=== PATIENT | male | born 1935 | race Caucasian/White ===

== ENCOUNTER → 2016-06-25 | Outpatient (CLI) | payer MEDICARE ==
[~2016-06-25] MED LIST: AMLO2.5T PO; ASCO1TAB22 PO; ASP325T PO; ASPI-999 PO; ATEN50TA PO; B12/1TAB PO; CA C1TAB75 PO; CLON0.5T25 PO; FINA1TAB10 PO; FLAX100031 PO; IRON18TA PO; IRON1TAB94 PO; MAGN250T13 PO; MULT-974 PO; OMG1KC PO; SIME125C78 PO; SIMV40TA4 PO; THYROXINE AD; UBID100C17 PO; VITA80006 PO
--- OUTSIDE RECORDS SUMMARY | 2016-06-25 13:50 | XMS REPORT | Continuity of Care Document ---
Author Author [facility] Organization [facility] Address Unknown Phone Unavailable Allergies Active Description Code Type Severity Reaction Onset Reported/Identified Relationship to Patient Clinical Status Yes No Known Drug Allergies [id number] Drug Allergy Unknown N/ A 11/12/2012 Medications Problems Date Dx Coded Attending Type Code Diagnosis Diagnosed By 10/10/2009 Ot 211.3 10/10/2009 Ot V10.05 10/10/2009 Ot V67.09 04/02/2010 Ot 780.79 04/02/2010 Ot V10.05 04/02/2010 Ot V67.09 06/09/2012 Ot 272.4 HYPERLIPIDEMIA NEC/NOS 06/09/2012 Ot 285.9 ANEMIA NOS 06/09/2012 Ot 403.90 HYPTNSV CHR KID DIS, UNSPEC, W CHR KD ST 06/09/2012 Ot 585.9 CHRONIC KIDNEY DISEASE, UNSPECIFIED 06/09/2012 Ot V10.05 HX OF COLONIC MALIGNANCY 06/09/2012 Ot V12.54 PERSONAL HX OF TIA, CEREBRAL INFARCTION 06/09/2012 Ot V45.72 ACQRD ABSENCE INTESTINE - LARGE/SMALL 06/09/2012 Ot V58.66 LONG-TERM (CURRENT) USE OF ASPIRIN 06/09/2012 Ot V58.69 OTH MED,LT,CURRENT USE 06/09/2012 Ot V67.09 SURGERY FOLLOW-UP, OTHER SURGERY 11/12/2012 BEAN CEJA MD Ot 272.4 HYPERLIPIDEMIA NEC/NOS 11/12/2012 BEAN CEJA MD Ot 401.9 HYPERTENSION NOS 11/12/2012 BEAN CEJA MD Ot 600.00 HYPERTROPHY (BENIGN) OF PROSTATE W/O URI 11/12/2012 BEAN CEJA MD Ot V10.05 HX OF COLONIC MALIGNANCY 11/12/2012 BEAN CEJA MD Ot V12.54 PERSONAL HX OF TIA, CEREBRAL INFARCTION 11/12/2012 BEAN CEJA MD Ot V45.72 ACQRD ABSENCE INTESTINE - LARGE/SMALL 11/12/2012 MARCIAL CHAKRABORTY, BEAN Ot V67.09 SURGERY FOLLOW-UP, OTHER SURGERY 12/12/2012 ALIZA CHAKRABORTY, DIAMOND Ot 272.4 HYPERLIPIDEMIA NEC/NOS 12/12/2012 ALIZA CHAKRABORTY, DIAMOND Ot 285.9 ANEMIA NOS 12/12/2012 ALIZA CHAKRABORTY, DIAMOND Ot 403.90 HYPTNSV CHR KID DIS, UNSPEC, W CHR KD ST 12/12/2012 ALIZA CHAKRABORTY, DIAMOND Hussein 585.9 CHRONIC KIDNEY DISEASE, UNSPECIFIED 12/12/2012 DIAMOND ABRAMS MD, Ot V10.05 HX OF COLONIC MALIGNANCY 12/12/2012 ALIZA CHAKRABORTY, DIAMOND Ot V12.54 PERSONAL HX OF TIA, CEREBRAL INFARCTION 12/12/2012 DIAMOND ABRAMS MD, Ot V45.72 ACQRD ABSENCE INTESTINE - LARGE/SMALL 12/12/2012 DIAMOND ABRAMS MD, Ot V58.66 LONG-TERM (CURRENT) USE OF ASPIRIN 12/12/2012 DIAMOND ABRAMS MD, Ot V58.69 OTH MED,LT,CURRENT USE 12/12/2012 ALIZA CHAKRABORTY, DIAMOND Ot V67.09 SURGERY FOLLOW-UP, OTHER SURGERY 01/04/2013 DALE CHAKRABORTY, WILLIAM Andrew Ot 593.9 RENAL URETERAL DIS NOS 06/23/2014 JONATHON CHAKRABORTY, BALTA S Ot 403.10 06/23/2014 JONATHON CHAKRABORTY, AHMED S Ot 585.3 06/23/2014 JONATHON CHAKRABORTY, AHMED S Ot 588.0 06/23/2014 JONATHON CHAKRABORTY, AHMED S Ot 791.0 06/30/2014 DALE CHAKRABORTY, WILLIAM Andrew Ot 786.05 06/30/2014 DALE CHAKRABORTY, WILLIAM Andrew Ot 786.50 01/12/2015 ALIZA CHAKRABORTY, DIAMOND Ot 272.4 01/12/2015 ALIZA CHAKRABORTY, DIAMOND Ot 285.9 01/12/2015 ALIZA CHAKRABORTY, DIAMOND Ot 403.90 01/12/2015 ALIZA CHAKRABORTY, DIAMOND Ot 585.9 01/12/2015 ALIZA CHAKRABORTY, DIAMOND Ot V10.05 01/12/2015 ALIZA CHAKRABORTY, DIAMOND Ot V12.54 01/12/2015 ALIZA CHAKRABORTY, DIAMOND Ot V45.72 01/12/2015 ALIZA CHAKRABORTY, BARRIEDILIP Ot V58.66 01/12/2015 ALIZA CHAKRABORTY, DIAMOND Ot V58.69 01/12/2015 ALIZA CHAKRABORTY, BARRIEDILIP Ot V67.09 01/12/2015 Ot 272.4 01/12/2015 Ot 403.90 01/12/2015 Ot 585.9 01/12/2015 Ot V10.05 01/12/2015 Ot V12.54 01/12/2015 Ot V45.72 01/12/2015 Ot V58.66 01/12/2015 Ot V58.69 01/12/2015 Ot V67.09 01/12/2015 Ot 593.2 01/12/2015 Ot 593.9 01/12/2015 Ot 780.79 01/12/2015 Ot V10.05 01/12/2015 Ot V67.09 01/12/2015 Ot 272.4 01/12/2015 Ot 403.90 01/12/2015 Ot 585.9 01/12/2015 Ot V10.05 01/12/2015 Ot V12.54 01/12/2015 Ot V45.72 01/12/2015 Ot V58.66 01/12/2015 Ot V58.69 01/12/2015 Ot V67.09 01/12/2015 Ot 272.4 01/12/2015 Ot 403.90 01/12/2015 Ot 585.9 01/12/2015 Ot V10.05 01/12/2015 Ot V12.54 01/12/2015 Ot V45.72 01/12/2015 Ot V58.66 01/12/2015 Ot V58.69 01/12/2015 Ot V67.09 01/12/2015 Ot V10.05 01/12/2015 Ot 272.4 01/12/2015 Ot 403.90 01/12/2015 Ot 585.9 01/12/2015 Ot V10.05 01/12/2015 Ot V12.54 01/12/2015 Ot V45.72 01/12/2015 Ot V58.66 01/12/2015 Ot V58.69 01/12/2015 Ot V67.09 01/12/2015 Ot 285.9 01/12/2015 Ot V10.05 01/12/2015 MARCIAL CHAKRABORTY, TAKAAKI Ot V72.84 01/12/2015 ARMANDO CHAKRABORTY, ALIREZA A Ot 585.3 01/12/2015 ALIZA CHAKRABORTY, BARRIE-DILIP Ot 272.4 01/12/2015 ALIZA CHAKRABORTY, SOOD-DILIP Ot 403.90 01/12/2015 ALIZA CHAKRABORTY, SOOD-DILIP Ot 585.9 01/12/2015 ALIZA CHAKRABORTY, SOOD-DILIP Ot V10.05 01/12/2015 ALIZA CHAKRABORTY, BARRIE-DILIP Ot V12.54 01/12/2015 ALIZA CHAKRABORTY, SOOD-DILIP Ot V45.72 01/12/2015 ALIZA CHAKRABORTY, SOOD-DILIP Ot V58.66 01/12/2015 ALIZA CHAKRABORTY, BARRIE-DILIP Ot V58.69 01/12/2015 ALIZA CHAKRABORTY, SOOD-DILIP Ot V67.09 01/12/2015 Ot 593.9 01/12/2015 ARMANDO CHAKRABORTY, ALIREZA A Ot 403.10 01/12/2015 ARMANDO CHAKRABORTY, ALIREZA A Ot 585.3 01/12/2015 ARMANDO CHAKRABORTY, ALIREZA A Ot 588.0 01/12/2015 ARMANDO CHAKRABORTY, ALIREZA A Ot 791.0 01/12/2015 ALIZA CHAKRABORTY, SOOD-DILIP Ot 272.4 01/12/2015 ALIZA CHAKRABORTY, BARRIE-DILIP Ot 285.9 01/12/2015 ALIZA CHAKRABORTY, BARRIE-DILIP Ot 403.90 01/12/2015 ALIZA CHAKRABORTY, SOOD-DILIP Ot 585.9 01/12/2015 ALIZA CHAKRABORTY, BARRIE-DILIP Ot V10.05 01/12/2015 ALIZA CHAKRABORTY, SOOD-DILIP Ot V12.54 01/12/2015 ALIZA CHAKRABORTY, SODO-DILIP Ot V45.72 01/12/2015 ALIZA CHAKRABORTY, SOOD-DILIP Ot V58.66 01/12/2015 ALIZA CHAKRABORTY, BARRIE-DILIP Ot V58.69 01/12/2015 ALIZA CHAKRABORTY, SOOD-DILIP Ot V67.09 01/12/2015 ARMANDO CHAKRABORTY, ALIREZA A Ot 403.10 01/12/2015 ARMANDO CHAKRABORTY, ALIREZA A Ot 585.3 01/12/2015 ARMANDO CHAKRABORTY, ALIREZA A Ot 588.0 01/12/2015 ARMANDO CHAKRABORTY, ALIREZA A Ot 791.0 01/12/2015 DALE CHAKRABORTY, WILLIAM Andrew Ot 786.05 01/12/2015 DALE CHAKRABORTY, WILLIAM Andrew Ot 786.50 01/12/2015 JONATHON CHAKRABORTY, BALTA S Ot 403.10 01/12/2015 JONATHON CHAKRABORTY, AHMED S Ot 585.3 01/12/2015 JONATHON CHAKRABORTY, MATTMED S Ot 588.0 01/12/2015 JONATHON CHAKRABORTY, MED S Ot 791.0 01/12/2015 ALIZA CHAKRABORTY, DIAMOND Ot 272.4 01/12/2015 ALIZA CHAKRABORTY, DIAMOND Ot 285.9 01/12/2015 ALIZA CHAKRABORTY, DIAMOND Ot 403.90 01/12/2015 ALIZA CHAKRABORTY, DIAMOND Ot 585.9 01/12/2015 ALIZA CHAKRABORTY, SOOD-DILIP Ot V10.05 01/12/2015 ALIZA CHAKRABORTY, DIAMOND Ot V12.54 01/12/2015 ALIZA CHAKRABORTY, SOOD-DILIP Ot V45.72 01/12/2015 ALIZA CHAKRABORTY, DIAMOND Ot V58.66 01/12/2015 ALIZA CHAKRABORTY, DIAMOND Ot V58.69 01/12/2015 ALIZA CHAKRABORTY, SOOD-DILIP Ot V67.09 01/12/2015 ALIZA CHAKRABORTY, DIAMOND Ot 285.9 01/12/2015 JONATHON CHAKRABORTY, MED S Ot 403.10 01/12/2015 JONATHON CHAKRABORTY, MATTMED S Ot 585.3 01/12/2015 JONATHON CHAKRABORTY, BALTA S Ot 588.0 01/12/2015 JONATHON CHAKRABORTY, MED S Ot 791.0 01/18/2015 ALIZA CHAKRABORTY, DIAMOND Ot 285.9 01/18/2015 JONATHON CHAKRABORTY, BALTA Copeland Ot 403.10 01/18/2015 JONATHON CHAKRABORTY, MATTMED S Ot 585.3 01/18/2015 JONATHON CHAKRABORTY, MATTMED S Ot 588.0 01/18/2015 JONATHON CHAKRABORTY, MED S Ot 791.0 02/02/2015 ALIZA CHAKRABORTY, DIAMOND Ot 272.4 02/02/2015 ALIZA CHAKRABORTY, SOOD-DILIP Ot 285.9 02/02/2015 ALIZA CHAKRABORTY, BARRIE-DILIP Ot 403.90 02/02/2015 ALIZA CHAKRABORTY, BARRIE-DILIP Ot 585.9 02/02/2015 ALIZA CHAKRABORTY, BARRIE-DILIP Ot V10.05 02/02/2015 ALIZA CHAKRABORTY, BARRIE-DILIP Ot V12.54 02/02/2015 ALIZA CHAKRABORTY, BARRIE-DILIP Ot V45.72 02/02/2015 ALIZA CHAKRABORTY, BARRIE-DILIP Ot V58.66 02/02/2015 ALIZA CHAKRABORTY, BARRIE-DILIP Ot V58.69 02/02/2015 ALIZA CHAKRABORTY, BARRIE-DILIP Ot V67.09 02/02/2015 NEW, DANYA Waters. BIOMECHANICAL ENGINEER-C Ot 263.8 02/02/2015 NEW, DANYA G. BIOMECHANICAL ENGINEER-C Ot 272.4 02/02/2015 NEW, DANYA G. BIOMECHANICAL ENGINEER-C Ot 275.2 02/02/2015 NEW, DANYA G. BIOMECHANICAL ENGINEER-C Ot 276.1 02/02/2015 NEW, DANYA G. BIOMECHANICAL ENGINEER-C Ot 403.90 02/02/2015 NEW, DANYA G. BIOMECHANICAL ENGINEER-C Ot 414.00 02/02/2015 NEW, DANYA G. BIOMECHANICAL ENGINEER-C Ot 428.0 02/02/2015 NEW, DANYA G. BIOMECHANICAL ENGINEER-C Ot 585.4 02/02/2015 NEW, DANYA G. BIOMECHANICAL ENGINEER-C Ot 599.0 02/02/2015 NEW, DANYA G. BIOMECHANICAL ENGINEER-C Ot 600.00 02/02/2015 NEW, DANYA G. BIOMECHANICAL ENGINEER-C Ot 791.0 02/09/2015 MARCIAL CHAKRABORTY, BEAN Ot E78.0 PURE HYPERCHOLESTEROLEMIA 02/09/2015 MARCIAL CHAKRABORTY, BEAN Ot I10 ESSENTIAL (PRIMARY) HYPERTENSION 02/09/2015 MARCIAL CHAKRABORTY, BEAN Ot K63.5 POLYP OF COLON 02/09/2015 MARCIAL CHAKRABORTY, BEAN Ot K64.4 RESIDUAL HEMORRHOIDAL SKIN TAGS 02/09/2015 MARCIAL CHAKRABORTY, BEAN Ot K64.8 OTHER HEMORRHOIDS 07/21/2015 NEW, DANYA Jt. BIOMECHANICAL ENGINEER-C Ot E46 07/21/2015 NEW, DANYA Jt. BIOMECHANICAL ENGINEER-C Ot E83.42 07/21/2015 NEW, DANYA G. BIOMECHANICAL ENGINEER-C Ot E87.1 07/21/2015 NEW, DANYA G. BIOMECHANICAL ENGINEER-C Ot I12.9 07/21/2015 NEW, DANYA Ferreira BIOMECHANICAL ENGINEER-C Ot I25.10 07/21/2015 NEW, DANYA Ferreira BIOMECHANICAL ENGINEER-C Ot I50.9 07/21/2015 NEW, DANYA Ferreira BIOMECHANICAL ENGINEER-C Ot N18.4 07/21/2015 NEW, DANYA Ferreira BIOMECHANICAL ENGINEER-C Ot N40.0 08/01/2015 Ot 780.79 08/01/2015 Ot V10.05 08/01/2015 Ot V67.09 08/01/2015 Ot 272.4 08/01/2015 Ot 403.90 08/01/2015 Ot 585.9 08/01/2015 Ot V10.05 08/01/2015 Ot V12.54 08/01/2015 Ot V45.72 08/01/2015 Ot V58.66 08/01/2015 Ot V58.69 08/01/2015 Ot V67.09 08/01/2015 Ot 272.4 08/01/2015 Ot 403.90 08/01/2015 Ot 585.9 08/01/2015 Ot V10.05 08/01/2015 Ot V12.54 08/01/2015 Ot V45.72 08/01/2015 Ot V58.66 08/01/2015 Ot V58.69 08/01/2015 Ot V67.09 08/01/2015 Ot V10.05 08/01/2015 Ot 272.4 08/01/2015 Ot 403.90 08/01/2015 Ot 585.9 08/01/2015 Ot V10.05 08/01/2015 Ot V12.54 08/01/2015 Ot V45.72 08/01/2015 Ot V58.66 08/01/2015 Ot V58.69 08/01/2015 Ot V67.09 08/01/2015 Ot 285.9 08/01/2015 Ot V10.05 08/01/2015 MARCIAL CHAKRABORTY, BEAN Ot V72.84 08/01/2015 ARMANDO CHAKRABORTY, ALIREZA A Ot 585.3 08/01/2015 ALIZA CHAKRABORTY, SOODDILIP Ot 272.4 08/01/2015 LAIZA CHAKRABORTY, [facility] Ot 403.90 08/01/2015 ALIZA CHAKRABORTY, [facility] Ot 585.9 08/01/2015 ALIZA CHAKRABORTY, DIAMOND Ot V10.05 08/01/2015 ALIZA CHAKRABORTY, BARRIE-DILIP Ot V12.54 08/01/2015 ALIZA CHAKRABORTY, BARRIE-DILIP Ot V45.72 08/01/2015 ALIZA CHAKRABORTY, DIAMOND Ot V58.66 08/01/2015 ALIZA CHAKRABORTY, DIAMOND Ot V58.69 08/01/2015 ALIZA CHAKRABORTY, BARRIE-DILIP Ot V67.09 08/01/2015 Ot 593.9 08/01/2015 ARMANDO CHAKRABORTY, ALIREZA A Ot 403.10 08/01/2015 ARMANDO CHAKRABORTY, ALIREZA A Ot 585.3 08/01/2015 ARMANDO CHAKRABORTY, ALIREZA A Ot 588.0 08/01/2015 ARMANDO CHAKRABORTY, ALIREZA A Ot 791.0 08/01/2015 ALIZA CHAKRABORTY, BARRIE-DILIP Ot 272.4 08/01/2015 ALIZA CHAKRABORTY, BARRIE-DILIP Ot 285.9 08/01/2015 ALIZA CHAKRABORTY, SOOD-DILIP Ot 403.90 08/01/2015 ALIZA CHAKRABORTY, SOOD-DILIP Ot 585.9 08/01/2015 ALIZA CHAKRABORTY, DIAMOND Ot V10.05 08/01/2015 ALIZA CHAKRABORTY, DIAMOND Ot V12.54 08/01/2015 ALIZA CHAKRABORTY, DIAMOND Ot V45.72 08/01/2015 ALIZA CHAKRABORTY, DIAMOND Ot V58.66 08/01/2015 ALIZA CHAKRABORTY, DIAMOND Ot V58.69 08/01/2015 ALIZA CHAKRABORTY, DIAMOND Ot V67.09 08/01/2015 ARMANDO CHAKRABORTY, ALIREZA A Ot 403.10 08/01/2015 ARMANDO CHAKRABORTY, ALIREZA A Ot 585.3 08/01/2015 ARMANDO CHAKRABORTY, ALIREZA A Ot 588.0 08/01/2015 ARMANDO CHAKRABORTY, ALIREZA A Ot 791.0 08/01/2015 DALE CHAKRABORTY, WILLIAM Andrew Ot 786.05 08/01/2015 WILLIAM HUNTER MD Ot 786.50 08/01/2015 JONATHON CHAKRABORTY, BALTA Copeland Ot 403.10 08/01/2015 JONATHON CHAKRABORTY, BALTA S Ot 585.3 08/01/2015 JONATHON CHAKRABORTY, AHMED S Ot 588.0 08/01/2015 JONATHON CHAKRABORTY, AHMED S Ot 791.0 08/01/2015 ALIZA CHAKRABORTY, SOOD-DILIP Ot 272.4 08/01/2015 ALIZA CHAKRABORTY, BARRIE-DILIP Ot 285.9 08/01/2015 ALIZA CHAKRABORTY, BARRIE-DILIP Ot 403.90 08/01/2015 ALIZA CHAKRABORTY, SOOD-DILIP Ot 585.9 08/01/2015 ALIZA CHAKRABORTY, SOOD-DILIP Ot V10.05 08/01/2015 ALIZA CHAKRABORTY, BARRIE-DILIP Ot V12.54 08/01/2015 ALIZA CHAKRABORTY, BARRIE-DILIP Ot V45.72 08/01/2015 ALIZA CHAKRABORTY, BARRIE-DILIP Ot V58.66 08/01/2015 ALIZA CHAKRABORTY, BARRIE-DILIP Ot V58.69 08/01/2015 ALIZA CHAKRABORTY, BARRIE-DILIP Ot V67.09 08/01/2015 ALIZA CHAKRABORTY, BARRIE-DILIP Ot 285.9 08/01/2015 JONATHON CHAKRABORTY, AHMED S Ot 403.10 08/01/2015 JONATHON CHAKRABORTY, AHMED S Ot 585.3 08/01/2015 JONATHON CHAKRABORTY, MED S Ot 588.0 08/01/2015 JONATHON CHAKRABORTY, MED S Ot 791.0 08/01/2015 ALIZA CHAKRABORTY, BARRIE-DILIP Ot 272.4 08/01/2015 ALIZA CHAKRABORTY, BARRIE-DILIP Ot 285.9 08/01/2015 ALIZA CHAKRABORTY, BARRIE-DILIP Ot 403.90 08/01/2015 ALIZA CHAKRABORTY, BARRIE-DILIP Ot 585.9 08/01/2015 ALIZA CHAKRABORTY, BARRIE-DILIP Ot V10.05 08/01/2015 ALIZA CHAKRABORTY, BARRIE-DILIP Ot V12.54 08/01/2015 ALIZA CHAKRABORTY, BARRIE-DILIP Ot V45.72 08/01/2015 ALIZA CHAKRABORTY, BARRIE-DILIP Ot V58.66 08/01/2015 ALIZA CHAKRABORTY, BARRIE-DILIP Ot V58.69 08/01/2015 ALIZA CHAKRABORTY, BARRIE-DILIP Ot V67.09 08/01/2015 DANYA SHEFFIELD NP-C Ot 263.8 08/01/2015 DANYA SHEFFIELD NP-C Ot 272.4 08/01/2015 DANYA SHEFFIELD NP-C Ot 275.2 08/01/2015 NEW, DANYA G. BIOMECHANICAL ENGINEER-C Ot 276.1 08/01/2015 NEW, DANYA G. BIOMECHANICAL ENGINEER-C Ot 403.90 08/01/2015 NEW, DANYA G. BIOMECHANICAL ENGINEER-C Ot 414.00 08/01/2015 NEW, DANYA G. BIOMECHANICAL ENGINEER-C Ot 428.0 08/01/2015 NEW, DANYA G. BIOMECHANICAL ENGINEER-C Ot 585.4 08/01/2015 NEW, DANYA G. BIOMECHANICAL ENGINEER-C Ot 599.0 08/01/2015 NEW, DANYA G. BIOMECHANICAL ENGINEER-C Ot 600.00 08/01/2015 NEW, DANYA G. BIOMECHANICAL ENGINEER-C Ot 791.0 08/01/2015 MARCIAL CHAKRABORTY, BEAN Ot Z01.818 08/01/2015 NEW, DANYA G. BIOMECHANICAL ENGINEER-C Ot E46 08/01/2015 NEW, DANYA G. BIOMECHANICAL ENGINEER-C Ot E83.42 08/01/2015 NEW, DANYA G. BIOMECHANICAL ENGINEER-C Ot E87.1 08/01/2015 NEW, DANYA Jt. BIOMECHANICAL ENGINEER-C Ot I12.9 08/01/2015 NEW, DANYA G. BIOMECHANICAL ENGINEER-C Ot I25.10 08/01/2015 NEW, DANYA G. BIOMECHANICAL ENGINEER-C Ot I50.9 08/01/2015 NEW, DANYA G. BIOMECHANICAL ENGINEER-C Ot N18.4 08/01/2015 NEW, DANYA G. BIOMECHANICAL ENGINEER-C Ot N40.0 08/25/2015 ALONA WADE APRN Ot G45.9 TRANSIENT CEREBRAL ISCHEMIC ATTACK, [facility] 08/25/2015 ALONA WADE APRN Ot R53.1 WEAKNESS 11/09/2015 NEW, DANYA G. BIOMECHANICAL ENGINEER-C Ot E46 UNSPECIFIED PROTEIN-CALORIE MALNUTRITION 11/09/2015 NEW, DANYA G. BIOMECHANICAL ENGINEER-C Ot E78.4 OTHER HYPERLIPIDEMIA 11/09/2015 NEW, DANYA G. BIOMECHANICAL ENGINEER-C Ot E83.42 HYPOMAGNESEMIA 11/09/2015 NEW, DANYA G. BIOMECHANICAL ENGINEER-C Ot E87.1 HYPO-OSMOLALITY AND HYPONATREMIA 11/09/2015 NEW, DANYA G. BIOMECHANICAL ENGINEER-C Ot I12.9 HYPERTENSIVE CHRONIC KIDNEY DISEASE W ST 11/09/2015 NEW, DANYA G. BIOMECHANICAL ENGINEER-C Ot I50.9 HEART FAILURE, UNSPECIFIED 11/09/2015 NEW, DANYA G. BIOMECHANICAL ENGINEER-C Ot N18.4 CHRONIC KIDNEY DISEASE, STAGE 4 (SEVERE) 11/09/2015 NEW, DANYA G. BIOMECHANICAL ENGINEER-C Ot N25.0 RENAL OSTEODYSTROPHY 11/09/2015 NEW, DANYA G. BIOMECHANICAL ENGINEER-C Ot N25.81 SECONDARY HYPERPARATHYROIDISM OF RENAL O 11/09/2015 NEW, DANYA G. BIOMECHANICAL ENGINEER-C Ot N40.0 ENLARGED PROSTATE WITHOUT LOWER URINARY 11/09/2015 NEW, DANYA G. BIOMECHANICAL ENGINEER-C Ot R80.9 PROTEINURIA, UNSPECIFIED 11/09/2015 NEW, DANYA G. BIOMECHANICAL ENGINEER-C Ot E46 UNSPECIFIED PROTEIN-CALORIE MALNUTRITION 11/09/2015 NEW, DANYA G. BIOMECHANICAL ENGINEER-C Ot E78.4 OTHER HYPERLIPIDEMIA 11/09/2015 NEW, DANYA G. BIOMECHANICAL ENGINEER-C Ot E83.42 HYPOMAGNESEMIA 11/09/2015 NEW, DANYA G. BIOMECHANICAL ENGINEER-C Ot E87.1 HYPO-OSMOLALITY AND HYPONATREMIA 11/09/2015 NEW, DANYA G. BIOMECHANICAL ENGINEER-C Ot I12.9 HYPERTENSIVE CHRONIC KIDNEY DISEASE W ST 11/09/2015 NEW, DANYA G. BIOMECHANICAL ENGINEER-C Ot I50.9 HEART FAILURE, UNSPECIFIED 11/09/2015 NEW, DANYA G. BIOMECHANICAL ENGINEER-C Ot N18.4 CHRONIC KIDNEY DISEASE, STAGE 4 (SEVERE) 11/09/2015 NEW, DANYA G. BIOMECHANICAL ENGINEER-C Ot N25.0 RENAL OSTEODYSTROPHY 11/09/2015 NEW, DANYA GMaverick BIOMECHANICAL ENGINEER-C Ot N25.81 SECONDARY HYPERPARATHYROIDISM OF RENAL O 11/09/2015 NEW, DANYA G. BIOMECHANICAL ENGINEER-C Ot N40.0 ENLARGED PROSTATE WITHOUT LOWER URINARY 11/09/2015 NEW, DANYA G. BIOMECHANICAL ENGINEER-C Ot R80.9 PROTEINURIA, UNSPECIFIED 11/25/2015 NEW, DANYA G. BIOMECHANICAL ENGINEER-C Ot E46 UNSPECIFIED PROTEIN-CALORIE MALNUTRITION 11/25/2015 NEW, DANYA G. BIOMECHANICAL ENGINEER-C Ot E78.4 OTHER HYPERLIPIDEMIA 11/25/2015 NEW, DANYA G. BIOMECHANICAL ENGINEER-C Ot E83.42 HYPOMAGNESEMIA 11/25/2015 NEW, DANYA G. BIOMECHANICAL ENGINEER-C Ot E87.1 HYPO-OSMOLALITY AND HYPONATREMIA 11/25/2015 NEW, DANYA G. BIOMECHANICAL ENGINEER-C Ot I12.9 HYPERTENSIVE CHRONIC KIDNEY DISEASE W ST 11/25/2015 NEW, DANYA WatersMaverick BIOMECHANICAL ENGINEER-C Ot I50.9 HEART FAILURE, UNSPECIFIED 11/25/2015 NEW, DANYA WatersMaverick BIOMECHANICAL ENGINEER-C Ot N18.4 CHRONIC KIDNEY DISEASE, STAGE 4 (SEVERE) 11/25/2015 NEW, DANYA WatersMaverick BIOMECHANICAL ENGINEER-C Ot N25.0 RENAL OSTEODYSTROPHY 11/25/2015 NEW, DANYA JtMaverick BIOMECHANICAL ENGINEER-C Ot N25.81 SECONDARY HYPERPARATHYROIDISM OF RENAL O 11/25/2015 NEW, DANYA JtMaverick BIOMECHANICAL ENGINEER-C Ot N40.0 ENLARGED PROSTATE WITHOUT LOWER URINARY 11/25/2015 NEW, DANYA JtMaverick BIOMECHANICAL ENGINEER-C Ot R80.9 PROTEINURIA, UNSPECIFIED 01/03/2016 ALIZA CHAKRABORTY, BARREI-DILIP Ot C18.7 MALIGNANT NEOPLASM OF SIGMOID COLON 01/03/2016 ALIZA CHAKRABORTY, BARRIE-DILIP Ot D64.9 ANEMIA, UNSPECIFIED 01/24/2016 ALIZA CHAKRABORTY, DIAMOND Ot C18.7 MALIGNANT NEOPLASM OF SIGMOID COLON 01/24/2016 ALIZA CHAKRABORTY, BARRIE-DILIP Ot D64.9 ANEMIA, UNSPECIFIED 03/05/2016 NEW, DANYA JtMaverick BIOMECHANICAL ENGINEER-C Ot E78.4 OTHER HYPERLIPIDEMIA 03/05/2016 NEW, DANYA JtMaverick BIOMECHANICAL ENGINEER-C Ot N18.3 CHRONIC KIDNEY DISEASE, STAGE 3 (MODERAT 03/06/2016 NEW, DANYA GMaverick BIOMECHANICAL ENGINEER-C Ot E46 UNSPECIFIED PROTEIN-CALORIE MALNUTRITION 03/06/2016 THU SHEFFIELDYvette WatersMaverick BIOMECHANICAL ENGINEER-C Ot E78.4 OTHER HYPERLIPIDEMIA 03/06/2016 NEW, DANYA JtMaverick BIOMECHANICAL ENGINEER-C Ot E83.42 HYPOMAGNESEMIA 03/06/2016 NEW, DANYA G. BIOMECHANICAL ENGINEER-C Ot E87.1 HYPO-OSMOLALITY AND HYPONATREMIA 03/06/2016 NEW, DANYA GMaverick BIOMECHANICAL ENGINEER-C Ot I12.9 HYPERTENSIVE CHRONIC KIDNEY DISEASE W ST 03/06/2016 YOHANNES, DANYA JtMaverick BIOMECHANICAL ENGINEER-C Ot I25.10 ATHSCL HEART DISEASE OF [place] CORONARY 03/06/2016 DANYA SHEFFIELD JtMaverick BIOMECHANICAL ENGINEER-C Ot I50.9 HEART FAILURE, UNSPECIFIED 03/06/2016 NEWDANYA JtMaverick BIOMECHANICAL ENGINEER-C Ot N18.3 CHRONIC KIDNEY DISEASE, STAGE 3 (MODERAT 03/06/2016 DANYA SHEFFIELD G. BIOMECHANICAL ENGINEER-C Ot N25.0 RENAL OSTEODYSTROPHY 03/06/2016 NEW, DANYA G. BIOMECHANICAL ENGINEER-C Ot N25.81 SECONDARY HYPERPARATHYROIDISM OF RENAL O 03/06/2016 NEW, DANYA Ferreira BIOMECHANICAL ENGINEER-C Ot N40.0 BENIGN PROSTATIC HYPERPLASIA WITHOUT LOW 03/06/2016 NEW, DANYA Ferreira BIOMECHANICAL ENGINEER-C Ot R80.9 PROTEINURIA, UNSPECIFIED 03/27/2016 NEW, DANYA Ferreira BIOMECHANICAL ENGINEER-C Ot E46 UNSPECIFIED PROTEIN-[place] MALNUTRITION 03/27/2016 NEW, DANYA Ferreira BIOMECHANICAL ENGINEER-C Ot E78.4 OTHER HYPERLIPIDEMIA 03/27/2016 NEW, DANYA G. BIOMECHANICAL ENGINEER-C Ot E83.42 HYPOMAGNESEMIA 03/27/2016 NEW, DANYA G. BIOMECHANICAL ENGINEER-C Ot E87.1 HYPO-OSMOLALITY AND HYPONATREMIA 03/27/2016 NEW, DANYA Ferreira BIOMECHANICAL ENGINEER-C Ot I12.9 HYPERTENSIVE CHRONIC KIDNEY DISEASE W ST 03/27/2016 NEW, DANYA Ferreira BIOMECHANICAL ENGINEER-C Ot I25.10 ATHSCL HEART DISEASE OF [place] CORONARY 03/27/2016 NEW, DANYA Ferreira BIOMECHANICAL ENGINEER-C Ot I50.9 HEART FAILURE, UNSPECIFIED 03/27/2016 NEW, DANYA Ferreira BIOMECHANICAL ENGINEER-C Ot N18.3 CHRONIC KIDNEY DISEASE, STAGE 3 (MODERAT 03/27/2016 NEW, DANYA Ferreira BIOMECHANICAL ENGINEER-C Ot N25.0 RENAL OSTEODYSTROPHY 03/27/2016 NEW, DANYA Ferreira BIOMECHANICAL ENGINEER-C Ot N25.81 SECONDARY HYPERPARATHYROIDISM OF RENAL O 03/27/2016 NEW, DANYA Ferreira BIOMECHANICAL ENGINEER-C Ot N40.0 BENIGN PROSTATIC HYPERPLASIA WITHOUT LOW 03/27/2016 NEW, DANYA Ferreira BIOMECHANICAL ENGINEER-C Ot R80.9 PROTEINURIA, UNSPECIFIED 04/16/2016 Ot 272.4 HYPERLIPIDEMIA NEC/NOS 04/16/2016 Ot 403.90 HYPTNSV CHR KID DIS, UNSPEC, W CHR KD ST 04/16/2016 Ot 585.9 CHRONIC KIDNEY DISEASE, UNSPECIFIED 04/16/2016 Ot V10.05 HX OF COLONIC MALIGNANCY 04/16/2016 Ot V12.54 PERSONAL HX OF TIA, CEREBRAL INFARCTION 04/16/2016 Ot V45.72 ACQRD ABSENCE INTESTINE - LARGE/SMALL 04/16/2016 Ot V58.66 LONG-TERM (CURRENT) USE OF ASPIRIN 04/16/2016 Ot V58.69 OTH MED,LT,CURRENT USE 04/16/2016 Ot V67.09 SURGERY FOLLOW-UP, OTHER SURGERY 04/16/2016 Ot V10.05 HX OF COLONIC MALIGNANCY 04/16/2016 Ot 272.4 HYPERLIPIDEMIA NEC/NOS 04/16/2016 Ot 403.90 HYPTNSV CHR KID DIS, UNSPEC, W CHR KD ST 04/16/2016 Ot 585.9 CHRONIC KIDNEY DISEASE, UNSPECIFIED 04/16/2016 Ot V10.05 HX OF COLONIC MALIGNANCY 04/16/2016 Ot V12.54 PERSONAL HX OF TIA, CEREBRAL INFARCTION 04/16/2016 Ot V45.72 ACQRD ABSENCE INTESTINE - LARGE/SMALL 04/16/2016 Ot V58.66 LONG-TERM (CURRENT) USE OF ASPIRIN 04/16/2016 Ot V58.69 OTH MED,LT,CURRENT USE 04/16/2016 Ot V67.09 SURGERY FOLLOW-UP, OTHER SURGERY 04/16/2016 Ot 285.9 ANEMIA NOS 04/16/2016 Ot V10.05 HX OF COLONIC MALIGNANCY 04/16/2016 MARCIAL CHAKRABORTY, BEAN Ot V72.84 EXAM PRE-OPERATIVE NOS 04/16/2016 ARMANDO CHAKRABORTY, ALIREZA A Ot 585.3 CHRONIC KIDNEY DISEASE, STAGE III ( MODER 04/16/2016 ALIZA CHAKRABORTY, DIAMOND Ot 272.4 HYPERLIPIDEMIA NEC/NOS 04/16/2016 ALIZA CHAKRABORTY, DIAMOND Ot 403.90 HYPTNSV CHR KID DIS, UNSPEC, W CHR KD ST 04/16/2016 DIAMOND ABRAMS MD Ot 585.9 CHRONIC KIDNEY DISEASE, UNSPECIFIED 04/16/2016 DIAMOND ABRAMS MD Ot V10.05 HX OF COLONIC MALIGNANCY 04/16/2016 DIAMOND ABRAMS MD Ot V12.54 PERSONAL HX OF TIA, CEREBRAL INFARCTION 04/16/2016 DIAMOND ABRAMS MD Ot V45.72 ACQRD ABSENCE INTESTINE - LARGE/SMALL 04/16/2016 DIAMOND ABRAMS MD Ot V58.66 LONG-TERM (CURRENT) USE OF ASPIRIN 04/16/2016 DIAMOND ABRAMS MD Ot V58.69 OTH MED,LT,CURRENT USE 04/16/2016 DIAMOND ABRAMS MD Ot V67.09 SURGERY FOLLOW-UP, OTHER SURGERY 04/16/2016 Ot 593.9 RENAL URETERAL DIS NOS 04/16/2016 ALIREZA ROBERTS MD Ot 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, BENIGN, W CHR KD ST 04/16/2016 ALIREZA ROBERTS MD Ot 585.3 CHRONIC KIDNEY DISEASE, STAGE III ( MODER 04/16/2016 ALIREZA ROBERTS MD Ot 588.0 RENAL OSTEODYSTROPHY 04/16/2016 ARMANDO CHAKRABORTY, ALIREZA Crawford Ot 791.0 PROTEINURIA 04/16/2016 DIAMOND ABRAMS MD Ot 272.4 HYPERLIPIDEMIA NEC/NOS 04/16/2016 DIAMOND ABRAMS MD Ot 285.9 ANEMIA NOS 04/16/2016 DIAMOND ABRAMS MD Ot 403.90 HYPTNSV CHR KID DIS, UNSPEC, W CHR KD ST 04/16/2016 DIAMOND ABRAMS MD Ot 585.9 CHRONIC KIDNEY DISEASE, UNSPECIFIED 04/16/2016 DIAMOND ABRAMS MD Ot V10.05 HX OF COLONIC MALIGNANCY 04/16/2016 DIAMOND ABRAMS MD Ot V12.54 PERSONAL HX OF TIA, CEREBRAL INFARCTION 04/16/2016 DIAMOND ABRAMS MD Ot V45.72 ACQRD ABSENCE INTESTINE - LARGE/SMALL 04/16/2016 DIAMOND ABRAMS MD Ot V58.66 LONG-TERM (CURRENT) USE OF ASPIRIN 04/16/2016 DIAMOND ABARMS MD Ot V58.69 OTH MED,LT,CURRENT USE 04/16/2016 DIAMOND ABRAMS MD Ot V67.09 SURGERY FOLLOW-UP, OTHER SURGERY 04/16/2016 ALIREZA ROBERTS MD Ot 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, BENIGN, W CHR KD ST 04/16/2016 ALIREZA ROBERTS MD Ot 585.3 CHRONIC KIDNEY DISEASE, STAGE III ( MODER 04/16/2016 ALIREZA ROBERTS MD Ot 588.0 RENAL OSTEODYSTROPHY 04/16/2016 ARMANDO CHAKRABORTY, ALIREZA A Ot 791.0 PROTEINURIA 04/16/2016 WILLIAM HUNTER MD Ot 786.05 SHORTNESS OF BREATH 04/16/2016 WILLIAM HUNTER MD Ot 786.50 CHEST PAIN NOS 04/16/2016 JONATHON CHAKRABORTY, AHMED S Ot 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, BENIGN, W CHR KD ST 04/16/2016 JONATHON CHAKRABORTY, BALTA S Ot 585.3 CHRONIC KIDNEY DISEASE, STAGE III ( MODER 04/16/2016 JONATHON CHAKRABORTY, BALTA S Ot 588.0 RENAL OSTEODYSTROPHY 04/16/2016 JONATHON CHAKRABORTY, BALTA S Ot 791.0 PROTEINURIA 04/16/2016 DIAMOND ABRAMS MD Ot 272.4 HYPERLIPIDEMIA NEC/NOS 04/16/2016 DIAMOND ABRAMS MD Ot 285.9 ANEMIA NOS 04/16/2016 DIAMOND ABRAMS MD Ot 403.90 HYPTNSV CHR KID DIS, UNSPEC, W CHR KD ST 04/16/2016 DIAMOND ABRAMS MD Ot 585.9 CHRONIC KIDNEY DISEASE, UNSPECIFIED 04/16/2016 DIAMOND ABRAMS MD Ot V10.05 HX OF COLONIC MALIGNANCY 04/16/2016 DIAMOND ABRAMS MD Ot V12.54 PERSONAL HX OF TIA, CEREBRAL INFARCTION 04/16/2016 DIAMOND ABRAMS MD Ot V45.72 ACQRD ABSENCE INTESTINE - LARGE/SMALL 04/16/2016 DIAMOND ABRAMS MD Ot V58.66 LONG-TERM (CURRENT) USE OF ASPIRIN 04/16/2016 DIAMOND ABRAMS MD Ot V58.69 OTH MED,LT,CURRENT USE 04/16/2016 DIAMOND ABRAMS MD Ot V67.09 SURGERY FOLLOW-UP, OTHER SURGERY 04/16/2016 DIAMOND ABRAMS MD Ot 285.9 ANEMIA NOS 04/16/2016 JONATHON CHAKRABORTY, BALTA Cop[place] Ot 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, BENIGN, W CHR KD ST 04/16/2016 JONATHON CHAKRABORTY, BALTA S Ot 585.3 CHRONIC KIDNEY DISEASE, STAGE III ( MODER 04/16/2016 JONATHON CHAKRABORTY, BALTA S Ot 588.0 RENAL OSTEODYSTROPHY 04/16/2016 JONATHON CHAKRABORTY, MATTMED S Ot 791.0 PROTEINURIA 04/16/2016 DIAMOND ABRAMS MD Ot 272.4 HYPERLIPIDEMIA NEC/NOS 04/16/2016 DIAMOND ABRAMS MD Ot 285.9 ANEMIA NOS 04/16/2016 DIAMOND ABRAMS MD Ot 403.90 HYPTNSV CHR KID DIS, UNSPEC, W CHR KD ST 04/16/2016 DIAMOND ABRAMS MD Ot 585.9 CHRONIC KIDNEY DISEASE, UNSPECIFIED 04/16/2016 DIAMOND ABRAMS MD Ot V10.05 HX OF COLONIC MALIGNANCY 04/16/2016 DIAMOND ABRAMS MD Ot V12.54 PERSONAL HX OF TIA, CEREBRAL INFARCTION 04/16/2016 DIAMOND ABRAMS MD Ot V45.72 ACQRD ABSENCE INTESTINE - LARGE/SMALL 04/16/2016 DIAMOND ABRAMS MD, Ot V58.66 LONG-TERM (CURRENT) USE OF ASPIRIN 04/16/2016 DIAMOND ABRAMS MD, Ot V58.69 OTH MED,LT,CURRENT USE 04/16/2016 DIAMOND ABRAMS MD, Ot V67.09 SURGERY FOLLOW-UP, OTHER SURGERY 04/16/2016 DANYA SHEFFIELD BIOMECHANICAL ENGINEER-C Ot 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 MALNUTR NEC 04/16/2016 DANYA SHEFFIELD BIOMECHANICAL ENGINEER-C Ot 272.4 HYPERLIPIDEMIA NEC/NOS 04/16/2016 DANYA SHEFFIELD NP-C Ot 275.2 DIS MAGNESIUM METABOLISM 04/16/2016 DANYA SHEFFIELD BIOMECHANICAL ENGINEER-C Ot 276.1 HYPOSMOLALITY 04/16/2016 DANYA SHEFFIELD NP-C Ot 403.90 HYPTNSV CHR KID DIS, UNSPEC, W CHR KD ST 04/16/2016 DANYA SHEFFIELD BIOMECHANICAL ENGINEER-C Ot 414.00 CORON ATHEROSCLER NOS TYPE VESSEL, NATIV 04/16/2016 DANYA SHEFFIELD NP-C Ot 428.0 CONGESTIVE HEART FAILURE NOS 04/16/2016 DANYA SHEFFIELD NP-C Ot 585.4 CHRONIC KIDNEY DISEASE, STAGE IV (SEVERE 04/16/2016 DANYA SHEFFIELD BIOMECHANICAL ENGINEER-C Ot 599.0 URIN TRACT INFECTION NOS 04/16/2016 DANYA SHEFFIELD BIOMECHANICAL ENGINEER-C Ot 600.00 HYPERTROPHY (BENIGN) OF PROSTATE W/O URI 04/16/2016 DANYA SHEFFIELD BIOMECHANICAL ENGINEER-C Ot 791.0 PROTEINURIA 04/16/2016 MARCIAL CHAKRABORTY, BEAN Ot Z01.818 ENCOUNTER FOR OTHER PREPROCEDURAL EXAMIN 04/16/2016 NEW, DANYA G. BIOMECHANICAL ENGINEER-C Ot E46 UNSPECIFIED PROTEIN-[place]ORIE MALNUTRITION 04/16/2016 NEW, DANYA G. BIOMECHANICAL ENGINEER-C Ot E83.42 HYPOMAGNESEMIA 04/16/2016 NEW, DANYA G. BIOMECHANICAL ENGINEER-C Ot E87.1 HYPO-OSMOLALITY AND HYPONATREMIA 04/16/2016 NEW, DANYA G. BIOMECHANICAL ENGINEER-C Ot I12.9 HYPERTENSIVE CHRONIC KIDNEY DISEASE W ST 04/16/2016 NEW, DANYA G. BIOMECHANICAL ENGINEER-C Ot I25.10 ATHSCL HEART DISEASE OF [place] CORONARY 04/16/2016 NEW, DANYA G. BIOMECHANICAL ENGINEER-C Ot I50.9 HEART FAILURE, UNSPECIFIED 04/16/2016 NEW, DANYA G. BIOMECHANICAL ENGINEER-C Ot N18.4 CHRONIC KIDNEY DISEASE, STAGE 4 (SEVERE) 04/16/2016 NEW, DANYA G. BIOMECHANICAL ENGINEER-C Ot N40.0 ENLARGED PROSTATE WITHOUT LOWER URINARY 04/16/2016 ALONA WADE EDUCATION AND TRAINING COORDINATOR Ot G45.9 TRANSIENT CEREBRAL ISCHEMIC ATTACK, UNSP 04/16/2016 ALONA WADE EDUCATION AND TRAINING COORDINATOR Ot R53.1 WEAKNESS 04/16/2016 NEW, DANYA G. BIOMECHANICAL ENGINEER-C Ot E46 UNSPECIFIED PROTEIN-[place] MALNUTRITION 04/16/2016 NEW, DANYA G. BIOMECHANICAL ENGINEER-C Ot E78.4 OTHER HYPERLIPIDEMIA 04/16/2016 NEW, DANYA G. BIOMECHANICAL ENGINEER-C Ot E83.42 HYPOMAGNESEMIA 04/16/2016 NEW, DANYA G. BIOMECHANICAL ENGINEER-C Ot E87.1 HYPO-OSMOLALITY AND HYPONATREMIA 04/16/2016 NEW, DANYA G. BIOMECHANICAL ENGINEER-C Ot I12.9 HYPERTENSIVE CHRONIC KIDNEY DISEASE W ST 04/16/2016 NEW, DANYA G. BIOMECHANICAL ENGINEER-C Ot I50.9 HEART FAILURE, UNSPECIFIED 04/16/2016 NEW, DANYA G. BIOMECHANICAL ENGINEER-C Ot N18.4 CHRONIC KIDNEY DISEASE, STAGE 4 (SEVERE) 04/16/2016 NEW, DANYA G. BIOMECHANICAL ENGINEER-C Ot N25.0 RENAL OSTEODYSTROPHY 04/16/2016 NEW, DANYA G. BIOMECHANICAL ENGINEER-C Ot N25.81 SECONDARY HYPERPARATHYROIDISM OF RENAL O 04/16/2016 NEW, DANYA G. BIOMECHANICAL ENGINEER-C Ot N40.0 ENLARGED PROSTATE WITHOUT LOWER URINARY 04/16/2016 NEW, DANYA G. BIOMECHANICAL ENGINEER-C Ot R80.9 PROTEINURIA, UNSPECIFIED 04/16/2016 ALIZA CHAKRABORTY, DIAMOND Ot C18.7 MALIGNANT NEOPLASM OF SIGMOID COLON 04/16/2016 ALIZA CHAKRABORTY, DIAMOND Ot D64.9 ANEMIA, UNSPECIFIED 04/16/2016 NEW, DANYA JtMaverick BIOMECHANICAL ENGINEER-C Ot E46 UNSPECIFIED PROTEIN-[place]ORIE MALNUTRITION 04/16/2016 NEW, DANYA JtMaverick BIOMECHANICAL ENGINEER-C Ot E78.4 OTHER HYPERLIPIDEMIA 04/16/2016 NEW, DANYA Ferreira BIOMECHANICAL ENGINEER-C Ot E83.42 HYPOMAGNESEMIA 04/16/2016 NEW, DANYA JtMaverick BIOMECHANICAL ENGINEER-C Ot E87.1 HYPO-OSMOLALITY AND HYPONATREMIA 04/16/2016 NEW, DANYA JtMaverick BIOMECHANICAL ENGINEER-C Ot I12.9 HYPERTENSIVE CHRONIC KIDNEY DISEASE W ST 04/16/2016 NEW, DANYA JtMaverick BIOMECHANICAL ENGINEER-C Ot I25.10 ATHSCL HEART DISEASE OF [place] CORONARY 04/16/2016 NEW, DANYA JtMaverick BIOMECHANICAL ENGINEER-C Ot I50.9 HEART FAILURE, UNSPECIFIED 04/16/2016 NEW, DANYA JtMaverick BIOMECHANICAL ENGINEER-C Ot N18.3 CHRONIC KIDNEY DISEASE, STAGE 3 (MODERAT 04/16/2016 NEW, DANYA JtMaverick BIOMECHANICAL ENGINEER-C Ot N25.0 RENAL OSTEODYSTROPHY 04/16/2016 NEW, DANYA JtMaverick BIOMECHANICAL ENGINEER-C Ot N25.81 SECONDARY HYPERPARATHYROIDISM OF RENAL O 04/16/2016 NEW, DANYA JtMaverick BIOMECHANICAL ENGINEER-C Ot N40.0 BENIGN PROSTATIC HYPERPLASIA WITHOUT LOW 04/16/2016 NEW, DANYA JtMaverick BIOMECHANICAL ENGINEER-C Ot R80.9 PROTEINURIA, UNSPECIFIED 04/16/2016 NEW, DANYA JtMaverick BIOMECHANICAL ENGINEER-C Ot Z53.9 PROCEDURE AND TREATMENT NOT CARRIED OUT, 04/17/2016 NEW, DANYA JtMaverick BIOMECHANICAL ENGINEER-C Ot E46 UNSPECIFIED PROTEIN-[place] MALNUTRITION 04/17/2016 NEW, DANYA JtMaverick BIOMECHANICAL ENGINEER-C Ot E78.4 OTHER HYPERLIPIDEMIA 04/17/2016 NEW, DANYA JtMaverick BIOMECHANICAL ENGINEER-C Ot E83.42 HYPOMAGNESEMIA 04/17/2016 NEW, DANYA JtMaverick BIOMECHANICAL ENGINEER-C Ot E87.1 HYPO-OSMOLALITY AND HYPONATREMIA 04/17/2016 NEW, DANYA JtMaverick BIOMECHANICAL ENGINEER-C Ot I13.0 HYP HRT CHR KDNY DIS W HRT FAIL AND ST 04/17/2016 NEW, DANYA JtMaverick BIOMECHANICAL ENGINEER-C Ot I25.10 ATHSCL HEART DISEASE OF [place] CORONARY 04/17/2016 NEW, DANYA Ferreira BIOMECHANICAL ENGINEER-C Ot I50.9 HEART FAILURE, UNSPECIFIED 04/17/2016 NEW, DANYA Ferreira BIOMECHANICAL ENGINEER-C Ot N18.3 CHRONIC KIDNEY DISEASE, STAGE 3 (MODERAT 04/17/2016 NEW, DANYA Ferreira BIOMECHANICAL ENGINEER-C Ot N25.0 RENAL OSTEODYSTROPHY 04/17/2016 NEW, DANYA Ferreira BIOMECHANICAL ENGINEER-C Ot N25.81 SECONDARY HYPERPARATHYROIDISM OF RENAL O 04/17/2016 NEW, DANYA Ferreira BIOMECHANICAL ENGINEER-C Ot N40.0 BENIGN PROSTATIC HYPERPLASIA WITHOUT LOW 04/17/2016 NEW, DANYA Ferreira BIOMECHANICAL ENGINEER-C Ot R80.9 PROTEINURIA, UNSPECIFIED 05/15/2016 NEW, DANYA Ferreira BIOMECHANICAL ENGINEER-C Ot E46 UNSPECIFIED PROTEIN-[place] MALNUTRITION 05/15/2016 NEW, DANYA Ferreira BIOMECHANICAL ENGINEER-C Ot E78.4 OTHER HYPERLIPIDEMIA 05/15/2016 NEW, DANYA Ferreira BIOMECHANICAL ENGINEER-C Ot E83.42 HYPOMAGNESEMIA 05/15/2016 NEW, DANYA Ferreira BIOMECHANICAL ENGINEER-C Ot E87.1 HYPO-OSMOLALITY AND HYPONATREMIA 05/15/2016 NEW, DANYA Ferreira BIOMECHANICAL ENGINEER-C Ot I13.0 HYP HRT CHR KDNY DIS W HRT FAIL AND ST 05/15/2016 NEW, DANYA Ferreira BIOMECHANICAL ENGINEER-C Ot I25.10 ATHSCL HEART DISEASE OF [place] CORONARY 05/15/2016 NEW, DANYA Ferreira BIOMECHANICAL ENGINEER-C Ot I50.9 HEART FAILURE, UNSPECIFIED 05/15/2016 NEW, DANYA Ferreira BIOMECHANICAL ENGINEER-C Ot N18.3 CHRONIC KIDNEY DISEASE, STAGE 3 (MODERAT 05/15/2016 NEW, DANYA Ferreira BIOMECHANICAL ENGINEER-C Ot N25.0 RENAL OSTEODYSTROPHY 05/15/2016 NEW, DANYA Ferreira BIOMECHANICAL ENGINEER-C Ot N25.81 SECONDARY HYPERPARATHYROIDISM OF RENAL O 05/15/2016 NEW, DANYA Ferreira BIOMECHANICAL ENGINEER-C Ot N40.0 BENIGN PROSTATIC HYPERPLASIA WITHOUT LOW 05/15/2016 NEW, DANYA Ferreira BIOMECHANICAL ENGINEER-C Ot R80.9 PROTEINURIA, UNSPECIFIED Procedures Results Test Result Range Complete blood count (CBC) with automated white blood cell (WBC) differential - 03/05/16 18:40 Blood leukocytes automated count (number/volume) 8.8 10*3/ uL 4.3-11.0 Blood erythrocytes automated count (number/volume) 4.08 10*6 /uL 4.35-5.85 Venous blood hemoglobin measurement (mass/volume) 13.0 g/dL 13.3-17.7 Blood hematocrit (volume fraction) 38 % 40-54 Automated erythrocyte mean corpuscular volume 92 [foz_us] 80-99 Automated erythrocyte mean corpuscular hemoglobin (mass per erythrocyte) 32 pg 25-34 Automated erythrocyte mean corpuscular hemoglobin concentration measurement ( mass/volume) 35 g/dL 32-36 Automated erythrocyte distribution width ratio 11.6 % 10.0-14.5 Automated blood platelet count (count/volume) 221 10*3/uL 130-400 Automated blood platelet mean volume measurement 9.3 [foz_us ] 7.4-10.4 Automated blood neutrophils/100 leukocytes 36 % 42-75 Automated blood lymphocytes/100 leukocytes 19 % 12-44 Blood monocytes/100 leukocytes 7 % 0-12 Automated blood eosinophils/100 leukocytes 36 % 0-10 Automated blood basophils/100 leukocytes 1 % 0-10 Blood neutrophils automated count (number/volume) 3.2 10*3 1.8-7.8 Blood lymphocytes automated count (number/volume) 1.7 10*3 1.0-4.0 Blood monocytes automated count (number/volume) 0.7 10*3 0.0-1.0 Automated eosinophil count 3.2 10*3/uL 0.0-0.3 Automated blood basophil count (count/volume) 0.1 10*3/uL 0.0-0.1 Serum or plasma renal function panel (Na, K, Cl, CO2, BUN, Cr, glucose,Ca, phos , alb) - 03/05/16 18:40 Serum or plasma sodium measurement (moles/volume) 132 mmol/ L 135-145 Serum or plasma potassium measurement (moles/volume) 4.2 mmol/L 3.6-5.0 Serum or plasma chloride measurement (moles/volume) 102 mmol /L 98-107 Carbon dioxide 22 mmol/L 21-32 Serum or plasma anion gap determination (moles/volume) 8 mmol/L 5-14 Serum or plasma urea nitrogen measurement (mass/volume) 24 mg/dL 7-18 Serum or plasma creatinine measurement (mass/volume) 2.70 mg /dL 0.60-1.30 Serum or plasma urea nitrogen/creatinine mass ratio 9 NRG Serum or plasma creatinine measurement with calculation of estimated glomerular filtration rate 23 NRG Serum or plasma glucose measurement (mass/volume) 117 mg/dL 70-105 Serum or plasma calcium measurement (mass/volume) 8.2 mg/dL 8.5-10.1 Serum or plasma albumin measurement (mass/volume) 3.8 g/dL 3.2-4.5 Serum or plasma phosphate measurement (mass/volume) 3.1 mg/ dL 2.3-4.7 Magnesium - 03/05/16 18:40 Magnesium 2.2 mg/dL 1.8-2.4 Lipid 1996 panel - 03/05/16 18:40 Serum or plasma triglyceride measurement (mass/volume) 117 mg/dL <150 Serum or plasma cholesterol measurement (mass/volume) 164 mg /dL < 200 Serum or plasma cholesterol in HDL measurement (mass/volume) 47 mg/dL 40-60 Cholesterol in LDL [mass/volume] in serum or plasma by direct assay 108 mg/dL 1-129 Serum or plasma cholesterol in VLDL measurement (mass/volume) 23 mg/dL 5-40 Complete urinalysis with reflex to culture - 03/05/16 18:52 Urine color determination YELLOW NRG Urine clarity determination CLEAR NRG Urine pH measurement by test strip 6.5 5 -9 Specific gravity of urine by test strip 1.010 1.016-1.022 Urine protein assay by test strip, semi-quantitative NEGATIVE NEGATIVE Urine glucose detection by automated test strip NEGATIVE NEGATIVE Erythrocytes detection in urine sediment by light microscopy NEGATIVE NEGATIVE Urine ketones detection by automated test strip NEGATIVE NEGATIVE Urine nitrite detection by test strip NEGATIVE NEGATIVE Urine total bilirubin detection by test strip NEGATIVE NEGATIVE Urine urobilinogen measurement by automated test strip (mass/volume) NORMAL NORMAL Urine leukocyte esterase detection by dipstick NEGATIVE NEGATIVE Automated urine sediment erythrocyte count by microscopy (number/high power field) NONE NRG Automated urine sediment leukocyte count by microscopy (number/high power field ) [HPF] NRG Bacteria detection in urine sediment by light microscopy NEGATIVE NRG Squamous epithelial cells detection in urine sediment by light microscopy 0-2 NRG Crystals detection in urine sediment by light microscopy NONE NRG Casts detection in urine sediment by light microscopy NONE NRG Mucus detection in urine sediment by light microscopy NEGATIVE NRG Complete urinalysis with reflex to culture NO NRG Urine protein/creatinine mass ratio - 03/05/16 18:52 Urine protein measurement (mass/volume) < mg/dL 6-12 Urine creatinine measurement (mass/volume) 79 mg/dL 30-125 Urine protein/creatinine mass ratio TNP NRG Serum or plasma renal function panel (Na, K, Cl, CO2, BUN, Cr, glucose,Ca, phos , alb) - 04/16/16 14:30 Serum or plasma sodium measurement (moles/volume) 135 mmol/ L 135-145 Serum or plasma potassium measurement (moles/volume) 4.7 mmol/L 3.6-5.0 Serum or plasma chloride measurement (moles/volume) 103 mmol /L 98-107 Carbon dioxide 23 mmol/L 21-32 Serum or plasma anion gap determination (moles/volume) 9 mmol/L 5-14 Serum or plasma urea nitrogen measurement (mass/volume) 21 mg/dL 7-18 Serum or plasma creatinine measurement (mass/volume) 2.22 mg /dL 0.60-1.30 Serum or plasma urea nitrogen/creatinine mass ratio 9 NRG Serum or plasma creatinine measurement with calculation of estimated glomerular filtration rate 29 NRG Serum or plasma glucose measurement (mass/volume) 102 mg/dL 70-105 Serum or plasma calcium measurement (mass/volume) 8.8 mg/dL 8.5-10.1 Serum or plasma albumin measurement (mass/volume) 4.0 g/dL 3.2-4.5 Serum or plasma phosphate measurement (mass/volume) 3.2 mg/ dL 2.3-4.7 Encounters ACCT No. Visit Date/Time Discharge Status Pt. Type Provider Facility Loc./Unit Complaint [id number] 02/09/2015 09:05:00 2014 13:00:00 DIS Outpatient BEAN CEJA MD [facility] SDC SCREENING,HX. COLON CA [id number] 02/04/2015 05:33:00 2014 23:59:59 CLS Outpatient BEAN CEJA MD [facility] PREOP HX OF COLON CA [id number] 01/12/2015 15:46:00 2014 23:59:59 CLS Outpatient DANYA SHEFFIELD [facility] LAB BENIGN PROSTATIC HYPERPLASIA [id number] 01/12/2015 15:04:00 2014 23:59:59 CLS Outpatient DIAMOND ABRAMS MD [facility] ONC [id number] 12/28/2014 16:44:00 2014 23:59:59 CLS Outpatient BALTA HOLT MD [facility] LAB COMPLETE BLOOD COUNT [id number] 12/28/2014 12:15:00 2014 23:59:59 CLS Outpatient DIAMOND ABRAMS MD [facility] ONC [id number] 12/22/2014 14:53:00 2014 23:59:59 CLS Outpatient DIAMOND ABRAMS MD [facility] ONC [id number] 06/20/2014 15:18:00 2014 23:59:59 CLS Outpatient BALTA HOLT MD [facility] LAB RENAL FUNCTION,RENAL PANEL [id number] 06/02/2014 07:09:00 2014 23:59:59 CLS Outpatient WILLIAM HUNTER MD [facility] CARD CP SOB [id number] 01/07/2014 11:50:00 2013 23:59:59 CLS Outpatient ALIREZA ROBERTS MD [facility] LAB BENIGN ESSENTIAL HYPERTENSION,CHRONIC KIDNEY DISEA [id number] 12/23/2013 15:09:00 2013 23:59:59 CLS Outpatient DIAMOND ABRAMS MD [facility] ONC [id number] 04/03/2013 14:44:00 2012 23:59:59 CLS Outpatient ALIREZA ROBERTS MD [facility] LAB CHRONIC KIDNEY DISEASE; BENIGN ESSENTIAL HYPER [id number] 10/09/2012 08:21:00 2012 00:01:00 DIS Outpatient WILLIAM HUNTER MD [facility] LAB RENAL INSUFFICIENCY [id number] 12/19/2012 11:03:00 2012 23:59:59 CLS Outpatient DIAMOND ABRAMS MD [facility] ONC [id number] 12/12/2012 12:07:00 2012 23:59:59 CLS Outpatient ALIREZA ROBERTS MD [facility] RAD CKD STAGE III [id number] 09/17/2012 14:14:00 2012 07:59:00 DIS Outpatient DIAMOND ABRAMS MD [facility] ONC [id number] 11/12/2012 08:51:00 2012 11:40:00 DIS Outpatient BEAN CEJA MD [facility] SDC HISTORY OF POLYPS [id number] 11/05/2012 08:21:00 2012 23:59:59 CLS Outpatient BEAN CEJA MD [facility] PREOP HISTORY OF POLYPS [id number] 04/16/2016 14:23:00 ACT Outpatient DANYA SHEFFIELD BIOMECHANICAL ENGINEER-C [facility] LAB CHRONIC KIDNEY DISEASE [id number] 03/05/2016 18:28:00 ACT Outpatient DANYA SHEFFIELD BIOMECHANICAL ENGINEER-C [facility] LAB [id number] 03/05/2016 18:17:00 ACT Outpatient DANYA SHEFFIELD BIOMECHANICAL ENGINEER-C [facility] LAB BENIGN PROSTATIC PLASMA, HYPOMAGNESEMIA,OTHER PROT [id number] 12/27/2015 14:17:00 ACT Outpatient BARRIE ABRAMS MD [facility] ONC [id number] 11/04/2015 09:41:00 ACT Outpatient DANYA SHEFFIELD BIOMECHANICAL ENGINEER-C [facility] LAB CONGESTIVE HEART FAILURE,CHRONIC KIDNEY DISEASE [id number] 08/01/2015 14:00:00 ACT Outpatient ALONA WADE APRN [facility] RAD TIA,WEAKNESS [id number] 07/01/2015 14:04:00 ACT Outpatient DANYA SHEFFIELD BIOMECHANICAL ENGINEER-C [facility] LAB HYPOMAGNESIUM,CKD,RENAL OSTEODYSTROPHY [id number] 01/05/2013 00:00:00 Document Registration [id number] 03/11/2012 14:57:00 Document Registration [id number] 10/23/2011 15:36:00 Document Registration [id number] 09/04/2011 14:43:00 Document Registration [id number] 01/31/2011 16:00:00 Document Registration [id number] 01/23/2011 13:16:00 Document Registration [id number] 07/18/2010 13:29:00 Document Registration [id number] 04/03/2010 00:00:00 Document Registration [id number] 01/05/2010 12:01:00 Document Registration [id number] 01/03/2010 13:14:00 Document Registration [id number] 01/02/2010 11:25:00 Document Registration [id number] 10/10/2009 09:09:00 Document Registration
[2016-06-25 14:12] LABS: MEAN PLATELET VOLUME 9.7 FL (7.4-10.4); RED BLOOD COUNT 4.26 10^6/uL (4.35-5.85); WHITE BLOOD COUNT 7.8 10^3/uL (4.3-11.0)
[2016-06-25 14:17] LABS: BILIRUBIN,URINE NEGATIVE (NEGATIVE); KETONES,URINE NEGATIVE (NEGATIVE); LEUKOCYTE ESTERASE ,URINE NEGATIVE (NEGATIVE); NITRITE,URINE NEGATIVE (NEGATIVE); PH,URINE 5 (5-9); PROTEIN,URINE NEGATIVE (NEGATIVE); UROBILINOGEN,URINE NORMAL (NORMAL)
[2016-06-25 14:33] LABS: CALCIUM 8.7 MG/DL (8.5-10.1); CREATININE SERUM 1.89 MG/DL (0.60-1.30); PHOSPHORUS 3.5 MG/DL (2.3-4.7); POTASSIUM 4.7 MMOL/L (3.6-5.0)
[2016-06-26 07:41] LABS: CALCIUM PARA THYROID HORMONE 8.8 mg/dL (8.5-10.5)
== END ==
LOC: LAB 13:43
PROVIDERS: ATTEND Nurse Practitioner
DX: I13.0 Hypertensive heart and chronic kidney disease with heart failure and stage 1 through stage 4 chronic kidney disease, or unspecified chronic kidney disease (principal); I50.9 Heart failure, unspecified; N18.4 Chronic kidney disease, stage 4 (severe); E46 Unspecified protein-calorie malnutrition; E87.1 Hypo-osmolality and hyponatremia; E78.4 Other hyperlipidemia; I25.10 Atherosclerotic heart disease of native coronary artery without angina pectoris; N25.0 Renal osteodystrophy; R80.9 Proteinuria, unspecified; N25.81 Secondary hyperparathyroidism of renal origin; E83.42 Hypomagnesemia
CPT/HCPCS: 36415; 80069; 81000; 82306; 82570; 83970; 84156; 85027

== ENCOUNTER → 2016-07-30 | Outpatient (CLI) | payer MEDICARE ==
[2016-07-30 10:04] LABS: BASOPHILS # (AUTO) 0.1 10^3/uL (0.0-0.1); BASOPHILS % (AUTO) 1 % (0-10); EOSINOPHILS % (AUTO) 40 % (0-10); LYMPHOCYTES # (AUTO) 1.4 X 10^3 (1.0-4.0); LYMPHOCYTES % (AUTO) 19 % (12-44); MEAN CORPUSCULAR HEMOGLOBIN 31 PG (25-34); MEAN CORPUSCULAR HGB CONC 34 G/DL (32-36); MEAN CORPUSCULAR VOLUME 91 FL (80-99); MEAN PLATELET VOLUME 9.3 FL (7.4-10.4); MONOCYTES # (AUTO) 0.8 X 10^3 (0.0-1.0); MONOCYTES % (AUTO) 10 % (0-12); NEUTROPHILS # (AUTO) 2.3 X 10^3 (1.8-7.8); NEUTROPHILS % (AUTO) 30 % (42-75); PLATELET COUNT 226 10^3/uL (130-400); RED BLOOD COUNT 4.17 10^6/uL (4.35-5.85); WHITE BLOOD COUNT 7.5 10^3/uL (4.3-11.0)
[2016-07-30 10:49] LABS: CREATININE SERUM 2.16 MG/DL (0.60-1.30); POTASSIUM 4.3 MMOL/L (3.6-5.0)
[2016-07-30 10:50] LABS: ALBUMIN 3.7 G/DL (3.2-4.5); BILIRUBIN,TOTAL 0.5 MG/DL (0.1-1.0); CALCIUM 8.8 MG/DL (8.5-10.1); TOTAL PROTEIN 6.1 G/DL (6.4-8.2)
== END ==
LOC: ONC 09:39
PROVIDERS: ATTEND Internal Medicine Hematology & Oncology
DX: C18.7 Malignant neoplasm of sigmoid colon (principal); D64.9 Anemia, unspecified; I12.9 Hypertensive chronic kidney disease with stage 1 through stage 4 chronic kidney disease, or unspecified chronic kidney disease; N18.9 Chronic kidney disease, unspecified; E78.5 Hyperlipidemia, unspecified; Z86.73 Personal history of transient ischemic attack (TIA), and cerebral infarction without residual deficits; Z79.899 Other long term (current) drug therapy
CPT/HCPCS: 36415; 80053; 82728; 83540; 85025; 99213

== ENCOUNTER → 2016-09-02 | Outpatient (CLI) | payer MEDICARE ==
[2016-09-02 09:53] LABS: BILIRUBIN,URINE NEGATIVE (NEGATIVE); KETONES,URINE NEGATIVE (NEGATIVE); LEUKOCYTE ESTERASE ,URINE NEGATIVE (NEGATIVE); NITRITE,URINE NEGATIVE (NEGATIVE); PH,URINE 7 (5-9); PROTEIN,URINE NEGATIVE (NEGATIVE); UROBILINOGEN,URINE NORMAL (NORMAL)
[2016-09-02 10:04] LABS: MEAN PLATELET VOLUME 9.5 FL (7.4-10.4); RED BLOOD COUNT 4.56 10^6/uL (4.35-5.85); RED CELL DISTRIBUTION WIDTH 11.9 % (10.0-14.5); WHITE BLOOD COUNT 8.4 10^3/uL (4.3-11.0)
[2016-09-02 10:14] LABS: PROTEIN/CREATININE RATIO 0.11
[2016-09-02 10:38] LABS: ALBUMIN 4.2 G/DL (3.2-4.5); CALCIUM 9.1 MG/DL (8.5-10.1); CREATININE SERUM 2.45 MG/DL (0.60-1.30); MAGNESIUM 2.4 MG/DL (1.8-2.4); PHOSPHORUS 3.5 MG/DL (2.3-4.7); POTASSIUM 4.5 MMOL/L (3.6-5.0)
[2016-09-03 07:47] LABS: CALCIUM PARA THYROID HORMONE 9.1 mg/dL (8.5-10.5)
== END ==
LOC: LAB 09:32
PROVIDERS: ATTEND Nurse Practitioner
DX: E78.4 Other hyperlipidemia (principal); E55.9 Vitamin D deficiency, unspecified; I13.0 Hypertensive heart and chronic kidney disease with heart failure and stage 1 through stage 4 chronic kidney disease, or unspecified chronic kidney disease; I50.9 Heart failure, unspecified; N18.4 Chronic kidney disease, stage 4 (severe); E46 Unspecified protein-calorie malnutrition; E87.1 Hypo-osmolality and hyponatremia; I25.10 Atherosclerotic heart disease of native coronary artery without angina pectoris; N25.0 Renal osteodystrophy; R80.9 Proteinuria, unspecified; N25.81 Secondary hyperparathyroidism of renal origin; E83.42 Hypomagnesemia; N18.3 Chronic kidney disease, stage 3 (moderate); N40.0 Benign prostatic hyperplasia without lower urinary tract symptoms; I12.9 Hypertensive chronic kidney disease with stage 1 through stage 4 chronic kidney disease, or unspecified chronic kidney disease; Z53.9 Procedure and treatment not carried out, unspecified reason
CPT/HCPCS: 36415; 80061; 80069; 81000; 82306; 82570; 83735; 83970; 84156; 85027

== ENCOUNTER → 2016-10-23 | Outpatient (CLI) | payer MEDICARE ==
[2016-10-23 13:43] LABS: ALBUMIN 3.8 GM/DL (3.2-4.5); CALCIUM 8.8 MG/DL (8.5-10.1); CREATININE SERUM 2.19 MG/DL (0.60-1.30); ICTERUS 0.4 (-100-1.9); PHOSPHORUS 3.8 MG/DL (2.3-4.7); POTASSIUM 4.6 MMOL/L (3.6-5.0)
== END ==
LOC: LAB 13:09
PROVIDERS: ATTEND Nurse Practitioner
DX: N40.0 Benign prostatic hyperplasia without lower urinary tract symptoms (principal); E83.42 Hypomagnesemia; E46 Unspecified protein-calorie malnutrition; E87.1 Hypo-osmolality and hyponatremia; E78.4 Other hyperlipidemia; I12.9 Hypertensive chronic kidney disease with stage 1 through stage 4 chronic kidney disease, or unspecified chronic kidney disease; N18.4 Chronic kidney disease, stage 4 (severe); I50.9 Heart failure, unspecified; I25.10 Atherosclerotic heart disease of native coronary artery without angina pectoris; I10 Essential (primary) hypertension; N18.3 Chronic kidney disease, stage 3 (moderate); N25.0 Renal osteodystrophy; R80.9 Proteinuria, unspecified; N25.81 Secondary hyperparathyroidism of renal origin; R73.01 Impaired fasting glucose; E55.9 Vitamin D deficiency, unspecified; E83.51 Hypocalcemia; E87.2 Acidosis
CPT/HCPCS: 36415; 80069

== ENCOUNTER → 2016-12-08 | Outpatient (CLI) | payer MEDICARE ==
[2016-12-08 08:47] LABS: BILIRUBIN,URINE NEGATIVE (NEGATIVE); KETONES,URINE NEGATIVE (NEGATIVE); LEUKOCYTE ESTERASE ,URINE 1+ (NEGATIVE); NITRITE,URINE NEGATIVE (NEGATIVE); PH,URINE 6 (5-9); PROTEIN,URINE NEGATIVE (NEGATIVE); UROBILINOGEN,URINE NORMAL (NORMAL)
[2016-12-08 08:57] LABS: MEAN PLATELET VOLUME 9.9 FL (7.4-10.4); RED BLOOD COUNT 4.24 10^6/uL (4.35-5.85); RED CELL DISTRIBUTION WIDTH 11.7 % (10.0-14.5); WHITE BLOOD COUNT 7.5 10^3/uL (4.3-11.0)
[2016-12-08 09:03] LABS: ALBUMIN 3.6 GM/DL (3.2-4.5); CALCIUM 8.8 MG/DL (8.5-10.1); CREATININE SERUM 1.92 MG/DL (0.60-1.30); MAGNESIUM 2.1 MG/DL (1.8-2.4); PHOSPHORUS 3.4 MG/DL (2.3-4.7); POTASSIUM 4.5 MMOL/L (3.6-5.0)
[2016-12-08 09:08] LABS: SQUAMOUS EPITHELIAL CELL,UR 0-2 /HPF; WBC,URINE RARE /HPF
[2016-12-10 07:12] LABS: PTH INTACT IRMA 122.2 pg/mL (10.0-65.0)
== END ==
LOC: LAB 08:25
PROVIDERS: ATTEND Nurse Practitioner
DX: I25.10 Atherosclerotic heart disease of native coronary artery without angina pectoris (principal); I13.0 Hypertensive heart and chronic kidney disease with heart failure and stage 1 through stage 4 chronic kidney disease, or unspecified chronic kidney disease; N18.4 Chronic kidney disease, stage 4 (severe); N40.0 Benign prostatic hyperplasia without lower urinary tract symptoms; E83.42 Hypomagnesemia; E46 Unspecified protein-calorie malnutrition; E87.1 Hypo-osmolality and hyponatremia; E78.4 Other hyperlipidemia; I50.9 Heart failure, unspecified; R80.9 Proteinuria, unspecified; R73.01 Impaired fasting glucose; E55.9 Vitamin D deficiency, unspecified; E83.51 Hypocalcemia; E87.2 Acidosis
CPT/HCPCS: 36415; 80061; 80069; 81000; 82306; 82570; 83735; 83970; 84156; 85027

== ENCOUNTER → 2017-06-12 | Outpatient (CLI) | payer MEDICARE ==
[~2017-06-12] MED LIST changes: +CLOP75TA69 PO
[2017-06-12 16:26] LABS: HEMOGLOBIN 13.7 G/DL (13.3-17.7); MEAN PLATELET VOLUME 9.5 FL (7.4-10.4); RED BLOOD COUNT 4.34 10^6/uL (4.35-5.85); RED CELL DISTRIBUTION WIDTH 11.9 % (10.0-14.5); WHITE BLOOD COUNT 7.2 10^3/uL (4.3-11.0)
[2017-06-12 16:36] LABS: BILIRUBIN,URINE NEGATIVE (NEGATIVE); CLARITY,URINE CLEAR; COLOR,URINE YELLOW; GLUCOSE, URINE (UA) NEGATIVE (NEGATIVE); KETONES,URINE NEGATIVE (NEGATIVE); LEUKOCYTE ESTERASE ,URINE NEGATIVE (NEGATIVE); NITRITE,URINE NEGATIVE (NEGATIVE); PH,URINE 7 (5-9); PROTEIN,URINE NEGATIVE (NEGATIVE); UROBILINOGEN,URINE NORMAL (NORMAL)
[2017-06-12 16:52] LABS: BACTERIA,URINE NEGATIVE /HPF; SQUAMOUS EPITHELIAL CELL,UR RARE /HPF; WBC,URINE RARE /HPF
[2017-06-12 16:56] LABS: URINE CREATININE FOR RATIO 26 MG/DL (30-125); URINE PROTEIN FOR RATIO ONLY < 6 MG/DL (6-12)
[2017-06-12 17:00] LABS: CALCIUM 9.1 MG/DL (8.5-10.1); CREATININE SERUM 1.94 MG/DL (0.60-1.30); PHOSPHORUS 3.4 MG/DL (2.3-4.7); POTASSIUM 4.6 MMOL/L (3.6-5.0)
== END ==
LOC: LAB 15:51
PROVIDERS: ATTEND Nurse Practitioner
DX: E55.9 Vitamin D deficiency, unspecified (principal); I25.10 Atherosclerotic heart disease of native coronary artery without angina pectoris; I13.0 Hypertensive heart and chronic kidney disease with heart failure and stage 1 through stage 4 chronic kidney disease, or unspecified chronic kidney disease; N18.4 Chronic kidney disease, stage 4 (severe); N40.0 Benign prostatic hyperplasia without lower urinary tract symptoms; E83.42 Hypomagnesemia; E46 Unspecified protein-calorie malnutrition; E87.1 Hypo-osmolality and hyponatremia; E78.4 Other hyperlipidemia; I50.9 Heart failure, unspecified; R80.9 Proteinuria, unspecified; R73.01 Impaired fasting glucose; E83.51 Hypocalcemia; E87.2 Acidosis
CPT/HCPCS: 36415; 80069; 81000; 82306; 82570; 83970; 84156; 85027

== ENCOUNTER 2017-06-13 16:08 | Emergency (ER) | payer MEDICARE ==
[~2017-06-13] VITALS: Ht 175.3 cm; Wt 72.6 kg
[~2017-06-13 16:08] MED LIST changes: -CLOP75TA69 PO
--- NOTE | 2017-06-13 16:26 | Diagnostic Imaging Report ---
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 There is some decreased density in the periventricular white matter consistent with chronic small vessel ischemic change. There are no masses or hemorrhages. There are no extra-axial fluid collections. Impression: Chronic ischemic leukoencephalopathy. No CT evidence of acute infarct. Dictated by: Dictated on workstation # [id number]
--- NOTE | 2017-06-13 16:30 | Diagnostic Imaging Report ---
EXAMINATION: CHEST 1 VIEW, AP/PA ONLY INDICATION: Dizziness. COMPARISON: CT chest without contrast 04/05/2009. FINDINGS: Normal heart size and pulmonary vascularity. No focal pulmonary opacity, pleural effusion or pneumothorax. Osseous structures are unremarkable. IMPRESSION: No acute cardiopulmonary findings. Dictated by: Dictated on workstation # [id number]
[2017-06-13 16:38] LABS: BASOPHILS # (AUTO) 0.1 10^3/uL (0.0-0.1); BASOPHILS % (AUTO) 1 % (0-10); EOSINOPHILS # (AUTO) 1.7 10^3/uL (0.0-0.3); EOSINOPHILS % (AUTO) 25 % (0-10); HEMATOCRIT 37 % (40-54); HEMOGLOBIN 12.8 G/DL (13.3-17.7); LYMPHOCYTES # (AUTO) 1.3 X 10^3 (1.0-4.0); LYMPHOCYTES % (AUTO) 20 % (12-44); MEAN CORPUSCULAR HEMOGLOBIN 32 PG (25-34); MEAN CORPUSCULAR HGB CONC 35 G/DL (32-36); MEAN CORPUSCULAR VOLUME 93 FL (80-99); MEAN PLATELET VOLUME 9.9 FL (7.4-10.4); MONOCYTES # (AUTO) 0.6 X 10^3 (0.0-1.0); MONOCYTES % (AUTO) 10 % (0-12); NEUTROPHILS % (AUTO) 45 % (42-75); PLATELET COUNT 200 10^3/uL (130-400); RED CELL DISTRIBUTION WIDTH 12.1 % (10.0-14.5); WHITE BLOOD COUNT 6.6 10^3/uL (4.3-11.0)
--- NOTE | 2017-06-13 16:49 | ED Neurological Problem ---
General Chief Complaint: Neuro-Stroke Like Symptoms Stated Complaint: DIZZY SPELLS Source: patient Exam Limitations: no limitations History of Present Illness Date Seen by Provider: Jun 13, 2017 Time Seen by Provider: 16:08 Initial Comments Patient presents to ER by private conveyance with a history of last known well time at 2:30, proximal an hour prior to arrival. He says he was feeling some dizziness like he was off balance and not being pulled any one direction or the other. He does have a history of chronic tinnitus. He says about 13 years ago he had a stroke that resulted in him having to undergo a lot of physical therapy and having some residual weakness in his upper extremities bilaterally. He says for the past month or so he's had some dizziness whenever he closes eyes in the shower feels like his about to fall but did not pass out. But he says in as he opens his eyes and his balance resumes normal. He describes today however having dizziness even with his eyes open feeling like he could fall. He did not have a fall today. He did not strike his head. He has not had any alcohol drugs today. He does not have a history of Mnire's or have any ear pressure, pain or discharge. He denies any fever, chills, shaking, cough, shortness of breath, chest pain, abdominal pain. He has no coronary history. He is on aspirin daily. He takes a rest of his medications appropriately and says he does not miss hardly any doses. He is not diabetic. Allergies and Home Medications Allergies Coded Allergies: No Known Drug Allergies (Unverified , 11/12/12) Home Medications Ascorbic Acid/Bioflavonoids 1 Each Tablet.sa, 1 EACH PO DAILY, (Reported) Aspirin 81 Mg Tab.chew, 81 MG PO DAILY, (Reported) Atenolol 50 Mg Tablet, 1 EACH PO DAILY, (Reported) B12/Levomefolate Calcium/B-6 1 Each Tablet, 1 EACH PO DAILY, (Reported) Ca Carbonate/Vitamin D3/Vit K 1 Each Tab.chew, 1 EACH PO DAILY, (Reported) Clonazepam 0.5 Mg Tab.rapdis, 0.5 MG PO DAILY, (Reported) Clopidogrel Bisulfate 75 Mg Tablet, 75 MG PO DAILY for 90 Days, #90 Ref 0 Prescribed by: DIMITRI SULLIVAN on 06/13/17 1615 Finasteride 1 Mg Tablet, 5 MG PO DAILY, (Reported) Flaxseed Oil 1,000 Mg Capsule, 1,000 MG PO DAILY, (Reported) Iron 18 Mg Tablet, 65 MG PO DAILY, (Reported) Magnesium Oxide 250 Mg Tablet, 250 MG PO DAILY, (Reported) Multivitamin 1 Each Tablet, 1 EACH PO DAILY, (Reported) [place] 3 Polyunsat Fatty Acids 1,000 Mg Cap, 1,000 MG PO DAILY, (Reported) Simethicone 125 Mg Capsule, 125 MG PO DAILY, (Reported) Ubidecarenone 100 Mg Capsule, 200 MG PO DAILY, (Reported) Vitamin A 8,000 Unit Capsule, 8,000 UNIT PO DAILY, (Reported) [Thyroxine] , 25 MCG AD DAILY, (Reported) Constitutional: No chills, No diaphoresis Eyes: Denies Blindness, Denies Blurred Vision, Denies Drainage, Denies Decreased Acuity Ears, Nose, Mouth, Throat: denies ear pain, denies ear discharge, denies nose pain Respiratory: No cough, No short of breath Cardiovascular: No chest pain, No edema, No palpitations, No syncope Gastrointestinal: No abdominal pain, No constipation, No diarrhea, No nausea Genitourinary: No discharge, No dysuria Musculoskeletal: No back pain, No joint pain Skin: No pruritus, No rash Psychiatric/Neurological: Denies Anxiety, Denies Depressed, Denies Cognitive Dysfunction, Denies Headache, Denies Numbness, Denies Tingling, Weakness ( bilateral upper extremities she's been dropping things for the past several months) Past Opuvbym-Bvlkox-Roesbc Hx Patient Social History Alcohol Use: Denies Use Recreational Drug Use: No Smoking Status: Former Smoker Type Used: Pipe Recent Foreign Travel: No Contact w/Someone Who Travel: No Recent Hopitalizations: No Seasonal Allergies Seasonal Allergies: No Surgeries Surgeries: Abdominal Respiratory History of Respiratory Disorde: No Cardiovascular History of Cardiac Disorders: Yes Cardiac Disorders: Hypertension Neurological History of Neurological Disord: Yes Neurological Disorders: Stroke Genitourinary History of Genitourinary Disor: No Gastrointestinal History of Gastrointestinal Di: Yes (hx colon cancer/colon resection) Musculoskeletal History of Musculoskeletal Dis: No (restless leg) Endocrine History of Endocrine Disorders: No Cancer History of Cancer: Yes Cancer: Skin, Colon Psychosocial History of Psychiatric Problem: No Integumentary History of Skin or Integumenta: Yes Blood Transfusions History of Blood Disorders: No Physical Exam Vital Signs Vital Signs - First Documented 06/13/17 16:25 Temp 97.6 Pulse 59 Resp 18 B/P (MAP) 158/88 (111) Pulse Ox 96 O2 Delivery Room Air Capillary Refill : General Appearance: WD/WN, no apparent distress HEENT: PERRL/EOMI, normal ENT inspection, TMs normal, pharynx normal Neck: non-tender, full range of motion, supple, normal inspection Respiratory: chest non-tender, lungs clear, normal breath sounds, no respiratory distress, no accessory muscle use Cardiovascular: normal peripheral pulses, regular rate, rhythm, no edema Gastrointestinal: normal bowel sounds, non tender, soft Extremities: non-tender, normal inspection, normal capillary refill Neurologic/Psychiatric: engineer steam II-XII nml as tested, no motor/sensory deficits, alert, normal mood/affect, oriented x 3 Crainal Nerves: normal hearing, normal speech, PERRL Coordination/Gait: normal finger to nose, normal gait, negative Romberg's sign Motor/Sensory: no motor deficit, no sensory deficit, no pronator drift Skin: normal color, warm/dry Stroke Onset of Symptoms Date of Onset of Symptoms: Jun 13, 2017 Time of Symptom Onset: 14:30 Onset of Symptoms: Yes Symptoms onset unknown: No NIH Stroke Scale Assessment Select: Initial Level of Consciousness: 0=Alert (0), Level of Consciousness- Questions: 0=Answers both month/age (0), LOC Commands: 0=Performs both tasks (0) , Visual Ramirez: 0=No visual loss (0), Facial Movement (Facial Paresis): 0= Normal symmetrical mnt (0), Motor Function-Arms Right: 0=No drift (0), Motor Function-Arms Left: 0=No drift (0), Motor Function-Legs Right: 0=No drift (0), Motor Function-Legs Left: 0=No drift (0), Limb Ataxia: 0=Absent (0), Sensory: 0= Normal:no loss (0), Best Language: 0=No aphasia (0), Dysarthria: 0=Normal (0), Extinction & Inattention: 0=No abnormality (0), Total: 0 IV - TPa Received IV - TPa Procedure Performed?: No Progress/Results/Core Measures Results/Orders Lab Results Laboratory Tests Test 06/13/17 16:28 28/18 16:29 Range/Units Glucometer 113 H 70-110 MG/DL White Blood Count 6.6 4.3-11.0 10^3/uL Red Blood Count 4.00 L 4.35-5.85 10^6/uL Hemoglobin 12.8 L 13.3-17.7 G/DL Hematocrit 37 L 40-54 % Mean Corpuscular Volume 93 80-99 FL Mean Corpuscular Hemoglobin 32 25-34 PG Mean Corpuscular Hemoglobin Concent 35 32-36 G/DL Red Cell Distribution Width 12.1 10.0-14.5 % Platelet Count 200 130-400 10^3/uL Mean Platelet Volume 9.9 7.4-10.4 FL Neutrophils (%) (Auto) 45 42-75 % Lymphocytes (%) (Auto) 20 12-44 % Monocytes (%) (Auto) 10 0-12 % Eosinophils (%) (Auto) 25 H 0-10 % Basophils (%) (Auto) 1 0-10 % Neutrophils # (Auto) 3.0 1.8-7.8 X 10^3 Lymphocytes # (Auto) 1.3 1.0-4.0 X 10^3 Monocytes # (Auto) 0.6 0.0-1.0 X 10^3 Eosinophils # (Auto) 1.7 H 0.0-0.3 10^3/uL Basophils # (Auto) 0.1 0.0-0.1 10^3/uL Neutrophils % (Manual) 47 % Lymphocytes % (Manual) 21 % Monocytes % (Manual) 10 % Eosinophils % (Manual) 20 % Basophils % (Manual) 1 % Band Neutrophils 1 % Blood Morphology Comment NORMAL Prothrombin Time 13.6 12.2-14.7 SEC INR Comment 1.0 0.8-1.4 Activated Partial Thromboplast Time 33 24-35 SEC D-Dimer 0.36 0.00-0.49 UG/ML Sodium Level 133 L 135-145 MMOL/L Potassium Level 4.4 3.6-5.0 MMOL/L Chloride Level 105 98-107 MMOL/L Carbon Dioxide Level 19 L 21-32 MMOL/L Anion Gap 9 5-14 MMOL/L Blood Urea Nitrogen 22 H 7-18 MG/DL Creatinine 1.84 H 0.60-1.30 MG/DL Estimat Glomerular Filtration Rate 36 BUN/Creatinine Ratio 12 Glucose Level 114 H 70-105 MG/DL Calcium Level 8.8 8.5-10.1 MG/DL Total Bilirubin 0.2 0.1-1.0 MG/DL Aspartate Amino Transf (AST/SGOT) 19 5-34 U/L Alanine Aminotransferase (ALT/SGPT) 11 0-55 U/L Alkaline Phosphatase 76 40-136 U/L Troponin I < 0.30 <0.30 NG/ML Total Protein 6.3 L 6.4-8.2 GM/DL Albumin 3.7 3.2-4.5 GM/DL My Orders Orders - DIMITRI SULLIVAN Cbc With Automated Diff (06/13/17 16:15) Protime With Inr (06/13/17 16:15) Partial Thromboplastin Time (06/13/17 16:15) Comprehensive Metabolic Panel (06/13/17 16:15) Fibrin Degradation Products (06/13/17 16:15) Troponin I (06/13/17 16:15) Chest 1 View, Ap/Pa Only (06/13/17 16:15) Ekg Tracing (06/13/17 16:15) Nothing By Mouth (06/13/17 Dinner) Accucheck Stat ONCE (06/13/17 16:15) Vital Signs - Stroke Q15M (06/13/17 16:15) Ct Head Wo-R/O Stroke (06/13/17 16:15) O2 (06/13/17 16:15) Intake & Output 06,14,22 (06/13/17 16:15) Monitor-Rhythm Ecg Trace Only (06/13/17 16:15) Dysphagia Screening Tool (06/13/17 16:15) Post Thrombolytic Adminstratio (06/13/17 16:15) Manual Differential (06/13/17 16:29) Piperacillin Sodium/Tazobactam (Zosyn Vi (06/13/17 17:00) Mra Head W/O Contrast (06/13/17 17:07) Mri Brain W/O Contrast (06/13/17 17:07) Mra Neck W/O Contrast (06/13/17 17:07) Vital Signs/I&O Vital Sign - Last 12Hours 06/13/17 16:25 Temp 97.6 Pulse 59 Resp 18 B/P (MAP) 158/88 (111) Pulse Ox 96 O2 Delivery Room Air Point of Care Testing Finger Stick Blood Glucose: 113 Progress Note : Time: 18:41 Progress Note Symptoms seem to been going on for the past month but are now worse even with the patient's eyes open. Concern for a peripheral origin of his off balance, vertigo. Just the same we will work him up and make sure we medically manage him while he is here. He is not having any blood pressure problems on the monitor. We'll give him his first dose of Plavix and give him a prescription sent to the pharmacy. Because of his creatinine I'm informed that we cannot use the contrast MRA but we can do MRA without contrast. We'll get the studies and see if there is anything actionable. ECG Initial ECG Impression Date: Jun 13, 2017 Initial ECG Impression Time: 16:44 Initial ECG Rate: 55 Initial ECG Rhythm: Normal Sinus Initial ECG Intervals: Normal Initial ECG Impression: Normal, Nonspecific Changes Initial ECG Comparisson: No Previous ECG Available Comment No T-wave elevation or depression. Diagnostic Imaging Diagonstic Imaging: Xray Plain Films/CT/US/NM/MRI: chest Comments NAME: SHANNAN [facility]ERSON [facility] REC#: [id number] PHYSICIAN: DIMITRI SULLIVAN MD CC: GALA KUMAR MD; DIMITRI SULLIVAN Page 1 of 1 RADIOLOGY REPORT [place]IA [place], [place] CC: GALA KUMAR MD; DIMITRI SULLIVAN Page 1 of 1 RADIOLOGY REPORT NAME: SHANNAN JEFFERSON [facility] REC#: [id number] PT STATUS: REG ER : 1935 PHYSICIAN: DIMITRI SULLIVAN MD ADMIT DATE: 06/13/17/ER Signed Date of Exam: 06/13/17 CHEST 1 VIEW, AP/PA ONLY EXAMINATION: CHEST 1 VIEW, AP/PA ONLY INDICATION: Dizziness. COMPARISON: CT chest without contrast 04/05/2009. FINDINGS: Normal heart size and pulmonary vascularity. No focal pulmonary opacity, pleural effusion or pneumothorax. Osseous structures are unremarkable. IMPRESSION: No acute cardiopulmonary findings. Dictated by: Dictated on workstation # [id number] Dict: 06/13/17 1626 Trans: 06/13/17 1637 Interpreted by: GALA KUMAR MD Electronically signed by: GALA KUMAR MD 06/13/171636 Reviewed: Reviewed by Me Diagonstic Imaging: CT Plain Films/CT/US/NM/MRI: head Comments Negative for intracranial hemorrhage, midline shift, mass effect, or tumor. 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 There is some decreased density in the periventricular white matter consistent with chronic small vessel ischemic change. There are no masses or hemorrhages. There are no extra-axial fluid collections. Impression: Chronic ischemic leukoencephalopathy. No CT evidence of acute infarct. Dictated by: Dictated on workstation # [id number] Dict: 06/13/17 1622 Trans: 06/13/17 162 Interpreted by: LU FREEMAN MD Electronically signed by: LU FREEMAN MD 06/13/17 162 Reviewed: Reviewed by Me Diagonstic Imaging: MRI (MRA head, brain, neck) Plain Films/CT/US/NM/MRI: head (neck) Comments VIA [facility]. [place], [place] NAME: LISHANNAN [facility] REC#: [id number] PT STATUS: REG ER : 1935 PHYSICIAN: DIMITRI SULLIVAN MD ADMIT DATE: 06/13/17/ER Draft Date of Exam:06/13/17 MRI BRAIN W/O CONTRAST PROCEDURE: MR imaging of the brain without contrast. TECHNIQUE: Multiplanar, multisequence MR imaging of the brain was performed without contrast. INDICATION: Disequilibrium. FINDINGS: Ventricles and sulci are diffusely prominent. There is moderate T2 prolongation seen within the deep white matter of both cerebral hemispheres with additional scattered areas of T2 signal in the subcortical white matter of both hemispheres. There is, however, no restricted diffusion to indicate an infarct. Visualized paranasal sinuses and the mastoid air cell regions are clear. There is no evidence of abnormality at the cerebellopontine angles or inner ear structures. There is no MRI evidence of hemorrhage. IMPRESSION: Nonspecific white matter changes are likely related to chronic microvascular ischemia; however, there is no MRI evidence of acute infarct or other acute intracranial abnormality. Dictated on workstation # [id number] Dict: 06/13/17 1859 Trans: 06/13/17 190 [facility] [id number] Interpreted by: OG RICHARDSON MD Electronically signed by: VIA [facility] [place], [place], [place] NAME: RADHASHANNAN [facility] REC#: [id number] PT STATUS: REG ER : 1935 PHYSICIAN: DIMITRI SULLIVAN MD ADMIT DATE: 06/13/17/ER Draft Date of Exam:06/13/17 MRA HEAD W/O CONTRAST PROCEDURE: MR angiography of the brain without the use of contrast. TECHNIQUE: 3D [id number]-[id number] non contrast enhanced MR angiography of the head was performed. A source data was reformatted into rotating MIP projections. INDICATION: FINDINGS: Visualized distal internal carotid and vertebral arteries are widely patent. The basilar artery is unremarkable. Anterior, middle and posterior cerebral arteries are patent although there does appear to be mild attenuation of distal left middle cerebral artery branches of uncertain significance. No aneurysm or vascular malformation is identified. IMPRESSION: Essentially unremarkable MRA of the brain. There is slight attenuation of distal left middle cerebral artery branches. This could be due to chronic disease although clinical correlation is recommended. Dictated on workstation # [id number] Dict: 06/13/171847 Trans: 06/13/171856 [id number] Interpreted by: OG RICHARDSON MD Electronically signed by: [facility] [place] [place] NAME: SHANNAN JEFFERSON [facility] REC#: [id number] PT STATUS: REG ER : 1935 PHYSICIAN: DIMITRI SULLIVAN MD ADMIT DATE: 06/13/17/ER Draft Date of Exam:06/13/17 MRA NECK W/O CONTRAST PROCEDURE: MR angiography neck without contrast. TECHNIQUE: Non contrast enhanced MR angiography of the neck was performed. Source data was reformatted into rotating MIP projections. INDICATION: Disequilibrium MR angiography of the neck reveals normal patency of the carotid and vertebral arteries, bilaterally. There is no evidence of occlusion or stenosis. No filling defect is identified. IMPRESSION: Unremarkable MRA of the neck. Dictated on workstation # [id number] Dict: 06/13/171855 Trans: 06/13/171899 [facility] [id number] Interpreted by: OG RICHARDSON MD Electronically signed by: Reviewed: Reviewed by Me Consults Consults : Consults Notes [facility] neurology Dr. Rambo Alvarez: Discussed case lab imaging and history and he agrees with not doing TPA at this time. We discussed possibility of some kind of a central or peripheral balance issue. He recommends that we can do a management of any of his risks factors or other PCP do that we should do that to include LDL, cholesterol, blood pressure etc. He recommends that we obtain either a CTA of his head and neck especially look at his posterior circulation or even better and MRA as well as an MRI that would be advisable however he does not need to be admitted to have this done and this could be done outpatient the next couple days but can't be done tonight. He also recommends adding Plavix to the aspirin for the next 3 months and then after that we can discontinue the Plavix and continue him on aspirin. Departure Impression Impression: Primary Impression: Vertigo Disposition: 01 HOME, SELF-CARE Condition: Stable Departure-Patient Inst. Referrals: PAIGE PERRY MD (PCP/Family) Primary Care Physician Patient Instructions: Vertigo (a Type of Dizziness) (DC) Add. Discharge Instructions: Please follow up with your primary care physician to review the workup is been done and talk about other peripheral causes for your vertigo/dizziness symptoms. If you have slurred speech, facial droop, weakness or other worrisome symptoms please return to the ER promptly. Please continue to take your aspirin and other medications as prescribed. In addition for the next 3 months you should take Plavix a more powerful antiplatelet medicine similar to aspirin one tablet daily. At the end of 3 months you'll stop the Plavix if you're not having any other issues but continue taking the aspirin. Similar to aspirin and Plavix as a blood thinner and will increase her risk of bleeds. If you begin to have dark tarry stools, chest pain, shortness of breath or other evidence of bleeding that will not hold on its own then you should return to the ER for evaluation. All discharge instructions reviewed with patient and/or family. Voiced understanding. Scripts Clopidogrel Bisulfate (Plavix) 75 Mg Tablet 75 MG PO DAILY for 90 Days, #90 TAB 0 Refills Prov: DIMITRI SULLIVAN 06/13/17 Copy Copies To 1: PAIGE PERRY MD, TITUS J Jun 13, 2017 16:49
[2017-06-13 16:51] LABS: PROTHROMBIN TIME PATIENT 13.6 SEC (12.2-14.7)
[2017-06-13 16:53] LABS: FIBRIN DEGRADATION PRODUCTS 0.36 UG/ML (0.00-0.49)
[2017-06-13 16:55] LABS: ALANINE AMINOTRANSFERASE 11 U/L (0-55); ALBUMIN 3.7 GM/DL (3.2-4.5); ALKALINE PHOSPHATASE 76 U/L (40-136); BILIRUBIN,TOTAL 0.2 MG/DL (0.1-1.0); BUN/CREATININE RATIO 12; CALCIUM 8.8 MG/DL (8.5-10.1); CARBON DIOXIDE 19 MMOL/L (21-32); CHLORIDE 105 MMOL/L (98-107); CREATININE SERUM 1.84 MG/DL (0.60-1.30); GFR ESTIMATED 36; GLUCOSE 114 MG/DL (70-105); POTASSIUM 4.4 MMOL/L (3.6-5.0); SODIUM 133 MMOL/L (135-145); TOTAL PROTEIN 6.3 GM/DL (6.4-8.2)
[2017-06-13 16:58] LABS: BAND NEUTROPHILS 1 %; BASOPHILS % (MANUAL) 1 %; EOSINOPHILS % (MANUAL) 20 %; LYMPHOCYTES % (MANUAL) 21 %; MONOCYTES % (MANUAL) 10 %; NEUTROPHILS % (MANUAL) 47 %; RBC MORPH NORMAL
[2017-06-13] MEDS ORDERED: PIPERACILLIN SODIUM/TAZOBACTAM 4.5 GM in NS (IVPB) 100 ML IV ONE (17:00)
[2017-06-13] MEDS ORDERED: CLOP75TA69 PO (18:46)
--- NOTE | 2017-06-13 18:58 | Diagnostic Imaging Report ---
PROCEDURE: MR angiography of the brain without the use of contrast. TECHNIQUE: 3D [id number]-[id number] non contrast enhanced MR angiography of the head was performed. A source data was reformatted into rotating MIP projections. INDICATION: FINDINGS: Visualized distal internal carotid and vertebral arteries are widely patent. The basilar artery is unremarkable. Anterior, middle and posterior cerebral arteries are patent although there does appear to be mild attenuation of distal left middle cerebral artery branches of uncertain significance. No aneurysm or vascular malformation is identified. IMPRESSION: Essentially unremarkable MRA of the brain. There is slight attenuation of distal left middle cerebral artery branches. This could be due to chronic disease although clinical correlation is recommended. Dictated by: Dictated on workstation # [id number]
--- NOTE | 2017-06-13 19:00 | Diagnostic Imaging Report ---
PROCEDURE: MR angiography neck without contrast. TECHNIQUE: Non contrast enhanced MR angiography of the neck was performed. Source data was reformatted into rotating MIP projections. INDICATION: Disequilibrium MR angiography of the neck reveals normal patency of the carotid and vertebral arteries, bilaterally. There is no evidence of occlusion or stenosis. No filling defect is identified. IMPRESSION: Unremarkable MRA of the neck. Dictated by: Dictated on workstation # [id number]
--- NOTE | 2017-06-13 19:05 | Diagnostic Imaging Report ---
PROCEDURE: MR imaging of the brain without contrast. TECHNIQUE: Multiplanar, multisequence MR imaging of the brain was performed without contrast. INDICATION: Disequilibrium. FINDINGS: Ventricles and sulci are diffusely prominent. There is moderate T2 prolongation seen within the deep white matter of both cerebral hemispheres with additional scattered areas of T2 signal in the subcortical white matter of both hemispheres. There is, however, no restricted diffusion to indicate an infarct. Visualized paranasal sinuses and the mastoid air cell regions are clear. There is no evidence of abnormality at the cerebellopontine angles or inner ear structures. There is no MRI evidence of hemorrhage. IMPRESSION: Nonspecific white matter changes are likely related to chronic microvascular ischemia; however, there is no MRI evidence of acute infarct or other acute intracranial abnormality. Dictated by: Dictated on workstation # [id number]
[2017-06-13] MEDS ORDERED: CLOPIDOGREL 75 MG (PLAVIX) TABLET PO ONE (19:45)
[2017-06-13 19:50] VITALS: BP 152/88
== END 2017-06-13 19:50 | disposition home or self-care (01) ==
LOC: EDUNIT# 16:08 → ER 16:10
DX: R42 Dizziness and giddiness (principal); I10 Essential (primary) hypertension; Z85.038 Personal history of other malignant neoplasm of large intestine; Z85.828 Personal history of other malignant neoplasm of skin; Z86.73 Personal history of transient ischemic attack (TIA), and cerebral infarction without residual deficits; Z79.52 Long term (current) use of systemic steroids; Z87.891 Personal history of nicotine dependence
CPT/HCPCS: 36415; 70450; 70544; 70547; 70551; 71045; 80053; 82962; 84484; 85007; 85025; 85027; 85379; 85610; 85730; 93005; 93041

== ENCOUNTER → 2018-02-11 | Outpatient (CLI) | payer MEDICARE ==
[~2018-02-11] MED LIST changes: +CLOP75TA69 PO
[2018-02-11 15:54] LABS: BASOPHILS # (AUTO) 0.1 10^3/uL (0.0-0.1); BASOPHILS % (AUTO) 1 % (0-10); EOSINOPHILS # (AUTO) 1.3 10^3/uL (0.0-0.3); EOSINOPHILS % (AUTO) 19 % (0-10); HEMATOCRIT 36 % (40-54); HEMOGLOBIN 12.1 G/DL (13.3-17.7); LYMPHOCYTES # (AUTO) 1.1 X 10^3 (1.0-4.0); LYMPHOCYTES % (AUTO) 17 % (12-44); MEAN CORPUSCULAR HEMOGLOBIN 31 PG (25-34); MEAN CORPUSCULAR HGB CONC 34 G/DL (32-36); MEAN CORPUSCULAR VOLUME 92 FL (80-99); MEAN PLATELET VOLUME 9.5 FL (7.4-10.4); MONOCYTES # (AUTO) 0.6 X 10^3 (0.0-1.0); MONOCYTES % (AUTO) 8 % (0-12); NEUTROPHILS # (AUTO) 3.8 X 10^3 (1.8-7.8); NEUTROPHILS % (AUTO) 56 % (42-75); PLATELET COUNT 219 10^3/uL (130-400); RED BLOOD COUNT 3.89 10^6/uL (4.35-5.85); RED CELL DISTRIBUTION WIDTH 12.3 % (10.0-14.5); WHITE BLOOD COUNT 6.8 10^3/uL (4.3-11.0)
[2018-02-11 16:05] LABS: BILIRUBIN,URINE NEGATIVE (NEGATIVE); CLARITY,URINE CLEAR; COLOR,URINE YELLOW; GLUCOSE, URINE (UA) NEGATIVE (NEGATIVE); KETONES,URINE NEGATIVE (NEGATIVE); LEUKOCYTE ESTERASE ,URINE 1+ (NEGATIVE); NITRITE,URINE NEGATIVE (NEGATIVE); PH,URINE 6 (5-9); PROTEIN,URINE NEGATIVE (NEGATIVE); UROBILINOGEN,URINE NORMAL (NORMAL)
[2018-02-11 16:17] LABS: ALBUMIN 3.9 GM/DL (3.2-4.5); CALCIUM 8.9 MG/DL (8.5-10.1); CREATININE SERUM 2.06 MG/DL (0.60-1.30); PHOSPHORUS 3.4 MG/DL (2.3-4.7); POTASSIUM 4.6 MMOL/L (3.6-5.0); URIC ACID 5.7 MG/DL (2.6-7.2)
[2018-02-11 16:41] LABS: BAND NEUTROPHILS 0 %; BASOPHILS % (MANUAL) 1 %; EOSINOPHILS % (MANUAL) 19 %; LYMPHOCYTES % (MANUAL) 16 %; MONOCYTES % (MANUAL) 5 %; NEUTROPHILS % (MANUAL) 59 %; RBC MORPH NORMAL
[2018-02-11 16:44] LABS: BACTERIA,URINE TRACE /HPF; SQUAMOUS EPITHELIAL CELL,UR 0-2 /HPF
== END ==
LOC: LAB 15:32
PROVIDERS: ATTEND Internal Medicine Nephrology
DX: N18.4 Chronic kidney disease, stage 4 (severe) (principal); N40.0 Benign prostatic hyperplasia without lower urinary tract symptoms; E83.42 Hypomagnesemia; E46 Unspecified protein-calorie malnutrition; E87.1 Hypo-osmolality and hyponatremia; E78.49 Other hyperlipidemia; I12.9 Hypertensive chronic kidney disease with stage 1 through stage 4 chronic kidney disease, or unspecified chronic kidney disease; I50.9 Heart failure, unspecified; I25.10 Atherosclerotic heart disease of native coronary artery without angina pectoris; N25.0 Renal osteodystrophy; R80.9 Proteinuria, unspecified; N25.81 Secondary hyperparathyroidism of renal origin; E55.9 Vitamin D deficiency, unspecified; E83.51 Hypocalcemia; E87.2 Acidosis; E11.29 Type 2 diabetes mellitus with other diabetic kidney complication; R82.90 Unspecified abnormal findings in urine
CPT/HCPCS: 36415; 80069; 81000; 82306; 82570; 83970; 84156; 84550; 85007; 85027; 87088

== ENCOUNTER 2018-03-17 10:15 | Outpatient (CLI) | payer MEDICARE | END 2018-03-17 11:01 | disposition home or self-care (01) | LOC: SLEEP 10:15 | PROVIDERS: ATTEND Nurse Practitioner Family | DX: G47.33 Obstructive sleep apnea (adult) (pediatric) (principal); G47.00 Insomnia, unspecified; G47.10 Hypersomnia, unspecified ==

== ENCOUNTER → 2018-07-28 | Outpatient (CLI) | payer MEDICARE | LOC: CARD 14:23 | PROVIDERS: ATTEND Internal Medicine Cardiovascular Disease | DX: R07.89 Other chest pain (principal); N18.3 Chronic kidney disease, stage 3 (moderate); E78.2 Mixed hyperlipidemia; R06.02 Shortness of breath; D64.9 Anemia, unspecified; I08.1 Rheumatic disorders of both mitral and tricuspid valves | CPT/HCPCS: 93306 ==

== ENCOUNTER → 2018-07-30 | Outpatient (CLI) | payer MEDICARE ==
[~2018-07-30] MED LIST changes: +CATHETER FLUSH 10 ML SYR IV PRN; +REGADENOSON 0.4 MG/5 ML SYR (LEXISCAN) IV ONE
[2018-07-30 13:06] VITALS: BP 142/75
[2018-07-30 13:09] VITALS: BP 142/76
[2018-07-30 13:16] VITALS: BP 153/93
[2018-07-30 13:17] VITALS: BP 138/69
--- NOTE | 2018-07-31 06:52 | STRESS TEST ---
DATE OF SERVICE: 07/30/2018 AN EXERCISE MYOVIEW STRESS TEST REPORT REFERRING PHYSICIAN: Sonal Pollard MD Baseline heart rate is 56. Baseline blood pressure 142/75. Baseline EKG sinus rhythm with no ischemic changes. In summary, the patient was scheduled for exercise stress test. He received 10.89 mCi of technetium-99 Myoview and the resting images were obtained. Then he started exercising on standard Darrel protocol, unable to exercise beyond 3 minutes on standard Darrel protocol. Test was terminated and converted to Lexiscan Myoview stress test. The patient received 0.4 mg of Lexiscan followed by 31.4 mCi of technetium-99 Myoview. Throughout the test, there were no EKG changes. The resting and stress images were reviewed and compared in the short axis, horizontal long axis, and vertical long axis views. Review of the images showed diaphragmatic attenuation with reversible ischemia involving the mid to apical inferior wall and inferolateral wall. SSS is 7, SDS 7, TID value 0.91. On the gated images, the left ventricle appeared to be normal size with normal contractility. Calculated ejection fraction 72%. CONCLUSION: 1. The patient was unable to exercise beyond 3 minutes on standard Darrel protocol. Test was terminated and converted to Lexiscan Myoview stress test. 2. The patient tolerated Lexiscan well. 3. Diaphragmatic attenuation affecting the quality of the images with questionable mild ischemia involving the mid to apical inferior wall and inferolateral wall. 4. Normal left ventricular size with normal contractility. Calculated ejection fraction 72%. Job ID: [id number] DocumentID: [id number] Dictated Date: 07/31/2018 06:24:08 [employer] Date: 07/31/2018 06:50:56 Dictated By: SURESH MCDANIEL MD
== END ==
LOC: CARD 11:10
PROVIDERS: ATTEND Internal Medicine Cardiovascular Disease
DX: R07.89 Other chest pain (principal); E78.2 Mixed hyperlipidemia; R06.02 Shortness of breath; N18.3 Chronic kidney disease, stage 3 (moderate); D64.9 Anemia, unspecified
CPT/HCPCS: 78452; 93017

== ENCOUNTER → 2018-08-15 | Outpatient (CLI) | payer MEDICARE ==
[~2018-08-15] MED LIST changes: -CATHETER FLUSH 10 ML SYR IV PRN; -REGADENOSON 0.4 MG/5 ML SYR (LEXISCAN) IV ONE
[2018-08-15 08:38] LABS: BASOPHILS # (AUTO) 0.1 10^3/uL (0.0-0.1); BASOPHILS % (AUTO) 1 % (0-10); EOSINOPHILS # (AUTO) 0.5 10^3/uL (0.0-0.3); EOSINOPHILS % (AUTO) 8 % (0-10); HEMATOCRIT 33 % (40-54); HEMOGLOBIN 10.4 G/DL (13.3-17.7); LYMPHOCYTES # (AUTO) 1.7 X 10^3 (1.0-4.0); LYMPHOCYTES % (AUTO) 27 % (12-44); MEAN CORPUSCULAR HEMOGLOBIN 30 PG (25-34); MEAN CORPUSCULAR HGB CONC 32 G/DL (32-36); MEAN CORPUSCULAR VOLUME 93 FL (80-99); MEAN PLATELET VOLUME 9.3 FL (7.4-10.4); MONOCYTES # (AUTO) 0.8 X 10^3 (0.0-1.0); MONOCYTES % (AUTO) 12 % (0-12); NEUTROPHILS # (AUTO) 3.3 X 10^3 (1.8-7.8); NEUTROPHILS % (AUTO) 52 % (42-75); PLATELET COUNT 245 10^3/uL (130-400); RED CELL DISTRIBUTION WIDTH 13.9 % (10.0-14.5); WHITE BLOOD COUNT 6.3 10^3/uL (4.3-11.0)
[2018-08-15 08:39] LABS: BILIRUBIN,URINE NEGATIVE (NEGATIVE); COLOR,URINE YELLOW; GLUCOSE, URINE (UA) NEGATIVE (NEGATIVE); KETONES,URINE NEGATIVE (NEGATIVE); LEUKOCYTE ESTERASE ,URINE NEGATIVE (NEGATIVE); NITRITE,URINE NEGATIVE (NEGATIVE); PH,URINE 7 (5-9); PROTEIN,URINE 2+ (NEGATIVE); UROBILINOGEN,URINE NORMAL (NORMAL)
[2018-08-15 08:54] LABS: ALBUMIN 3.7 GM/DL (3.2-4.5); CALCIUM 9.3 MG/DL (8.5-10.1); CREATININE SERUM 2.75 MG/DL (0.60-1.30); MAGNESIUM 2.2 MG/DL (1.8-2.4); PHOSPHORUS 3.4 MG/DL (2.3-4.7); POTASSIUM 4.2 MMOL/L (3.6-5.0); URIC ACID 6.7 MG/DL (2.6-7.2)
[2018-08-15 09:15] LABS: BACTERIA,URINE TRACE /HPF; CLARITY,URINE CLEAR; RBC,URINE RARE /HPF; SQUAMOUS EPITHELIAL CELL,UR 0-2 /HPF; WBC,URINE RARE /HPF
== END ==
LOC: LAB 08:15
PROVIDERS: ATTEND Nurse Practitioner
DX: I13.0 Hypertensive heart and chronic kidney disease with heart failure and stage 1 through stage 4 chronic kidney disease, or unspecified chronic kidney disease (principal); N18.4 Chronic kidney disease, stage 4 (severe); I50.9 Heart failure, unspecified; N40.0 Benign prostatic hyperplasia without lower urinary tract symptoms; E83.42 Hypomagnesemia; E46 Unspecified protein-calorie malnutrition; E87.1 Hypo-osmolality and hyponatremia; E78.49 Other hyperlipidemia; I25.10 Atherosclerotic heart disease of native coronary artery without angina pectoris; N25.0 Renal osteodystrophy; R80.9 Proteinuria, unspecified; N25.81 Secondary hyperparathyroidism of renal origin; E55.9 Vitamin D deficiency, unspecified; E83.51 Hypocalcemia; E87.2 Acidosis; E11.22 Type 2 diabetes mellitus with diabetic chronic kidney disease
CPT/HCPCS: 36415; 80061; 80069; 81000; 82306; 82570; 83735; 83970; 84156; 84550; 85025

== ENCOUNTER → 2018-09-01 | Outpatient (CLI) | payer MEDICARE | LOC: WOUNDCARE 13:40 | PROVIDERS: ATTEND Surgery | DX: L03.115 Cellulitis of right lower limb (principal); L03.116 Cellulitis of left lower limb; I89.0 Lymphedema, not elsewhere classified; I87.323 Chronic venous hypertension (idiopathic) with inflammation of bilateral lower extremity; I70.293 Other atherosclerosis of native arteries of extremities, bilateral legs | CPT/HCPCS: 99213 ==

== ENCOUNTER → 2018-09-08 | Outpatient (CLI) | payer MEDICARE | LOC: WOUNDCARE 14:59 | PROVIDERS: ATTEND Surgery | DX: L03.115 Cellulitis of right lower limb (principal); L03.116 Cellulitis of left lower limb; I89.0 Lymphedema, not elsewhere classified; I87.323 Chronic venous hypertension (idiopathic) with inflammation of bilateral lower extremity; I70.293 Other atherosclerosis of native arteries of extremities, bilateral legs | CPT/HCPCS: 99212 ==

== ENCOUNTER → 2018-09-09 | Outpatient (CLI) | payer MEDICARE ==
[2018-09-09 10:43] LABS: ALBUMIN 3.6 GM/DL (3.2-4.5); CALCIUM 9.1 MG/DL (8.5-10.1); CREATININE SERUM 2.73 MG/DL (0.60-1.30); PHOSPHORUS 4.3 MG/DL (2.3-4.7); POTASSIUM 4.4 MMOL/L (3.6-5.0); URIC ACID 7.2 MG/DL (2.6-7.2)
== END ==
LOC: LAB 10:07
PROVIDERS: ATTEND Nurse Practitioner
DX: I13.0 Hypertensive heart and chronic kidney disease with heart failure and stage 1 through stage 4 chronic kidney disease, or unspecified chronic kidney disease (principal); E11.22 Type 2 diabetes mellitus with diabetic chronic kidney disease; N18.3 Chronic kidney disease, stage 3 (moderate); I50.9 Heart failure, unspecified; N40.0 Benign prostatic hyperplasia without lower urinary tract symptoms; E83.42 Hypomagnesemia; E46 Unspecified protein-calorie malnutrition; E87.1 Hypo-osmolality and hyponatremia; E78.49 Other hyperlipidemia; I25.10 Atherosclerotic heart disease of native coronary artery without angina pectoris; N25.0 Renal osteodystrophy; R80.9 Proteinuria, unspecified; N25.81 Secondary hyperparathyroidism of renal origin; E55.9 Vitamin D deficiency, unspecified; E83.51 Hypocalcemia; E87.2 Acidosis
CPT/HCPCS: 36415; 80061; 80069; 84550

== ENCOUNTER → 2018-09-15 | Outpatient (CLI) | payer MEDICARE | LOC: WOUNDCARE 14:50 | PROVIDERS: ATTEND Surgery | DX: L03.115 Cellulitis of right lower limb (principal); L03.116 Cellulitis of left lower limb; I89.0 Lymphedema, not elsewhere classified; I87.323 Chronic venous hypertension (idiopathic) with inflammation of bilateral lower extremity; I70.293 Other atherosclerosis of native arteries of extremities, bilateral legs | CPT/HCPCS: 99213 ==

== ENCOUNTER → 2018-11-10 | Outpatient (CLI) | payer MEDICARE ==
[2018-11-10 14:23] LABS: HEMOGLOBIN 10.8 G/DL (13.3-17.7); MEAN PLATELET VOLUME 9.6 FL (7.4-10.4); RED CELL DISTRIBUTION WIDTH 14.1 % (10.0-14.5); WHITE BLOOD COUNT 6.9 10^3/uL (4.3-11.0)
[2018-11-10 14:33] LABS: BILIRUBIN,URINE NEGATIVE (NEGATIVE); CLARITY,URINE CLEAR; COLOR,URINE YELLOW; GLUCOSE, URINE (UA) NEGATIVE (NEGATIVE); KETONES,URINE NEGATIVE (NEGATIVE); LEUKOCYTE ESTERASE ,URINE NEGATIVE (NEGATIVE); NITRITE,URINE NEGATIVE (NEGATIVE); PH,URINE 6 (5-9); PROTEIN,URINE 1+ (NEGATIVE); UROBILINOGEN,URINE NORMAL (NORMAL)
[2018-11-10 14:43] LABS: ALBUMIN 3.5 GM/DL (3.2-4.5); CALCIUM 8.9 MG/DL (8.5-10.1); CREATININE SERUM 2.61 MG/DL (0.60-1.30); PHOSPHORUS 3.7 MG/DL (2.3-4.7); POTASSIUM 4.3 MMOL/L (3.6-5.0); URIC ACID 7.3 MG/DL (2.6-7.2)
[2018-11-10 15:03] LABS: BACTERIA,URINE NEGATIVE /HPF; RBC,URINE RARE /HPF
== END ==
LOC: LAB 14:05
PROVIDERS: ATTEND Nurse Practitioner
DX: I12.9 Hypertensive chronic kidney disease with stage 1 through stage 4 chronic kidney disease, or unspecified chronic kidney disease (principal); E11.22 Type 2 diabetes mellitus with diabetic chronic kidney disease; N18.4 Chronic kidney disease, stage 4 (severe); E46 Unspecified protein-calorie malnutrition; E87.1 Hypo-osmolality and hyponatremia; E78.5 Hyperlipidemia, unspecified; I50.9 Heart failure, unspecified; I25.10 Atherosclerotic heart disease of native coronary artery without angina pectoris; N25.0 Renal osteodystrophy; N25.81 Secondary hyperparathyroidism of renal origin; E55.9 Vitamin D deficiency, unspecified; E87.2 Acidosis; E11.29 Type 2 diabetes mellitus with other diabetic kidney complication
CPT/HCPCS: 36415; 80069; 81000; 82306; 82570; 83970; 84156; 84550; 85027

== ENCOUNTER → 2018-12-04 | Outpatient (CLI) | payer MEDICARE ==
--- NOTE | 2018-12-04 15:12 | Diagnostic Imaging Report ---
INDICATION: Chronic back pain. TIME OF EXAM: 2:28 PM FINDINGS: Three views of the lumbar spine were obtained. Curvature and alignment is normal. Vertebral body heights are maintained. No acute compression fracture is seen. There is degenerative disc disease at the L4-5 and L5-S1 levels with disc space narrowing and marginal spurring. There is vacuum disc at L4-5. Lower lumbar facet arthropathy is seen. IMPRESSION: Lower lumbar spondylosis. No acute bony abnormality is detected. Dictated by: Dictated on workstation # [id number]
== END ==
LOC: RAD 14:04
PROVIDERS: ATTEND Nurse Practitioner Family
DX: M47.816 Spondylosis without myelopathy or radiculopathy, lumbar region (principal)
CPT/HCPCS: 72100

== ENCOUNTER → 2019-03-09 | Outpatient (CLI) | payer MEDICARE ==
[2019-03-09 11:03] LABS: HEMOGLOBIN 10.4 G/DL (13.3-17.7); MEAN PLATELET VOLUME 9.4 FL (7.4-10.4); RED CELL DISTRIBUTION WIDTH 12.5 % (10.0-14.5); WHITE BLOOD COUNT 6.2 10^3/uL (4.3-11.0)
[2019-03-09 11:07] LABS: BILIRUBIN,URINE NEGATIVE (NEGATIVE); CLARITY,URINE CLEAR; COLOR,URINE YELLOW; GLUCOSE, URINE (UA) NEGATIVE (NEGATIVE); KETONES,URINE NEGATIVE (NEGATIVE); LEUKOCYTE ESTERASE ,URINE NEGATIVE (NEGATIVE); NITRITE,URINE NEGATIVE (NEGATIVE); PH,URINE 8 (5-9); PROTEIN,URINE 2+ (NEGATIVE)
[2019-03-09 11:27] LABS: BACTERIA,URINE NEGATIVE /HPF
[2019-03-09 11:37] LABS: ALBUMIN 3.7 GM/DL (3.2-4.5); CREATININE SERUM 2.91 MG/DL (0.60-1.30); PHOSPHORUS 2.7 MG/DL (2.3-4.7); POTASSIUM 4.2 MMOL/L (3.6-5.0); URIC ACID 6.4 MG/DL (2.6-7.2)
== END ==
LOC: LAB 10:31
PROVIDERS: ATTEND Nurse Practitioner
DX: N40.1 Benign prostatic hyperplasia with lower urinary tract symptoms (principal); E83.42 Hypomagnesemia; E46 Unspecified protein-calorie malnutrition; E87.1 Hypo-osmolality and hyponatremia; E78.49 Other hyperlipidemia; I13.0 Hypertensive heart and chronic kidney disease with heart failure and stage 1 through stage 4 chronic kidney disease, or unspecified chronic kidney disease; N18.4 Chronic kidney disease, stage 4 (severe); I50.9 Heart failure, unspecified; I25.10 Atherosclerotic heart disease of native coronary artery without angina pectoris; N25.0 Renal osteodystrophy; N25.81 Secondary hyperparathyroidism of renal origin; E55.9 Vitamin D deficiency, unspecified; E83.51 Hypocalcemia; E87.2 Acidosis; E11.29 Type 2 diabetes mellitus with other diabetic kidney complication; E11.22 Type 2 diabetes mellitus with diabetic chronic kidney disease
CPT/HCPCS: 36415; 80069; 81000; 82306; 82570; 82728; 83540; 83970; 84156; 84550; 85027

== ENCOUNTER → 2019-06-18 | Outpatient (CLI) | payer MEDICARE ==
--- NOTE | 2019-06-18 14:40 | Diagnostic Imaging Report ---
PROCEDURE: CT neck soft tissue without contrast. TECHNIQUE: Multiple contiguous axial images were obtained through the neck without the use of intravenous contrast. Auto Exposure Controls were utilized during the CT exam to meet ALARA standards for radiation dose reduction. All CT scans use one or more of the following dose optimizing techniques: automated exposure control, MA and/or KvP adjustment based on patient size and exam type or iterative reconstruction. INDICATION: Neck swelling. COMPARISON: None available. FINDINGS: There is no lymphadenopathy or soft tissue mass within the neck. The bilateral parotid and submandibular glands are normal in appearance. No features of sialoadenitis. Thyroid has a few tiny subcentimeter cystic foci present which are no clinical significance at this patient's age. The nasopharynx, oropharynx and hypopharynx are normal in appearance. No abnormality of larynx is appreciated. No prevertebral soft tissue swelling. No retropharyngeal fluid collection. Parapharyngeal fat planes are normal. Mild degenerative changes in the cervical spine. However, there are no areas of high-grade spinal stenosis. Lung apices are clear on both sides. Dental amalgam is present. However, no acute abnormality in the mandibles appreciated. IMPRESSION: 1. No neck mass or lymphadenopathy. 2. Airways are widely patent. 3. No inflammatory changes associated with the submandibular or parotid glands. Dictated by: Dictated on workstation # [id number]
== END ==
LOC: RAD 14:18
PROVIDERS: ATTEND Family Medicine
DX: R22.1 Localized swelling, mass and lump, neck (principal)
CPT/HCPCS: 70490

== ENCOUNTER 2019-06-23 14:34 | Outpatient (RCR) | payer MEDICARE | END 2019-09-21 | disposition home or self-care (01) | PROVIDERS: ATTEND Family Medicine | DX: I89.0 Lymphedema, not elsewhere classified (principal); M54.2 Cervicalgia ==

== ENCOUNTER 2019-06-25 18:55 | Emergency (ER) | payer MEDICARE ==
[~2019-06-25] VITALS: Ht 172 cm; Wt 72.6 kg
--- NOTE | 2019-06-25 20:42 | ED General ---
General Chief Complaint: Trauma-Non Activation Stated Complaint: FELL/RIB PAIN Nursing Triage Note: Pt to FT1 via WC with c/o left rib pain after falling backwards in kitchen this evening. Pt states he takes ASA daily. Pt denies any LOC or hitting head. Nursing Sepsis Screen: No Definite Risk Source of Information: Patient Exam Limitations: No Limitations History of Present Illness Date Seen by Provider: Jun 25, 2019 Time Seen by Provider: 20:41 Initial Comments ER with left lateral rib pain after fall earlier today, did not hit his head no loss of consciousness is on oral anticoagulation. Pain is worse with movement. Timing/Duration: 4-6 Hours Severity: Moderate Associated Systoms: Denies Symptoms Allergies and Home Medications Allergies Coded Allergies: No Known Drug Allergies (Unverified , 11/12/12) Home Medications Ascorbic Acid/Bioflavonoids 1 Each Tablet.sa, 1 EACH PO DAILY, (Reported) Aspirin 81 Mg Tab.chew, 81 MG PO DAILY, (Reported) Atenolol 50 Mg Tablet, 1 EACH PO DAILY, (Reported) B12/Levomefolate Calcium/B-6 1 Each Tablet, 1 EACH PO DAILY, (Reported) Ca Carbonate/Vitamin D3/Vit K 1 Each Tab.chew, 1 EACH PO DAILY, (Reported) Clonazepam 0.5 Mg Tab.rapdis, 0.5 MG PO DAILY, (Reported) Clopidogrel Bisulfate 75 Mg Tablet, 75 MG PO DAILY Prescribed by: DIMITRI SULLIVAN on 06/13/171845 Finasteride 1 Mg Tablet, 5 MG PO DAILY, (Reported) Flaxseed Oil 1,000 Mg Capsule, 1,000 MG PO DAILY, (Reported) Iron 18 Mg Tablet, 65 MG PO DAILY, (Reported) Magnesium Oxide 250 Mg Tablet, 250 MG PO DAILY, (Reported) Multivitamin 1 Each Tablet, 1 EACH PO DAILY, (Reported) [place] 3 Polyunsat Fatty Acids 1,000 Mg Cap, 1,000 MG PO DAILY, (Reported) Simethicone 125 Mg Capsule, 125 MG PO DAILY, (Reported) Ubidecarenone 100 Mg Capsule, 200 MG PO DAILY, (Reported) Vitamin A 8,000 Unit Capsule, 8,000 UNIT PO DAILY, (Reported) [Thyroxine] , 25 MCG AD DAILY, (Reported) Patient Home Medication List Home Medication List Reviewed: Yes Review of Systems Review of Systems Constitutional: see HPI EENTM: see HPI Respiratory: no symptoms reported Cardiovascular: no symptoms reported Genitourinary: no symptoms reported Musculoskeletal: see HPI Skin: no symptoms reported Psychiatric/Neurological: No Symptoms Reported Hematologic/Lymphatic: No Symptoms Reported Past Ieryxma-Sutexs-Teydfr Hx Patient Social History Type Used: Pipe Recent Foreign Travel: No Contact w/Someone Who Travel: No Recent Infectious Disease Expo: No Recent Hopitalizations: No Physical Abuse: No Sexual Abuse: No Mistreated: No Fear: No Seasonal Allergies Seasonal Allergies: No Past Medical History Abdominal Respiratory: No Cardiac: Yes Hypertension Neurological: Yes Stroke Genitourinary: No Gastrointestinal: Yes (hx colon cancer/colon resection) Musculoskeletal: No (restless leg) Endocrine: No Cancer: Yes Skin, Colon Psychosocial: No Integumentary: Yes Blood Disorders: No Physical Exam Vital Signs Vital Signs - First Documented 06/25/19 19:58 Temp 36.9 Pulse 69 Resp 20 B/P (MAP) 119/63 (81) Pulse Ox 97 O2 Delivery Room Air Capillary Refill : Less Than 3 Seconds Height, Weight, BMI Height: 5'9.00" Weight: 160lbs. oz. 72.085476xm; 24.00 BMI Method:Stated General Appearance: No Apparent Distress, WD/WN Eyes: Bilateral Eye Normal Inspection, Bilateral Eye PERRL, Bilateral Eye EOMI HEENT: PERRL/EOMI, TMs Normal Respiratory: No Accessory Muscle Use, No Respiratory Distress Cardiovascular: Regular Rate, Rhythm, Normal Peripheral Pulses Gastrointestinal: Normal Bowel Sounds, Non Tender, Soft Extremity: Normal Capillary Refill, Normal Inspection Neurologic/Psychiatric: Alert, Oriented x3 Comments Left lateral lower ribs tender to palpation but without ecchymosis or erythema. Progress/Results/Core Measures Suspected Sepsis Recent Fever Within 48 Hours: No Infection Criteria Present: None New/Unexplained Altered Menta: No Sepsis Screen: No Definite Risk SIRS Temperature: Pulse: 69 Respiratory Rate: 20 Blood Pressure 119 /63 Mean: 81 Results/Orders My Orders Orders - HASEEB SANTOS APRN Ct Abdomen/Pelvis Wo (06/25/19 20:39) Vital Signs/I&O 06/25/19 19:58 Temp 36.9 Pulse 69 Resp 20 B/P (MAP) 119/63 (81) Pulse Ox 97 O2 Delivery Room Air Capillary Refill : Less Than 3 Seconds Blood Pressure Mean: 81 Departure Communication (Admissions) NAME: SYMONE HERMOSILLO [facility] REC#: [id number] PT STATUS: REG ER : [birth year]24/2000 PHYSICIAN: HASEEB SANTOS APRN ADMIT DATE: 06/25/19/ER Draft Date of Exam:06/25/19 HAND, LEFT, 3 VIEWS INDICATION: Left hand pain post injury. AP, oblique, and lateral views of the left hand are obtained. No definite fracture or acute bony abnormality is seen. There is a linear lucency in the fifth proximal phalanx which may be a nutrient channel, nondisplaced fracture is difficult to exclude. Correlate clinically for point tenderness in this area. Remaining bony structures are unremarkable. IMPRESSION: There is a linear lucency in the fifth proximal phalanx which may be a nutrient channel versus nondisplaced fracture. Correlate for point tenderness in this area. Otherwise negative study. Dictated on workstation # [id number] Dict: 06/25/19 1759 Trans: 06/25/19 1802 [facility] [id number] Interpreted by: JUANI FIELD MD Electronically signed by: Impression Primary Impression: Rib pain on left side Disposition: 01 HOME, SELF-CARE Condition: Stable Departure-Patient Inst. Decision time for Depature: 21:28 Referrals: PAIGE PERRY MD (PCP) Primary Care Physician Patient Instructions: Bruised Rib Add. Discharge Instructions: 1. Return to ER for any concerns 2. Follow-up with your doctor next week 3. All discharge instructions reviewed with patient and/or family. Voiced understanding. HASEEB SANTOS APRN Jun 25, 2019 20:42
--- NOTE | 2019-06-25 21:26 | Diagnostic Imaging Report ---
INDICATION: Fall with abdominal pain. TECHNIQUE: Multiple contiguous axial images were obtained through the abdomen and pelvis without the use of intravenous contrast. Auto Exposure Controls were utilized during the CT exam to meet ALARA standards for radiation dose reduction. COMPARISON: 04/05/2009. FINDINGS: The visualized portions of the lung bases are clear. There are no pleural fluid collections. There is no free intraperitoneal air. There are diffuse degenerative findings in the lumbar spine. There is a left 11th rib fracture which appears old. The liver shows no focal lesion without contrast. Gallbladder appears normal. Spleen appears unremarkable. The adrenal glands and pancreas appear normal. The kidneys are partially atrophic on both sides with a small exophytic density in the right kidney with Hounsfield units compatible with a small cyst. There is no retroperitoneal mass or adenopathy. There is no ascites or abnormal fluid present. There is a small periumbilical hernia containing fat. Visualized bowel loops show no sign of obstruction. There is prostatic enlargement. There is no pelvic free fluid. There is prominent stool throughout the colon. IMPRESSION: Partially atrophic kidneys with small cyst in right kidney. No abdominal mass or abscess. There is no sign of bowel structure. There is prominent stool in the colon. There is a fat-containing small periumbilical hernia. There is prostatic enlargement. There is an old left 11th rib fracture. Dictated by: Dictated on workstation # [id number]
[2019-06-25 21:44] VITALS: BP 119/63
[2019-06-25] MEDS ORDERED: ACETAMINOPHEN 500 MG TAB (TYLENOL) PO ONE (21:45)
== END 2019-06-25 21:42 | disposition home or self-care (01) ==
LOC: EDUNIT# 18:55 → ER 18:56
DX: R07.81 Pleurodynia (principal); I10 Essential (primary) hypertension; Z85.828 Personal history of other malignant neoplasm of skin; Z85.038 Personal history of other malignant neoplasm of large intestine; Z86.73 Personal history of transient ischemic attack (TIA), and cerebral infarction without residual deficits; Z79.82 Long term (current) use of aspirin; Z79.02 Long term (current) use of antithrombotics/antiplatelets; W18.39XA Other fall on same level, initial encounter; Y92.000 Kitchen of unspecified non-institutional (private) residence as the place of occurrence of the external cause
CPT/HCPCS: 74176

== ENCOUNTER 2019-06-29 19:03 | Emergency (ER) | payer MEDICARE ==
[~2019-06-29] VITALS: Ht 175.3 cm; Wt 70.5 kg
--- NOTE | 2019-06-29 19:40 | NUR ---
left leg elevated on 2 pillows.
[2019-06-29] MEDS ORDERED: NS IV 1000 ML 1,000 ML IV SCH ×2 (19:59→21:12)
[2019-06-29] MEDS ORDERED: PHARMACY TO DOSE IV ONE (20:00)
[2019-06-29] MEDS ORDERED: CEFEPIME INJECTION 1,000 MG in WATER (STERILE) FOR INJECTION 10 ML IV ONE (20:00)
[2019-06-29] MEDS ORDERED: VANCOMYCIN 1000 MG/VIAL ONE ×2 (20:01→20:15)
[2019-06-29] MEDS ORDERED: NS (IVPB) 250 ML ONE ×2 (20:01→20:15)
--- NOTE | 2019-06-29 20:09 | ED General ---
General Chief Complaint: Skin/Wound Problems Stated Complaint: L FOOT PAIN/SWELLING Nursing Triage Note: Pt to triage by wheelchair with complaint of left lower extremity redness and swelling. is on second round of doxycycline for the extremity. was seen here a few days ago for a fall, but forgot to mention his foot issue. Nursing Sepsis Screen: No Definite Risk Source of Information: Patient, Other (neighbor) Exam Limitations: No Limitations History of Present Illness Date Seen by Provider: Jun 29, 2019 Time Seen by Provider: 19:44 Initial Comments The patient resents to ER by private conveyance with his neighbor and chief complaint for the past several days she's having increasing redness swelling and pain in his left lower extremity. He has chronic edema and was told by the underwater roboticist that he would need a stent in his leg however because of his chronic kidney disease his crematory operator recommended against it and so he elected not to do that. He has feeling in his leg and has distracting pain that is progressively worsening 8 out of 10. He had a fall a couple days ago and came to the ER and they discovered a left-sided rib fracture. He says this hurts worse. Is not having productive cough fevers chills or shortness of air. He is on Plavix. He is not diabetic. He uses Tylenol with minimal relief of pain control. He started to 2 week course of doxycycline at the beginning of June and went back to Dr. Pollard, primary care about a week ago and had another prescription for doxycycline started. He has 3 days left on his prescription. He has poor balance and frequent falls which have gotten worse in the past few days. He does take Lasix. Echocardiogram July [address] Bee demonstrates focal basal hypertrophy with an EF of 55-65% and grade 2 diastolic dysfunction. Allergies and Home Medications Allergies Coded Allergies: No Known Drug Allergies (Unverified , 11/12/12) Home Medications Ascorbic Acid/Bioflavonoids 1 Each Tablet.sa, 1 EACH PO DAILY, (Reported) Aspirin 81 Mg Tab.chew, 81 MG PO DAILY, (Reported) Atenolol 50 Mg Tablet, 1 EACH PO DAILY, (Reported) B12/Levomefolate Calcium/B-6 1 Each Tablet, 1 EACH PO DAILY, (Reported) Ca Carbonate/Vitamin D3/Vit K 1 Each Tab.chew, 1 EACH PO DAILY, (Reported) Clonazepam 0.5 Mg Tab.rapdis, 0.5 MG PO DAILY, (Reported) Clopidogrel Bisulfate 75 Mg Tablet, 75 MG PO DAILY Prescribed by: DIMITRI SULLIVAN on 06/13/171845 Finasteride 1 Mg Tablet, 5 MG PO DAILY, (Reported) Flaxseed Oil 1,000 Mg Capsule, 1,000 MG PO DAILY, (Reported) Iron 18 Mg Tablet, 65 MG PO DAILY, (Reported) Magnesium Oxide 250 Mg Tablet, 250 MG PO DAILY, (Reported) Multivitamin 1 Each Tablet, 1 EACH PO DAILY, (Reported) [place] 3 Polyunsat Fatty Acids 1,000 Mg Cap, 1,000 MG PO DAILY, (Reported) Simethicone 125 Mg Capsule, 125 MG PO DAILY, (Reported) Ubidecarenone 100 Mg Capsule, 200 MG PO DAILY, (Reported) Vitamin A 8,000 Unit Capsule, 8,000 UNIT PO DAILY, (Reported) [Thyroxine] , 25 MCG AD DAILY, (Reported) Patient Home Medication List Home Medication List Reviewed: Yes Review of Systems Review of Systems Constitutional: No chills; dizziness; No fever; malaise EENTM: No ear discharge, No ear pain Respiratory: No cough, No hemoptysis Cardiovascular: No chest pain, No palpitations Gastrointestinal: No abdominal pain, No constipation, No diarrhea Genitourinary: No discharge, No dysuria Musculoskeletal: No back pain, No joint pain Skin: see HPI, change in color; No dryness, No rash Psychiatric/Neurological: Denies Headache, Denies Numbness All Other Systems Reviewed Negative Unless Noted: Yes Past Idkcqga-Gwuvat-Qhrkei Hx Patient Social History Alcohol Use: Denies Use Recreational Drug Use: No Smoking Status: Current Everyday Smoker Type Used: Pipe Recent Foreign Travel: No Contact w/Someone Who Travel: No Recent Infectious Disease Expo: No Recent Hopitalizations: No Immunizations Up To Date Tetanus Booster (TDap): Unknown PED Vaccines UTD: Yes Seasonal Allergies Seasonal Allergies: No Past Medical History Abdominal Respiratory: No Cardiac: Yes Hypertension Neurological: Yes Stroke Genitourinary: No Gastrointestinal: Yes (hx colon cancer/colon resection) Musculoskeletal: No (restless leg) Endocrine: No Cancer: Yes Skin, Colon Psychosocial: No Integumentary: Yes Blood Disorders: No Physical Exam-Suspected Sepsis Physical Exam Vital Signs Vital Signs - First Documented 06/29/19 19:19 Temp 36.4 Pulse 63 Resp 20 B/P (MAP) 96/58 (71) Pulse Ox 99 O2 Delivery Room Air Capillary Refill : Less Than 3 Seconds 2 Blood Pressure Mean: 71 Height, Weight, BMI Height: 5'9.00" Weight: 160lbs. oz. 72.005360ak; 22.00 BMI Method:Stated General Appearance: Chronically ill, Moderate Distress Eyes: Bilateral Eye Normal Inspection, Bilateral Eye PERRL, Bilateral Eye EOMI HEENT: PERRL/EOMI, Pharynx Normal; No Moist Mucous Membranes Neck: Full Range of Motion, Normal Inspection Respiratory: Lungs Clear, Normal Breath Sounds, No Accessory Muscle Use, No Respiratory Distress Cardiovascular: Regular Rate, Rhythm, No Edema, Normal Peripheral Pulses Gastrointestinal: Normal Bowel Sounds, Non Tender, Soft Extremity: Normal Capillary Refill, Other (bilateral lower extremities with chronic lymphedema. Left lower extremity is warm, erythematous, cellulitic with some transudative mild weeping. 2+ pitting edema in the foot. Pulses palpable over the dorsal pedal) Neurologic/Psychiatric: Alert, Oriented x3 Reflexes: 1+ Ankle (R), 1+ Ankle (L) Skin: other (War) Focused Exam Lactate Level 06/29/19 19:44: Lactic Acid Level 0.62 Lactic Acid Level Laboratory Tests Test 06/29/19 19:44 Lactic Acid Level 0.62 MMOL/L (0.50-2.00) Procedures/Interventions Lumen: triple Central Line Procedure: betadine prep (chlorhexidine prep), sterile drapes applied, sterile dressing applied Position: internal jugular (R) Anesthesia: Lidocaine Volume Anesthetic (ccs): 3 Complications: none Post Position: sutured, good blood return, position confirmed w/ CXR Patient was explained the risks, benefits and alternatives and he agreed to the seizure as well as signed a consent. Right patient was positioned appropriately and the right IJ was plump and easily accessible under ultrasound guidance. We thoroughly clean the site using the chlorhexidine prep and then made access using the provided needle from the kit. Watch the tip of the needle as it entered the skin and went down into the right IJ. Good return of blood. A guidewire was easily passed on first attempt with no ectopy noted on the monitor. We then made a small 1-2 mm incision at the base of the needle and removed the needle. The dilator was threaded over the guidewire and removed. The central lumen of the triple lumen 16 cm central catheter was placed at about 14 cm. The guidewire was removed and the central catheter was sutured in place in 3 different places. Within placed a sterile dressing with antibiotic patch. The patient tolerated procedure well. Progress/Results/Core Measures Suspected Sepsis Recent Fever Within 48 Hours: No Infection Criteria Present: None New/Unexplained Altered Menta: No Sepsis Screen: No Definite Risk SIRS Temperature: Pulse: 63 Respiratory Rate: 20 Laboratory Tests 06/29/19 19:44: White Blood Count 6.4 Blood Pressure 96 /58 Mean: 71 06/29/19 19:44: Lactic Acid Level 0.62 Laboratory Tests 06/29/19 19:44: Creatinine 4.33H, INR Comment 1.1, Platelet Count 251, Total Bilirubin 0.4 Results/Orders Lab Results Laboratory Tests Test 06/29/19 19:44 Range/Units White Blood Count 6.4 4.3-11.0 10^3/uL Red Blood Count 3.28 L 4.35-5.85 10^6/uL Hemoglobin 9.8 L 13.3-17.7 G/DL Hematocrit 31 L 40-54 % Mean Corpuscular Volume 94 80-99 FL Mean Corpuscular Hemoglobin 30 25-34 PG Mean Corpuscular Hemoglobin Concent 32 32-36 G/DL Red Cell Distribution Width 13.3 10.0-14.5 % Platelet Count 251 130-400 10^3/uL Mean Platelet Volume 9.4 7.4-10.4 FL Neutrophils (%) (Auto) 69 42-75 % Lymphocytes (%) (Auto) 17 12-44 % Monocytes (%) (Auto) 13 H 0-12 % Eosinophils (%) (Auto) 1 0-10 % Basophils (%) (Auto) 1 0-10 % Neutrophils # (Auto) 4.4 1.8-7.8 X 10^3 Lymphocytes # (Auto) 1.1 1.0-4.0 X 10^3 Monocytes # (Auto) 0.8 0.0-1.0 X 10^3 Eosinophils # (Auto) 0.1 0.0-0.3 10^3/uL Basophils # (Auto) 0.0 0.0-0.1 10^3/uL Prothrombin Time 15.0 H 12.2-14.7 SEC INR Comment 1.1 0.8-1.4 Activated Partial Thromboplast Time 39 H 24-35 SEC Sodium Level 139 135-145 MMOL/L Potassium Level 4.4 3.6-5.0 MMOL/L Chloride Level 108 H 98-107 MMOL/L Carbon Dioxide Level 21 21-32 MMOL/L Anion Gap 10 5-14 MMOL/L Blood Urea Nitrogen 70 H 7-18 MG/DL Creatinine 4.33 H 0.60-1.30 MG/DL Estimat Glomerular Filtration Rate 13 BUN/Creatinine Ratio 16 Glucose Level 93 70-105 MG/DL Lactic Acid Level 0.62 0.50-2.00 MMOL/L Calcium Level 8.5 8.5-10.1 MG/DL Corrected Calcium 9.0 8.5-10.1 MG/DL Total Bilirubin 0.4 0.1-1.0 MG/DL Aspartate Amino Transf (AST/SGOT) 41 H 5-34 U/L Alanine Aminotransferase (ALT/SGPT) 30 0-55 U/L Alkaline Phosphatase 105 40-136 U/L Troponin I < 0.028 <0.028 NG/ML B-Type Natriuretic Peptide 446.5 H <100.0 PG/ML Total Protein 6.1 L 6.4-8.2 GM/DL Albumin 3.4 3.2-4.5 GM/DL My Orders Orders - DIMITRI SULLIVAN Cbc With Automated Diff (06/29/19 19:59) Comprehensive Metabolic Panel (06/29/19 19:59) Blood Culture (06/29/19 19:59) Sputum Culture (06/29/19 19:59) Urinalysis (06/29/19 19:59) Urine Culture (06/29/19 19:59) Protime With Inr (06/29/19 19:59) Partial Thromboplastin Time (06/29/19 19:59) Chest 1 View, Ap/Pa Only (06/29/19 19:59) Ed Iv/Invasive Line Start (06/29/19 19:59) Ed Iv/Invasive Line Start (06/29/19 19:59) Vital Signs Adult Sepsis Patie Q15M (06/29/19 19:59) O2 (06/29/19 19:59) Remove Rings In Anticipation O (06/29/19 19:59) Lactic Acid Analyzer (06/29/19 19:59) Ns Iv 1000 Ml (Sodium Chloride 0.9%) (06/29/19 19:59) Cefepime Injection (Maxipime Injection) (06/29/19 20:00) Vancomycin Injection (Vancomycin Injecti (06/29/19 20:00) Pharmacy To Dose (Pharmacy To Dose) (06/29/19 20:00) Vancomycin Injection (Vancomycin Injecti (06/29/19 20:01) Ns (Ivpb) (Sodium Chloride 0.9%) (06/29/19 20:01) Vancomycin Injection (Vancomycin Injecti (06/29/19 20:15) Ns (Ivpb) (Sodium Chloride 0.9%) (06/29/19 20:15) Fentanyl Injection (Sublimaze Injection (06/29/19 21:15) Ed Iv/Invasive Line Start (06/29/19 21:12) Ns Iv 500 Ml (Sodium Chloride 0.9%) (06/29/19 21:12) Ns Iv 1000 Ml (Sodium Chloride 0.9%) (06/29/19 21:12) BNP (06/29/19 21:21) Chest 1 View, Ap/Pa Only (06/29/19 21:52) Norepinephrine 4 Mg/250 Ml (Norepinephri (06/29/19 21:54) Ekg Tracing (06/29/19 22:07) Continuous Ekg Monitoring (06/29/19 22:07) Troponin I (06/29/19 22:07) Lorazepam Injection (Ativan Injection) (06/29/19 22:15) Norepinephrine 4 Mg/250 Ml (Norepinephri (06/29/19 22:15) Medications Given in ED Current Medications Medications Dose Ordered Sig/Adrian Route Start Time Stop Time Status Last Admin Dose Admin Cefepime HCl 1000 mg/Sterile Water 10 ml @ 200 mls/hr ONCE ONCE IV 06/29/19 20:00 06/29/19 20:04 DC 06/29/19 20:14 200 MLS/HR Fentanyl Citrate 25 mcg ONCE ONCE IVP 06/29/19 21:15 06/29/19 21:16 DC 06/29/19 21:09 25 MCG Norepinephrine Bitartrate 250 ml @ ud STK-MED ONCE IV 06/29/19 21:54 06/29/19 22:00 DC 06/29/19 22:05 2 MLS/HR Sodium Chloride 250 ml @ ud STK-MED ONCE .ROUTE 06/29/19 20:01 06/29/19 20:08 DC 06/29/19 20:16 250 MLS/HR Sodium Chloride 250 ml @ ud STK-MED ONCE .ROUTE 06/29/19 20:15 06/29/19 20:21 DC 06/29/19 20:24 250 MLS/HR Sodium Chloride 500 ml @ 0 mls/hr Q0M ONCE IV 06/29/19 21:12 06/29/19 21:13 DC 06/29/19 21:16 0 MLS/HR Vancomycin HCl 1,000 mg STK-MED ONCE .ROUTE 06/29/19 20:01 06/29/19 20:08 DC 06/29/19 20:15 750 MG Vancomycin HCl 1,000 mg STK-MED ONCE .ROUTE 06/29/19 20:15 06/29/19 20:21 DC 06/29/19 20:24 750 MG Vital Signs/I&O 06/29/19 06/29/19 06/29/19 19:19 22:05 22:05 Temp 36.4 Pulse 63 56 63 Resp 20 B/P (MAP) 96/58 (71) 96/53 96/53 Pulse Ox 99 O2 Delivery Room Air Capillary Refill : Less Than 3 Seconds Blood Pressure Mean: 71 Progress Note #1: Time: 20:27 Progress Note The patient is hypotensive which could explain his recent falls. Could be from dehydration due to too much of his torsemide or Lasix or he could be septic. We'll obtain a septic workup. Plan to give him cefepime and vancomycin as well as 2 L which is about 30 mL/kg of normal saline. No shortness of breath, cough, hemoptysis or evidence of a pulmonary embolism. Progress Note #2: Time: 20:53 Progress Note Patient's creatinine was noted to be worse than usual with a GFR 13. He typically runs around 2. 1500 mg of vancomycin was ordered initially which we reduced based on his weight and GFR down to 1 g. Nursing will just administer two thirds the dose. Diagnostic Imaging Diagonstic Imaging: Xray Plain Films/CT/US/NM/MRI: chest Comments NAME: [facility]ANNAN [facility] REC#: [id number] PT STATUS: REG ER : 1935 PHYSICIAN: DIMITRI SULLIVAN MD ADMIT DATE: 06/29/19/ER Draft Date of Exam:06/29/19 CHEST 1 VIEW, AP/PA ONLY INDICATION: Fall with rib pain. FINDINGS: The heart size is normal. The lungs are clear. There is no pleural effusion or pneumothorax. Mediastinum is unremarkable. There are no definitive displaced rib fractures. IMPRESSION: No acute cardiopulmonary abnormality. Dictated on workstation # [id number] Dict: 06/29/192016 Trans: 06/29/19 2018 [facility] [id number] Interpreted by: AVI VENCES MD Electronically signed by: Reviewed: Reviewed by Me Diagonstic Imaging: Xray Plain Films/CT/US/NM/MRI: chest Comments No pneumothorax. Says factory central line placement with the distal tip terminating over the shadow of the superior vena cava just proximal to the right atria. Reviewed: Reviewed by Me Departure Communication (PCP) Discussed the case with Dr. Pollard and she agrees the patient is to go where crematory operator is available. Impression Primary Impression: Septic shock Additional Impressions: Cellulitis Qualified Codes: L03.116 - Cellulitis of left lower limb Acute renal failure (ARF) Qualified Codes: N17.9 - Acute kidney failure, unspecified Disposition: XFER SHT-TRM HOSP Condition: Stable Transfer Transfer Reason: Exceeds level of care Time Spoke to Accepting Phy: 22:35 Transfer Progress Notes 2215: Left voicemail with Gino. Dr. Pritchett accepts the patient to the ICU. Transfer Facility: [place], [place]. Method of Transfer: EMS Departure-Patient Inst. Referrals: PAIGE POLLARD MD (PCP) Primary Care Physician DIMITRI SULLIVAN Jun 29, 2019 20:09
[2019-06-29 20:10] LABS: BASOPHILS % (AUTO) 1 % (0-10); EOSINOPHILS # (AUTO) 0.1 10^3/uL (0.0-0.3); EOSINOPHILS % (AUTO) 1 % (0-10); HEMATOCRIT 31 % (40-54); HEMOGLOBIN 9.8 G/DL (13.3-17.7); LYMPHOCYTES # (AUTO) 1.1 X 10^3 (1.0-4.0); LYMPHOCYTES % (AUTO) 17 % (12-44); MEAN CORPUSCULAR HEMOGLOBIN 30 PG (25-34); MEAN CORPUSCULAR HGB CONC 32 G/DL (32-36); MEAN CORPUSCULAR VOLUME 94 FL (80-99); MEAN PLATELET VOLUME 9.4 FL (7.4-10.4); MONOCYTES # (AUTO) 0.8 X 10^3 (0.0-1.0); MONOCYTES % (AUTO) 13 % (0-12); NEUTROPHILS # (AUTO) 4.4 X 10^3 (1.8-7.8); NEUTROPHILS % (AUTO) 69 % (42-75); PLATELET COUNT 251 10^3/uL (130-400); RED CELL DISTRIBUTION WIDTH 13.3 % (10.0-14.5); WHITE BLOOD COUNT 6.4 10^3/uL (4.3-11.0)
[2019-06-29 20:16] LABS: INR 1.1 (0.8-1.4)
[2019-06-29] MEDS: VANCOMYCIN INJECTION 750 MG in NS (IVPB) 250 ML IV SCH ×2 (20:16→21:43)
--- NOTE | 2019-06-29 20:19 | Diagnostic Imaging Report ---
INDICATION: Fall with rib pain. FINDINGS: The heart size is normal. The lungs are clear. There is no pleural effusion or pneumothorax. Mediastinum is unremarkable. There are no definitive displaced rib fractures. IMPRESSION: No acute cardiopulmonary abnormality. Dictated by: Dictated on workstation # [id number]
[2019-06-29 20:21] LABS: ALBUMIN 3.4 GM/DL (3.2-4.5); BILIRUBIN,TOTAL 0.4 MG/DL (0.1-1.0); CALCIUM 8.5 MG/DL (8.5-10.1); CREATININE SERUM 4.33 MG/DL (0.60-1.30); POTASSIUM 4.4 MMOL/L (3.6-5.0); TOTAL PROTEIN 6.1 GM/DL (6.4-8.2)
--- NOTE | 2019-06-29 20:53 | NUR ---
discussed with erp adjusting vancomycin dosing d/t decreased renal function. 1gm vanco given instead of 1500mg. Addendum: 06/29/19 at 2058 by MARY stopped after 334ml administered.
[2019-06-29] MEDS ORDERED: NS IV 500 ML 500 ML IV ONE (21:12)
[2019-06-29] MEDS ORDERED: fentaNYL INJECTION 100 MCG/2 ML AMP IVP ONE (21:15)
[2019-06-29] MEDS ORDERED: NOREPINEPHRINE 4 MG/250 ML 250 ML IV ONE (21:54)
[2019-06-29] MEDS ORDERED: NOREPINEPHRINE 4 MG/250 ML 250 ML IV SCH (22:15)
[2019-06-29] MEDS ORDERED: LORazepam INJ 2 MG/ML (ATIVAN) VIAL IVP ONE (22:15)
--- NOTE | 2019-06-29 22:30 | NUR ---
face sheet faxed to jeet
[2019-06-30] MEDS ORDERED: HYDROcodone/APAP 5 MG/325 MG (LORTAB) TAB PO ONE (00:15)
[2019-06-30 00:47] VITALS: BP 141/49
--- NOTE | 2019-06-30 06:11 | Diagnostic Imaging Report ---
EXAMINATION: Chest 1 view INDICATION: Central line placement. COMPARISON: Chest radiograph performed earlier the same date. FINDINGS: A right internal jugular central line is visualized the tip overlying the low SVC. No evidence of pneumothorax. Lung volumes are normal. The cardiac silhouette is prominent with mild prominence of the central pulmonary vasculature. No overt pulmonary edema. Possible small bilateral pleural effusions are seen. No focal consolidations. No acute osseous abnormalities. IMPRESSION: 1. Interval placement of a right internal jugular central line with the tip overlying the low SVC. No pneumothorax. 2. Cardiomegaly with central pulmonary vascular congestion. No overt pulmonary edema. 3. Likely small bilateral pleural effusions. Dictated by: Dictated on workstation # [id number]
== END 2019-06-30 00:47 | disposition short-term general hospital (02) ==
LOC: EDUNIT# 19:03 → ER 19:05
DX: A41.9 Sepsis, unspecified organism (principal); R65.21 Severe sepsis with septic shock; L03.116 Cellulitis of left lower limb; N17.9 Acute kidney failure, unspecified; I12.9 Hypertensive chronic kidney disease with stage 1 through stage 4 chronic kidney disease, or unspecified chronic kidney disease; N18.9 Chronic kidney disease, unspecified; F17.290 Nicotine dependence, other tobacco product, uncomplicated; Z86.73 Personal history of transient ischemic attack (TIA), and cerebral infarction without residual deficits; Z85.828 Personal history of other malignant neoplasm of skin; Z85.038 Personal history of other malignant neoplasm of large intestine; Z79.82 Long term (current) use of aspirin; Z79.02 Long term (current) use of antithrombotics/antiplatelets
CPT/HCPCS: 36415; 71045; 80053; 83605; 83880; 84484; 85025; 85610; 85730; 87040; 93005; 96361; 96374; 96375

== ENCOUNTER → 2019-07-16 | Outpatient (CLI) | payer OTHER | LOC: WOUNDCARE 08:57 | PROVIDERS: ATTEND Surgery | DX: L03.115 Cellulitis of right lower limb (principal); L03.116 Cellulitis of left lower limb; I89.0 Lymphedema, not elsewhere classified; I70.293 Other atherosclerosis of native arteries of extremities, bilateral legs; F03.90 Unspecified dementia, unspecified severity, without behavioral disturbance, psychotic disturbance, mood disturbance, and anxiety; N18.5 Chronic kidney disease, stage 5; I50.9 Heart failure, unspecified | CPT/HCPCS: 99213 ==

== ENCOUNTER → 2019-07-23 | Outpatient (CLI) | payer OTHER | LOC: WOUNDCARE 12:58 | PROVIDERS: ATTEND Surgery | DX: I70.293 Other atherosclerosis of native arteries of extremities, bilateral legs (principal); I89.0 Lymphedema, not elsewhere classified; F03.90 Unspecified dementia, unspecified severity, without behavioral disturbance, psychotic disturbance, mood disturbance, and anxiety; N18.5 Chronic kidney disease, stage 5; I50.9 Heart failure, unspecified | CPT/HCPCS: 99212 ==

== ENCOUNTER 2020-02-04 10:44 | Emergency (ER) | payer MEDICARE, OTHER ==
[~2020-02-04] VITALS: Ht 68 cm; Wt 72.5 kg
--- NOTE | 2020-02-04 11:09 | ED GI ---
General Chief Complaint: Abdominal/GI Problems Stated Complaint: ABD PAIN Source of Information: Patient Exam Limitations: No Limitations History of Present Illness Date Seen by Provider: Feb 04, 2020 Time Seen by Provider: 11:05 Initial Comments Shortages present to ER with 2-3 days of left lower quadrant abdominal pain. It was quite intense at first but is a little bit better today. No changes in bowel habits. No dysuria. No fevers no chills. He is scheduled for hemodialysis fistula creation in [facility] on February 08. Not currently on hemodialysis. Timing/Duration: 2-3 Days Severity/Quality: Moderate Location: LLQ Radiation: No Radiation Activities at Onset: None Associated Symptoms: Denies Symptoms Allergies and Home Medications Allergies Coded Allergies: No Known Drug Allergies (Unverified , 11/12/12) Home Medications Ascorbic Acid/Bioflavonoids 1 Each Tablet.sa, 1 EACH PO DAILY, (Reported) Aspirin 81 Mg Tab.chew, 81 MG PO DAILY, (Reported) Atenolol 50 Mg Tablet, 1 EACH PO DAILY, (Reported) B12/Levomefolate Calcium/B-6 1 Each Tablet, 1 EACH PO DAILY, (Reported) Ca Carbonate/Vitamin D3/Vit K 1 Each Tab.chew, 1 EACH PO DAILY, (Reported) Clonazepam 0.5 Mg Tab.rapdis, 0.5 MG PO DAILY, (Reported) Clopidogrel Bisulfate 75 Mg Tablet, 75 MG PO DAILY Prescribed by: DIMITRI SULLIVAN on 06/13/171845 Finasteride 1 Mg Tablet, 5 MG PO DAILY, (Reported) Flaxseed Oil 1,000 Mg Capsule, 1,000 MG PO DAILY, (Reported) Iron 18 Mg Tablet, 65 MG PO DAILY, (Reported) Magnesium Oxide 250 Mg Tablet, 250 MG PO DAILY, (Reported) Multivitamin 1 Each Tablet, 1 EACH PO DAILY, (Reported) [place] 3 Polyunsat Fatty Acids 1,000 Mg Cap, 1,000 MG PO DAILY, (Reported) Simethicone 125 Mg Capsule, 125 MG PO DAILY, (Reported) Ubidecarenone 100 Mg Capsule, 200 MG PO DAILY, (Reported) Vitamin A 8,000 Unit Capsule, 8,000 UNIT PO DAILY, (Reported) [Thyroxine] , 25 MCG AD DAILY, (Reported) Patient Home Medication List Home Medication List Reviewed: Yes Review of Systems Review of Systems Constitutional: see HPI; No chills, No fever EENTM: No Symptoms Reported Respiratory: No Symptoms Reported Cardiovascular: No Symptoms Reported Gastrointestinal: See HPI, Abdominal Pain; Denies Constipated, Denies Diarrhea, Denies Nausea, Denies Vomiting Genitourinary: No Symptoms Reported Musculoskeletal: no symptoms reported Skin: no symptoms reported Endocrine: No Symptoms Reported Hematologic/Lymphatic: No Symptoms Reported Past Kiydiqb-Epdlmt-Knllwe Hx Patient Social History Type Used: Pipe Recent Foreign Travel: No Contact w/Someone Who Travel: No Recent Hopitalizations: No Immunizations Up To Date Tetanus Booster (TDap): Unknown PED Vaccines UTD: Yes Seasonal Allergies Seasonal Allergies: No Past Medical History Abdominal Respiratory: No Cardiac: Yes Hypertension Neurological: Yes Stroke Genitourinary: No Gastrointestinal: Yes (hx colon cancer/colon resection) Musculoskeletal: No (restless leg) Endocrine: No Cancer: Yes Skin, Colon Psychosocial: No Integumentary: Yes Blood Disorders: No Physical Exam Vital Signs Vital Signs - First Documented 02/04/20 10:52 Temp 35.8 Pulse 81 Resp 16 B/P (MAP) 130/68 (88) Pulse Ox 98 O2 Delivery Room Air Capillary Refill : Height/Weight/BMI Height: 5'9.00" Weight: 160lbs. oz. [id number]; 22.00 BMI Method:Stated General Appearance: WD/WN, no apparent distress, other (elderly-appearing but ambulatory to room 6 with use of a walker. Alert and oriented very pleasant.) HEENT: PERRL/EOMI, normal ENT inspection Respiratory: no respiratory distress, no accessory muscle use Cardiovascular: regular rate, rhythm, no murmur Gastrointestinal: normal bowel sounds, soft; No tenderness Extremities: normal range of motion, non-tender Neurologic/Psychiatric: alert, normal mood/affect, oriented x 3 Skin: normal color, warm/dry Progress/Results/Core Measures Results/Orders Lab Results Laboratory Tests Test 02/04/20 11:03 02/04/20 11:37 Range/Units White Blood Count 6.1 4.3-11.0 10^3/uL Red Blood Count 3.25 L 4.30-5.52 10^6/uL Hemoglobin 9.9 L 13.3-17.7 g/dL Hematocrit 30 L 40-54 % Mean Corpuscular Volume 93 80-99 fL Mean Corpuscular Hemoglobin 31 25-34 pg Mean Corpuscular Hemoglobin Concent 33 32-36 g/dL Red Cell Distribution Width 12.4 10.0-14.5 % Platelet Count 189 130-400 10^3/uL Mean Platelet Volume 10.0 9.0-12.2 fL Immature Granulocyte % (Auto) 0 % Neutrophils (%) (Auto) 61 42-75 % Lymphocytes (%) (Auto) 23 12-44 % Monocytes (%) (Auto) 10 0-12 % Eosinophils (%) (Auto) 4 0-10 % Basophils (%) (Auto) 1 0-10 % Neutrophils # (Auto) 3.7 1.8-7.8 10^3/uL Lymphocytes # (Auto) 1.4 1.0-4.0 10^3/uL Monocytes # (Auto) 0.6 0.0-1.0 10^3/uL Eosinophils # (Auto) 0.3 0.0-0.3 10^3/uL Basophils # (Auto) 0.0 0.0-0.1 10^3/uL Immature Granulocyte # (Auto) 0.0 0.0-0.1 10^3/uL Sodium Level 138 135-145 MMOL/L Potassium Level 3.9 3.6-5.0 MMOL/L Chloride Level 104 98-107 MMOL/L Carbon Dioxide Level 22 21-32 MMOL/L Anion Gap 12 5-14 MMOL/L Blood Urea Nitrogen 59 H 7-18 MG/DL Creatinine 4.42 H 0.60-1.30 MG/DL Estimat Glomerular Filtration Rate 13 BUN/Creatinine Ratio 13 Glucose Level 99 70-105 MG/DL Calcium Level 9.0 8.5-10.1 MG/DL Corrected Calcium 8.8 8.5-10.1 MG/DL Total Bilirubin 0.5 0.1-1.0 MG/DL Aspartate Amino Transf (AST/SGOT) 24 5-34 U/L Alanine Aminotransferase (ALT/SGPT) 17 0-55 U/L Alkaline Phosphatase 84 40-136 U/L Total Protein 6.9 6.4-8.2 GM/DL Albumin 4.2 3.2-4.5 GM/DL Urine Color YELLOW Urine Clarity CLEAR Urine pH 7.0 5-9 Urine Specific [place] 1.010 L 1.016-1.022 Urine Protein 1+ H NEGATIVE Urine Glucose (UA) NEGATIVE NEGATIVE Urine Ketones NEGATIVE NEGATIVE Urine Nitrite NEGATIVE NEGATIVE Urine Bilirubin NEGATIVE NEGATIVE Urine Urobilinogen 0.2 < = 1.0 MG/DL Urine Leukocyte Esterase NEGATIVE NEGATIVE Urine RBC (Auto) TRACE-I NEGATIVE Urine RBC NONE /HPF Urine WBC 2-5 /HPF Urine Squamous Epithelial Cells 0-2 /HPF Urine Crystals NONE /LPF Urine Bacteria NEGATIVE /HPF Urine Casts NONE /LPF Urine Mucus NEGATIVE /LPF Urine Culture Indicated NO My Orders Orders - HASEEB SANTOS APRN Cbc With Automated Diff (02/04/20 11:01) Comprehensive Metabolic Panel (02/04/20 11:01) Ua Culture If Indicated (02/04/20 11:01) Ct Abd/Pelvis Wo(Kidney Stone) (02/04/20 11:01) Vital Signs/I&O 02/04/20 10:52 Temp 35.8 Pulse 81 Resp 16 B/P (MAP) 130/68 (88) Pulse Ox 98 O2 Delivery Room Air Departure Communication (Admissions) NAME: RADHASHANNAN Timmy [facility] REC#: [id number] PT STATUS: REG ER : 1935 PHYSICIAN: HASEEB SANTOS APRN ADMIT DATE: 02/04/20/ER Draft Date of Exam:02/04/20 CT ABD/PELVIS WO(KIDNEY STONE) PROCEDURE: CT urinary tract, rule out kidney stone. TECHNIQUE: Multiple contiguous axial images were obtained through the abdomen and pelvis without the use of intravenous contrast. Auto Exposure Controls were utilized during the CT exam to meet ALARA standards for radiation dose reduction. INDICATION: Left flank pain and history of kidney stones. Correlation is made with prior CT from 06/25/2019. The lung bases are clear of acute infiltrates. No discrete liver mass is detected. Gallbladder is unremarkable. No biliary ductal dilatation is detected. The pancreas and spleen are unremarkable. No adrenal mass is identified. Kidneys appear stable. Right-sided renal cyst appears stable. There is some atrophy of the right kidney. There is a tiny nonobstructing calculus left kidney approximately 1 to 2 mm in size. No ureteral calculi or hydronephrosis is identified. No definite bladder calculi are detected. The prostate remains enlarged. The small and large bowel loops are normal caliber. No obstruction is detected. There is no free fluid or fluid collection. 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 Postsurgical changes at the rectosigmoid junction noted. No definite abdominal or pelvic lymphadenopathy is seen. Bony structures are nonacute. IMPRESSION: Stable noncontrast CT abdomen and pelvis with comparison to exam from 06/25/2019. A tiny nonobstructing left renal calculus and fat-containing midline ventral hernia are unchanged. No acute feature is detected. Note is again made of prostatomegaly. Dictated on workstation # [id number] Dict: 02/04/20 1149 Trans: 02/04/20 1155 CV [id number] Interpreted by: REMY FUNEZ MD Electronically signed by: Impression Primary Impression: LLQ pain Disposition: HOME, SELF-CARE Condition: Stable Departure-Patient Inst. Decision time for Depature: 11:57 Referrals: PAIGE PERRY MD (PCP/Family) Primary Care Physician Patient Instructions: No Instuctions Given Add. Discharge Instructions: 1. return to er for any concerns or worsening symptoms. 2. Follow up with your doctor next week All discharge instructions reviewed with patient and/or family. Voiced understanding. HASEEB SANTOS ENGINEERING DESIGN MANAGER Feb 04, 2020 11:08
[2020-02-04 11:14] LABS: BASOPHILS % (AUTO) 1 % (0-10); EOSINOPHILS # (AUTO) 0.3 10^3/uL (0.0-0.3); EOSINOPHILS % (AUTO) 4 % (0-10); HEMATOCRIT 30 % (40-54); HEMOGLOBIN 9.9 g/dL (13.3-17.7); LYMPHOCYTES # (AUTO) 1.4 10^3/uL (1.0-4.0); LYMPHOCYTES % (AUTO) 23 % (12-44); MEAN CORPUSCULAR HEMOGLOBIN 31 pg (25-34); MEAN CORPUSCULAR HGB CONC 33 g/dL (32-36); MEAN CORPUSCULAR VOLUME 93 fL (80-99); MONOCYTES # (AUTO) 0.6 10^3/uL (0.0-1.0); MONOCYTES % (AUTO) 10 % (0-12); NEUTROPHILS # (AUTO) 3.7 10^3/uL (1.8-7.8); NEUTROPHILS % (AUTO) 61 % (42-75); PLATELET COUNT 189 10^3/uL (130-400); WHITE BLOOD COUNT 6.1 10^3/uL (4.3-11.0)
[2020-02-04 11:24] LABS: ALBUMIN 4.2 GM/DL (3.2-4.5); POTASSIUM 3.9 MMOL/L (3.6-5.0)
[2020-02-04 11:27] LABS: TOTAL PROTEIN 6.9 GM/DL (6.4-8.2)
[2020-02-04 11:28] LABS: BILIRUBIN,TOTAL 0.5 MG/DL (0.1-1.0)
[2020-02-04 11:30] LABS: CREATININE SERUM 4.42 MG/DL (0.60-1.30)
[2020-02-04 11:42] LABS: BILIRUBIN,URINE NEGATIVE (NEGATIVE); CLARITY,URINE CLEAR; COLOR,URINE YELLOW; GLUCOSE, URINE (UA) NEGATIVE (NEGATIVE); KETONES,URINE NEGATIVE (NEGATIVE); LEUKOCYTE ESTERASE ,URINE NEGATIVE (NEGATIVE); NITRITE,URINE NEGATIVE (NEGATIVE); PROTEIN,URINE 1+ (NEGATIVE)
[2020-02-04 11:52] LABS: BACTERIA,URINE NEGATIVE /HPF; SQUAMOUS EPITHELIAL CELL,UR 0-2 /HPF
--- NOTE | 2020-02-04 11:55 | Diagnostic Imaging Report ---
PROCEDURE: CT urinary tract, rule out kidney stone. TECHNIQUE: Multiple contiguous axial images were obtained through the abdomen and pelvis without the use of intravenous contrast. Auto Exposure Controls were utilized during the CT exam to meet ALARA standards for radiation dose reduction. INDICATION: Left flank pain and history of kidney stones. Correlation is made with prior CT from 06/25/2019. The lung bases are clear of acute infiltrates. No discrete liver mass is detected. Gallbladder is unremarkable. No biliary ductal dilatation is detected. The pancreas and spleen are unremarkable. No adrenal mass is identified. Kidneys appear stable. Right-sided renal cyst appears stable. There is some atrophy of the right kidney. There is a tiny nonobstructing calculus left kidney approximately 1 to 2 mm in size. No ureteral calculi or hydronephrosis is identified. No definite bladder calculi are detected. The prostate remains enlarged. The small and large bowel loops are normal caliber. No obstruction is detected. There is no free fluid or fluid collection. 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 Postsurgical changes at the rectosigmoid junction noted. No definite abdominal or pelvic lymphadenopathy is seen. Bony structures are nonacute. IMPRESSION: Stable noncontrast CT abdomen and pelvis with comparison to exam from 06/25/2019. A tiny nonobstructing left renal calculus and fat-containing midline ventral hernia are unchanged. No acute feature is detected. Note is again made of prostatomegaly. Dictated by: Dictated on workstation # [id number]
[2020-02-04 12:04] VITALS: BP 137/95
== END 2020-02-04 12:04 | disposition home or self-care (01) ==
LOC: EDUNIT# 10:44 → ER 10:45
DX: R10.32 Left lower quadrant pain (principal); I10 Essential (primary) hypertension; Z79.82 Long term (current) use of aspirin; Z79.02 Long term (current) use of antithrombotics/antiplatelets; Z86.73 Personal history of transient ischemic attack (TIA), and cerebral infarction without residual deficits; Z85.828 Personal history of other malignant neoplasm of skin; Z85.038 Personal history of other malignant neoplasm of large intestine
CPT/HCPCS: 36415; 74176; 80053; 81000; 85025

== ENCOUNTER 2020-02-19 14:12 | Emergency (ER) | payer MEDICARE ==
[~2020-02-19] VITALS: Ht 147 cm; Wt 72.0 kg
--- NOTE | 2020-02-19 14:28 | ED Lower Extremity ---
General Chief Complaint: Lower Extremity Stated Complaint: L LEG/FOOT PAIN Source: patient Exam Limitations: no limitations History of Present Illness Date Seen by Provider: Feb 19, 2020 Time Seen by Provider: 14:26 Initial Comments To ER with pain to the left heel. This pain has been intermittent and shoots up the left leg occasionally. However for the past 2 days this pain has been nearly constant and prevents him from walking due to the pain. He recently had left upper arm hemodialysis fistula creation though he is not yet on dialysis. Onset: other Severity: moderate Pain/Injury Location: left foot Method of Injury: fell Modifying Factors: Worse With Movement Allergies and Home Medications Allergies Coded Allergies: No Known Drug Allergies (Unverified , 11/12/12) Home Medications Ascorbic Acid/Bioflavonoids 1 Each Tablet.sa, 1 EACH PO DAILY, (Reported) Aspirin 81 Mg Tab.chew, 81 MG PO DAILY, (Reported) Atenolol 50 Mg Tablet, 1 EACH PO DAILY, (Reported) B12/Levomefolate Calcium/B-6 1 Each Tablet, 1 EACH PO DAILY, (Reported) Ca Carbonate/Vitamin D3/Vit K 1 Each Tab.chew, 1 EACH PO DAILY, (Reported) Clonazepam 0.5 Mg Tab.rapdis, 0.5 MG PO DAILY, (Reported) Clopidogrel Bisulfate 75 Mg Tablet, 75 MG PO DAILY Prescribed by: DIMITRI SULLIVAN on 06/13/171845 Finasteride 1 Mg Tablet, 5 MG PO DAILY, (Reported) Flaxseed Oil 1,000 Mg Capsule, 1,000 MG PO DAILY, (Reported) Iron 18 Mg Tablet, 65 MG PO DAILY, (Reported) Magnesium Oxide 250 Mg Tablet, 250 MG PO DAILY, (Reported) Multivitamin 1 Each Tablet, 1 EACH PO DAILY, (Reported) [place] 3 Polyunsat Fatty Acids 1,000 Mg Cap, 1,000 MG PO DAILY, (Reported) Simethicone 125 Mg Capsule, 125 MG PO DAILY, (Reported) Ubidecarenone 100 Mg Capsule, 200 MG PO DAILY, (Reported) Vitamin A 8,000 Unit Capsule, 8,000 UNIT PO DAILY, (Reported) [Thyroxine] , 25 MCG AD DAILY, (Reported) Patient Home Medication List Home Medication List Reviewed: Yes Review of Systems Constitutional: see HPI EENTM: see HPI Respiratory: no symptoms reported Cardiovascular: no symptoms reported Genitourinary: no symptoms reported Musculoskeletal: no symptoms reported Skin: no symptoms reported Psychiatric/Neurological: No Symptoms Reported Past Geucalr-Kawyrm-Sxrjyx Hx Patient Social History Alcohol Beverage of Choice: Beer Type Used: Pipe 2nd Hand Smoke Exposure: No Recent Foreign Travel: No Contact w/Someone Who Travel: No Recent Hopitalizations: No Immunizations Up To Date Tetanus Booster (TDap): Unknown PED Vaccines UTD: Yes Seasonal Allergies Seasonal Allergies: No Past Medical History Abdominal Respiratory: No Cardiac: Yes Hypertension Neurological: Yes Stroke Genitourinary: No Gastrointestinal: Yes (hx colon cancer/colon resection) Musculoskeletal: No (restless leg) Endocrine: No Cancer: Yes Skin, Colon Psychosocial: No Integumentary: Yes Blood Disorders: No Physical Exam Vital Signs Vital Signs - First Documented 02/19/20 14:22 Temp 36.7 Pulse 73 Resp 16 B/P (MAP) 132/68 (89) Pulse Ox 96 Capillary Refill : Height, Weight, BMI Height: 5'9.00" Weight: 160lbs. oz. 72.486961eb; 156.00 BMI Method:Stated General Appearance: WD/WN, no apparent distress Respiratory: no respiratory distress, no accessory muscle use Hips: bilateral hip non-tender, bilateral hip normal inspection, bilateral hip normal range of motion Legs: bilateral leg non-tender, bilateral leg normal inspection, bilateral leg normal range of motion Knees: bilateral knee non-tender, bilateral knee normal inspection, bilateral knee normal range of motion Ankles: bilateral ankle non-tender Feet: left foot other (There is a dime-sized area of erythema and maceration of tissue to the plantar surface of the left heel. He does have some chronic lymphedema but states that the swelling has recently improved quite a bit.) Neurologic/Psychiatric: alert, normal mood/affect, oriented x 3 Skin: normal color, warm/dry Progress/Results/Core Measures Results/Orders Lab Results Laboratory Tests Test 02/19/20 14:32 Range/Units White Blood Count 5.1 4.3-11.0 10^3/uL Red Blood Count 3.16 L 4.30-5.52 10^6/uL Hemoglobin 10.0 L 13.3-17.7 g/dL Hematocrit 30 L 40-54 % Mean Corpuscular Volume 94 80-99 fL Mean Corpuscular Hemoglobin 32 25-34 pg Mean Corpuscular Hemoglobin Concent 34 32-36 g/dL Red Cell Distribution Width 12.4 10.0-14.5 % Platelet Count 183 130-400 10^3/uL Mean Platelet Volume 9.8 9.0-12.2 fL Immature Granulocyte % (Auto) 1 % Neutrophils (%) (Auto) 53 42-75 % Lymphocytes (%) (Auto) 27 12-44 % Monocytes (%) (Auto) 12 0-12 % Eosinophils (%) (Auto) 7 0-10 % Basophils (%) (Auto) 0 0-10 % Neutrophils # (Auto) 2.7 1.8-7.8 10^3/uL Lymphocytes # (Auto) 1.4 1.0-4.0 10^3/uL Monocytes # (Auto) 0.6 0.0-1.0 10^3/uL Eosinophils # (Auto) 0.4 H 0.0-0.3 10^3/uL Basophils # (Auto) 0.0 0.0-0.1 10^3/uL Immature Granulocyte # (Auto) 0.0 0.0-0.1 10^3/uL Erythrocyte Sedimentation Rate 23 0-30 MM/HR Sodium Level 139 135-145 MMOL/L Potassium Level 4.0 3.6-5.0 MMOL/L Chloride Level 105 98-107 MMOL/L Carbon Dioxide Level 20 L 21-32 MMOL/L Anion Gap 14 5-14 MMOL/L Blood Urea Nitrogen 63 H 7-18 MG/DL Creatinine 4.21 H 0.60-1.30 MG/DL Estimat Glomerular Filtration Rate 14 BUN/Creatinine Ratio 15 Glucose Level 103 70-105 MG/DL Calcium Level 8.3 L 8.5-10.1 MG/DL C-Reactive Protein High Sensitivity 0.08 0.00-0.50 MG/DL My Orders Orders - HASEEB SANTOS APRN Cbc With Automated Diff (02/19/20 14:25) Basic Metabolic Panel (02/19/20 14:25) Erythrocyte Sedimentation Rate (02/19/20 14:25) Hs C Reactive Protein (02/19/20 14:25) Heel, Left, 2 View (02/19/20 14:25) Ed Iv/Invasive Line Start (02/19/20 14:25) Hydrocodone/Apap 5/325 Tablet (Lortab 5 (02/19/20 14:30) Ct Extremity Lower Left Wo (02/19/20 14:56) Medications Given in ED Current Medications Medications Dose Ordered Sig/Adrian Route Start Time Stop Time Status Last Admin Dose Admin Acetaminophen/ Hydrocodone Bitart 1 tab ONCE ONCE PO 02/19/20 14:30 02/19/20 14:31 DC 02/19/20 14:59 1 TAB Vital Signs/I&O 02/19/20 14:22 Temp 36.7 Pulse 73 Resp 16 B/P (MAP) 132/68 (89) Pulse Ox 96 Diagnostic Imaging Diagonstic Imaging: Xray Comments NAME: SHANNAN [facility] REC#: [id number] PT STATUS: REG ER : 1935 PHYSICIAN: HASEEB SANTOS APRN ADMIT DATE: 02/19/20/ER Draft Date of Exam:02/19/20 HEEL, LEFT, 2 VIEW INDICATION: Left heel pain. TIME OF EXAM: 3:05 p.m. EXAMINATION: Two views of the left heel were obtained. FINDINGS: There is a small plantar calcaneal spur. Calcaneus is intact. No fracture is seen. No definite stress reaction is identified. IMPRESSION: Small plantar calcaneal spur. No other abnormality is detected. Dictated on workstation # [id number] Dict: 02/19/20 1514 Trans: 02/19/20 1516 [facility] [id number] Interpreted by: REMY FUNEZ MD Electronically signed by: Departure Communication (Admissions) diff dx includes soft tissue infection, plantar fasciitis at the calcaneus, pain r/t osteophyte of calcaneus. 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 Impression Primary Impression: Pain of left heel Disposition: 01 HOME, SELF-CARE Condition: Stable Departure-Patient Inst. Decision time for Depature: 15:21 Referrals: DB THOMAS DPM, HOLLY A MD (PCP/Family) Primary Care Physician CAROL OLIVARES DPM Patient Instructions: Heel Pain (Caused by Plantar Fasciitis), Heel Spurs Add. Discharge Instructions: All discharge instructions reviewed with patient and/or family. Voiced understanding.. Wear the boot when you are up and around for the next 2-3 weeks. This will take some of the pressure off of your heel. Take the antibiotics and pain medication as directed. U also need to call one of the foot specialists either Dr. Mckeon for Dr. Thomas on Saturday for an appointment for follow up Scripts Hydrocodone/Acetaminophen (Lorcet 5-325 mg Tablet) 1 Each Tablet 1 EACH PO Q4-6HR PRN for PAIN-MODERATE MDD 10 for 7 Days, #10 TAB Prov: HASEEB SANTOS APRN 02/19/20 Cephalexin (Keflex) 500 Mg Capsule 500 MG PO TID, #21 CAP Prov: HASEEB SANTOS APRN 02/19/20 Copy Copies To 1: PAIGE PERRY MD, PETER J APRN Feb 19, 2020 14:28
[2020-02-19] MEDS ORDERED: HYDROcodone/APAP 5 MG/325 MG (LORTAB) TAB PO ONE (14:30)
[2020-02-19 14:45] LABS: BASOPHILS % (AUTO) 0 % (0-10); EOSINOPHILS # (AUTO) 0.4 10^3/uL (0.0-0.3); EOSINOPHILS % (AUTO) 7 % (0-10); HEMATOCRIT 30 % (40-54); LYMPHOCYTES # (AUTO) 1.4 10^3/uL (1.0-4.0); LYMPHOCYTES % (AUTO) 27 % (12-44); MEAN CORPUSCULAR HEMOGLOBIN 32 pg (25-34); MEAN CORPUSCULAR HGB CONC 34 g/dL (32-36); MEAN CORPUSCULAR VOLUME 94 fL (80-99); MEAN PLATELET VOLUME 9.8 fL (9.0-12.2); MONOCYTES # (AUTO) 0.6 10^3/uL (0.0-1.0); MONOCYTES % (AUTO) 12 % (0-12); NEUTROPHILS # (AUTO) 2.7 10^3/uL (1.8-7.8); NEUTROPHILS % (AUTO) 53 % (42-75); PLATELET COUNT 183 10^3/uL (130-400); WHITE BLOOD COUNT 5.1 10^3/uL (4.3-11.0)
[2020-02-19 14:53] LABS: CALCIUM 8.3 MG/DL (8.5-10.1)
[2020-02-19 14:58] LABS: CREATININE SERUM 4.21 MG/DL (0.60-1.30)
[2020-02-19 15:03] LABS: ERYTHROCYTE SEDIMENTATION RATE 23 MM/HR (0-30)
--- NOTE | 2020-02-19 15:17 | Diagnostic Imaging Report ---
INDICATION: Left heel pain. TIME OF EXAM: 3:05 p.m. EXAMINATION: Two views of the left heel were obtained. FINDINGS: There is a small plantar calcaneal spur. Calcaneus is intact. No fracture is seen. No definite stress reaction is identified. IMPRESSION: Small plantar calcaneal spur. No other abnormality is detected. Dictated by: Dictated on workstation # [id number]
--- NOTE | 2020-02-19 15:41 | Diagnostic Imaging Report ---
Exam: CT left foot and ankle without contrast. Date: February 19, 2020. Indication: 84-year-old male, left foot and ankle pain and swelling. Comparison: Left calcaneus radiographs February 19, 2020. Findings: There is limited sensitivity for detection of abscess given lack of postcontrast imaging. The toes are not entirely included in the [id number] on all sequences. There is prominent and diffuse subcutaneous edema centered in the region of the ankle as well as diffuse subcutaneous edema at the level of the foot most prominent dorsally although there is also abnormal subcutaneous edema in the region of the heel pad. There is a hyperdense masslike abnormality dorsally located at the level of the first distal phalanx which is incompletely imaged. This measures 10 x 7 mm in size on sagittal image 2. Recommend correlation. There is a similar-appearing abnormality within the dorsal soft tissues extending to the skin surface at the level of the fifth distal phalanx on sagittal image 65 which measures smaller in size than the previously mentioned abnormality. There is no cortical or aggressive bone destruction. There is no concerning periosteal reaction. 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 The additional joint spaces are well preserved. There are benign well-corticated ossifications in the region of the sinus tarsi. Impression: 1. High attenuation foci within the dorsal soft tissues at the level of the first distal phalanx and fifth distal phalanx of unclear exact etiology. Recommend correlation. 2. No CT evidence of osteomyelitis. 3. Extensive nonspecific and fairly diffuse subcutaneous edema at the level of the foot and ankle. Dictated by: Dictated on workstation # [id number]
[2020-02-19] MEDS ORDERED: CEPH-507 PO (15:54)
[2020-02-19] MEDS ORDERED: HYDR-3870 PO (15:54)
[2020-02-19 16:12] VITALS: BP 110/75
== END 2020-02-19 16:12 | disposition home or self-care (01) ==
LOC: EDUNIT# 14:12 → ER 14:13
DX: M79.672 Pain in left foot (principal); I10 Essential (primary) hypertension; Z85.828 Personal history of other malignant neoplasm of skin; Z85.038 Personal history of other malignant neoplasm of large intestine; Z79.82 Long term (current) use of aspirin
CPT/HCPCS: 36415; 73650; 73700; 80048; 85025; 85652; 86141

== ENCOUNTER → 2020-02-23 | Outpatient (CLI) | payer MEDICARE ==
[~2020-02-23] MED LIST changes: +CEPH-507 PO; +HYDR-3870 PO
[2020-02-23 15:19] LABS: HEMOGLOBIN 9.7 g/dL (13.3-17.7); MEAN PLATELET VOLUME 9.8 fL (9.0-12.2); WHITE BLOOD COUNT 5.8 10^3/uL (4.3-11.0)
[2020-02-23 15:25] LABS: BILIRUBIN,URINE NEGATIVE (NEGATIVE); CLARITY,URINE CLEAR; COLOR,URINE YELLOW; GLUCOSE, URINE (UA) NEGATIVE (NEGATIVE); KETONES,URINE NEGATIVE (NEGATIVE); LEUKOCYTE ESTERASE ,URINE NEGATIVE (NEGATIVE); NITRITE,URINE NEGATIVE (NEGATIVE); PH,URINE 5.5 (5-9); PROTEIN,URINE TRACE (NEGATIVE)
[2020-02-23 15:43] LABS: CALCIUM 8.5 MG/DL (8.5-10.1); CREATININE SERUM 4.21 MG/DL (0.60-1.30); POTASSIUM 4.2 MMOL/L (3.6-5.0); URIC ACID 6.2 MG/DL (2.6-7.2)
[2020-02-23 15:46] LABS: AMORPHOUS SEDIMENT,UR RARE AMOR URATES /LPF; BACTERIA,URINE TRACE /HPF; RBC,URINE 0-2 /HPF
== END ==
LOC: LAB 14:49
PROVIDERS: ATTEND Nurse Practitioner
DX: N18.5 Chronic kidney disease, stage 5 (principal)
CPT/HCPCS: 36415; 80069; 81000; 82306; 83970; 84550; 85027

== ENCOUNTER → 2020-04-06 | Outpatient (CLI) | payer MEDICARE ==
[2020-04-06 15:13] LABS: ALBUMIN 3.8 GM/DL (3.2-4.5); CALCIUM 8.3 MG/DL (8.5-10.1); CREATININE SERUM 4.02 MG/DL (0.60-1.30); PHOSPHORUS 3.9 MG/DL (2.3-4.7); POTASSIUM 4.3 MMOL/L (3.6-5.0)
== END ==
LOC: LAB 14:26
PROVIDERS: ATTEND Nurse Practitioner
DX: N17.9 Acute kidney failure, unspecified (principal); N18.9 Chronic kidney disease, unspecified
CPT/HCPCS: 36415; 80069

== ENCOUNTER 2020-05-10 13:25 | Observation (INO) | payer MEDICARE ==
[~2020-05-10] VITALS: Ht 172.7 cm; Wt 67.8 kg
[2020-05-10 13:40] LABS: BASOPHILS % (AUTO) 1 % (0-10); EOSINOPHILS # (AUTO) 0.2 10^3/uL (0.0-0.3); EOSINOPHILS % (AUTO) 4 % (0-10); HEMATOCRIT 28 % (40-54); HEMOGLOBIN 8.7 g/dL (13.3-17.7); LYMPHOCYTES # (AUTO) 1.1 10^3/uL (1.0-4.0); LYMPHOCYTES % (AUTO) 20 % (12-44); MEAN CORPUSCULAR HEMOGLOBIN 31 pg (25-34); MEAN CORPUSCULAR HGB CONC 31 g/dL (32-36); MEAN CORPUSCULAR VOLUME 99 fL (80-99); MEAN PLATELET VOLUME 9.4 fL (9.0-12.2); MONOCYTES # (AUTO) 0.6 10^3/uL (0.0-1.0); MONOCYTES % (AUTO) 11 % (0-12); NEUTROPHILS # (AUTO) 3.6 10^3/uL (1.8-7.8); NEUTROPHILS % (AUTO) 64 % (42-75); PLATELET COUNT 206 10^3/uL (130-400); WHITE BLOOD COUNT 5.6 10^3/uL (4.3-11.0)
[2020-05-10 13:42] LABS: ALBUMIN 3.7 GM/DL (3.2-4.5); POTASSIUM 4.8 MMOL/L (3.6-5.0)
[2020-05-10 13:44] LABS: CALCIUM 8.6 MG/DL (8.5-10.1)
[2020-05-10 13:45] LABS: TOTAL PROTEIN 6.3 GM/DL (6.4-8.2)
[2020-05-10 13:47] LABS: BILIRUBIN,TOTAL 0.5 MG/DL (0.1-1.0)
[2020-05-10 13:48] LABS: CREATININE SERUM 3.54 MG/DL (0.60-1.30)
--- NOTE | 2020-05-10 14:43 | ED General ---
General Chief Complaint: General Problems/Pain Stated Complaint: EDEMIA L EXT Nursing Triage Note: 1317 TO ED PER EMS FROM HOME PATIENT REPORTS HAD DIALYSIS FISTULA PLACED ON Feb WAS TO START DIALYSIS BUT NEVER HEARD FROM DR Crawford IN [place]. LEG'S HAVE BEEN SWELLING FOR SEVERAL MONTHS. OPEN AREA NOTED ON L 1ST TOE. PATIENT GIVES POOR HX. Nursing Sepsis Screen: No Definite Risk Source of Information: Patient Exam Limitations: No Limitations History of Present Illness Date Seen by Provider: May 10, 2020 Time Seen by Provider: 13:30 Initial Comments This is an 84-year-old male who presents to the ER via [facility] with complaints of bilateral lower externally swelling 2 weeks, weakness, and reports of difficulty reaching his senior piping designer to get in for dialysis. Reports having fistula placed in his right upper extremity in February, however, has not required dialysis at this time. States he thought it was probably time for him to start dialysis due to the increasing swelling of his lower extremities. States he's had difficulty getting around his house due to the increasing weakness and is unable to care for himself. Denies fevers, chills, cough, short ness of breath, nausea, vomiting, diarrhea, abdominal pain. Allergies and Home Medications Allergies Coded Allergies: No Known Drug Allergies (Unverified , 11/12/12) Home Medications Ascorbic Acid/Bioflavonoids 1 Each Tablet.sa, 1 EACH PO DAILY, (Reported) Aspirin 81 Mg Tab.chew, 81 MG PO DAILY, (Reported) Atenolol 50 Mg Tablet, 1 EACH PO DAILY, (Reported) B12/Levomefolate Calcium/B-6 1 Each Tablet, 1 EACH PO DAILY, (Reported) Ca Carbonate/Vitamin D3/Vit K 1 Each Tab.chew, 1 EACH PO DAILY, (Reported) Cephalexin 500 Mg Capsule, 500 MG PO TID Prescribed by: HASEEB SANTOS on 02/19/20 1554 Clonazepam 0.5 Mg Tab.rapdis, 0.5 MG PO DAILY, (Reported) Clopidogrel Bisulfate 75 Mg Tablet, 75 MG PO DAILY Prescribed by: DIMITRI SULLIVAN on 06/13/17 1846 Finasteride 1 Mg Tablet, 5 MG PO DAILY, (Reported) Flaxseed Oil 1,000 Mg Capsule, 1,000 MG PO DAILY, (Reported) Hydrocodone/Acetaminophen 1 Each Tablet, 1 EACH PO Q4-6HR PRN for PAIN-MODERATE Prescribed by: HASEEB SANTOS on 02/19/20 1555 Iron 18 Mg Tablet, 65 MG PO DAILY, (Reported) Magnesium Oxide 250 Mg Tablet, 250 MG PO DAILY, (Reported) Multivitamin 1 Each Tablet, 1 EACH PO DAILY, (Reported) [place] 3 Polyunsat Fatty Acids 1,000 Mg Cap, 1,000 MG PO DAILY, (Reported) Simethicone 125 Mg Capsule, 125 MG PO DAILY, (Reported) Ubidecarenone 100 Mg Capsule, 200 MG PO DAILY, (Reported) Vitamin A 8,000 Unit Capsule, 8,000 UNIT PO DAILY, (Reported) [Thyroxine] , 25 MCG AD DAILY, (Reported) Patient Home Medication List Home Medication List Reviewed: Yes Review of Systems Review of Systems Constitutional: see HPI EENTM: no symptoms reported Respiratory: no symptoms reported Cardiovascular: No chest pain; edema; No palpitations, No syncope Gastrointestinal: no symptoms reported Genitourinary: no symptoms reported Musculoskeletal: No back pain; muscle weakness Skin: change in hair/nails Psychiatric/Neurological: No Symptoms Reported Hematologic/Lymphatic: No Symptoms Reported Immunological/Allergic: no symptoms reported Past Pivlxiv-Ticlvt-Jluauf Hx Patient Social History Alcohol Use: Occasionally Uses Number of Drinks Today: AA Alcohol Beverage of Choice: Beer Recreational Drug Use: No Smoking Status: Current Someday Smoker Type Used: Pipe 2nd Hand Smoke Exposure: No Recent Foreign Travel: No Contact w/Someone Who Travel: No Recent Infectious Disease Expo: No Recent Hopitalizations: Yes (FISTULA PLACEMENT) Immunizations Up To Date Tetanus Booster (TDap): Unknown PED Vaccines UTD: Yes Date of Pneumonia Vaccine: Feb 03, 2018 Seasonal Allergies Seasonal Allergies: No Past Medical History Abdominal Respiratory: No Cardiac: Yes Hypertension Neurological: Yes Stroke Genitourinary: No Gastrointestinal: Yes (hx colon cancer/colon resection) Musculoskeletal: No (restless leg) Endocrine: No Cancer: Yes Skin, Colon Psychosocial: No Integumentary: Yes Blood Disorders: No Physical Exam Vital Signs Vital Signs - First Documented 05/10/20 13:25 Temp 36.1 Pulse 72 Resp 18 B/P (MAP) 138/78 (98) Pulse Ox 97 O2 Delivery Room Air Capillary Refill : Less Than 3 Seconds Height, Weight, BMI Height: 5'9.00" Weight: 160lbs. oz. [id number]; 25.00 BMI Method:Stated General Appearance: No Apparent Distress, WD/WN, Chronically ill Eyes: Bilateral Eye Normal Inspection, Bilateral Eye PERRL, Bilateral Eye EOMI HEENT: PERRL/EOMI, Normal ENT Inspection, Pharynx Normal, Moist Mucous Membranes Neck: Full Range of Motion, Normal Inspection, Non Tender, Supple; No Carotid Bruit Respiratory: Lungs Clear, Normal Breath Sounds, No Accessory Muscle Use, No Respiratory Distress; No Pleural Rub Cardiovascular: Regular Rate, Rhythm, No Murmur, Normal Peripheral Pulses, Other (BLE edema 2(+)) Gastrointestinal: Normal Bowel Sounds, Non Tender, Soft Extremity: Normal Capillary Refill; No No Calf Tenderness; Swelling Neurologic/Psychiatric: Alert, Oriented x3, No Motor/Sensory Deficits Skin: Normal Color, Warm/Dry Comments BLE: erythema, scaling and weeping. 3mm circular stage 2 ulcer on tip of left great toe. Focused Exam Lactate Level 05/10/20 13:24: Lactic Acid Level 1.21 Lactic Acid Level Progress/Results/Core Measures Suspected Sepsis Recent Fever Within 48 Hours: No Infection Criteria Present: None New/Unexplained Altered Menta: No Sepsis Screen: No Definite Risk SIRS Temperature: Pulse: 72 Respiratory Rate: 18 Laboratory Tests 05/10/20 13:24: White Blood Count 5.6 Blood Pressure 138 /78 Mean: 98 05/10/20 13:24: Lactic Acid Level 1.21 Laboratory Tests 05/10/20 13:24: Creatinine 3.54H, Platelet Count 206, Total Bilirubin 0.5 Results/Orders Lab Results Laboratory Tests Test 05/10/20 13:24 Range/Units White Blood Count 5.6 4.3-11.0 10^3/uL Red Blood Count 2.80 L 4.30-5.52 10^6/uL Hemoglobin 8.7 L 13.3-17.7 g/dL Hematocrit 28 L 40-54 % Mean Corpuscular Volume 99 80-99 fL Mean Corpuscular Hemoglobin 31 25-34 pg Mean Corpuscular Hemoglobin Concent 31 L 32-36 g/dL Red Cell Distribution Width 12.8 10.0-14.5 % Platelet Count 206 130-400 10^3/uL Mean Platelet Volume 9.4 9.0-12.2 fL Immature Granulocyte % (Auto) 0 % Neutrophils (%) (Auto) 64 42-75 % Lymphocytes (%) (Auto) 20 12-44 % Monocytes (%) (Auto) 11 0-12 % Eosinophils (%) (Auto) 4 0-10 % Basophils (%) (Auto) 1 0-10 % Neutrophils # (Auto) 3.6 1.8-7.8 10^3/uL Lymphocytes # (Auto) 1.1 1.0-4.0 10^3/uL Monocytes # (Auto) 0.6 0.0-1.0 10^3/uL Eosinophils # (Auto) 0.2 0.0-0.3 10^3/uL Basophils # (Auto) 0.0 0.0-0.1 10^3/uL Immature Granulocyte # (Auto) 0.0 0.0-0.1 10^3/uL Sodium Level 143 135-145 MMOL/L Potassium Level 4.8 3.6-5.0 MMOL/L Chloride Level 110 H 98-107 MMOL/L Carbon Dioxide Level 26 21-32 MMOL/L Anion Gap 7 5-14 MMOL/L Blood Urea Nitrogen 59 H 7-18 MG/DL Creatinine 3.54 H 0.60-1.30 MG/DL Estimat Glomerular Filtration Rate 17 BUN/Creatinine Ratio 17 Glucose Level 89 70-105 MG/DL Lactic Acid Level 1.21 0.50-2.00 MMOL/L Calcium Level 8.6 8.5-10.1 MG/DL Corrected Calcium 8.8 8.5-10.1 MG/DL Total Bilirubin 0.5 0.1-1.0 MG/DL Aspartate Amino Transf (AST/SGOT) 57 H 5-34 U/L Alanine Aminotransferase (ALT/SGPT) 72 H 0-55 U/L Alkaline Phosphatase 77 40-136 U/L Troponin I 0.034 H <0.028 NG/ML B-Type Natriuretic Peptide 566.5 H <100.0 PG/ML Total Protein 6.3 L 6.4-8.2 GM/DL Albumin 3.7 3.2-4.5 GM/DL My Orders Orders - GLENN HARMON AIRCRAFT SHIPPING CHECKER Cbc With Automated Diff (05/10/20 13:29) Comprehensive Metabolic Panel (05/10/20 13:29) Lactic Acid Analyzer (05/10/20 13:29) Urinalysis (05/10/20 13:29) Ekg Tracing (05/10/20 13:29) BNP (05/10/20 13:29) Troponin I (05/10/20 13:29) Vital Signs/I&O 05/10/20 05/10/20 05/10/20 05/10/20 13:25 14:58 18:23 19:51 Temp 36.1 36.8 Pulse 72 53 89 52 Resp 18 18 18 18 B/P (MAP) 138/78 (98) 120/63 (82) 120/53 105/52 Pulse Ox 97 97 94 95 O2 Delivery Room Air Room Air Room Air Room Air 05/10/20 20:02 Temp 36.8 Pulse 52 Resp 18 B/P (MAP) 105/52 (69) Pulse Ox 95 O2 Delivery Room Air Capillary Refill : Less Than 3 Seconds Blood Pressure Mean: 98 Progress Note : Progress Note Upon arrival his VS are stable. Basic labs, EKG, cardiac ordered. Labs reviewed, Hgb-8.7, which is consistent with his history of stg. 4 CKD and could also be contributing to his weakness. Troponin neg-0.034, likely bumped due to CKD. BUN-59 and Creat-3.54. Called his International Flight Attendant office at [facility], states patient has scheduled follow up appointment on May 23, but he is good to start dialysis at anytime if needed. No dialysis available at this hospital. Due to progressive weakness and elevated BUN/Creat plan will be to see about transfer and admission to medical dialysis bed. Called Dr. Pollard to discuss case. This patient is well-known to her and reports patient is unsafe to live at home alone. She has recommended residential or assisted living placement or for patient to move closer to family in [place] where he will have support with his chronic conditions, however, patient has declined stating he has too much to do here. Multiple calls have been made to the [place] elderly hotline due to inability to care for self. However, patient is of sound mind and able to make decisions for himself. Called [facility] to assist with possible transfer due to elevation in BUN/Creat., increasing fluid, and weakness. Given number for [facility] in [place]. Spoke to International Flight Attendant and hospitalist. Nephrology states patient is stable and does not require dialysis at this time. Declined transfer. Discussed case with Dr. Pollard, plan is to admit observation and discuss possible admission for inpatient rehabilitation tomorrow and have patient follow up outpatient with his senior piping designer on the as planned. ECG Initial ECG Impression Date: May 10, 2020 Initial ECG Impression Time: 13:36 Initial ECG Rate: 57 Initial ECG Rhythm: S.Ashkan Initial ECG Intervals RBBB Initial ECG Comparisson: Unchanged Departure Communication (Admissions) Time/Spoke to Admitting Phy: 16:[address] Pollard, agreeable with observation admission with plans to see about inpatient rehabilitation tomorrow. Impression Primary Impression: Leg swelling Additional Impressions: Weakness CKD (chronic kidney disease) Disposition: ADMITTED INPATIENT Condition: Stable Admissions Decision to Admit Reason: Admit from ER (General) Decision to Admit/Date: May 10, 2020 Time/Decision to Admit Time: 16:00 Departure-Patient Inst. Referrals: PAIGE POLLARD MD (PCP/Family) Primary Care Physician GLENN HARMON APRN May 10, 2020 14:43
--- NOTE | 2020-05-10 15:33 | NUR ---
CALLED PT NEPHROLOGY OFFICE PER ALISON KOO TO OBTAIN INFORMATION ON PT DIALYSIS STATUS. KATIE JOEL AT DR OFFICE STATED PT WAS DUE TO HAVE AN APPT ON 05/23/20 TO DISCUSS HIS STATUS. RELAYED THIS INFORMATION TO ALISON KOO.
--- NOTE | 2020-05-10 16:52 | NUR ---
CALLED [facility] TO TRY AND GET HIM A AID AT HOME THEY REPORT THEY DO NOT HAE AID'S REFFERED TO [facility] TALKED WITH MIKY. HE STATES THEY CAN ONLY DO PRIVIATE PAY, VA AND MEDACADE.
--- NOTE | 2020-05-10 17:00 | NUR ---
CONCERN THAT PATIENT UNABLE TO CARE FOR SELF. WILL ADMIT OBSERVATION PER DR FRANCO.
--- NOTE | 2020-05-10 17:06 | NUR ---
CALLED FOR ROOM
--- NOTE | 2020-05-10 17:07 | NUR ---
ORI WRAP TO LEG BY BETY JOEL.
[2020-05-10] MEDS ORDERED: CATHETER FLUSH 10 ML SYR IV PRN (19:45)
[2020-05-10] MEDS ORDERED: ACETAMINOPHEN 325 MG TABLET PO PRN (19:45)
[2020-05-10] MEDS ORDERED: ONDANSETRON 4 MG/2 ML (SDV) Z0FRAN IV PRN (19:45)
[2020-05-10 19:51] VITALS: BP 105/52
[2020-05-10 20:02] VITALS: BP 105/52
[2020-05-10] MEDS: CATHETER FLUSH 10 ML SYR IV SCH (21:23)
[2020-05-10] MEDS: ENOXAPARIN 30 MG/0.3 ML (LOVENOX) SYR SC SCH (21:23)
--- NOTE | 2020-05-10 21:35 | NUR ---
SHANNAN JEFFERSON admitted to room 406-1, with an admitting diagnosis of LLQ pain, pain to left heel, and leg swelling, on 05/10/20 from ED via stretcher, accompanied by staff.SHANNAN JEFFERSON introduced to surroundings, call light, bed controls, phone, TV, temperature control, lights, meal times, smoking policy, visitor policy, side rail policy, bathrooms and showers. Patient Rights given to patient in the handbook. SHANNAN JEFFERSON verbalizes understanding that [facility] is not responsible for the loss or damage to any personal effects or valuables that are kept in the patients posession during their hospitalization.
[2020-05-10 22:28] VITALS: BP 138/78
[2020-05-10] MEDS ORDERED: RT-ALBUTEROL INHALER HFA (VENTOLIN HFA) 18 GM IH PRN (22:45)
[2020-05-11 00:16] VITALS: BP 99/51
[2020-05-11] MEDS ORDERED: TRAM50TA3 PO (00:20)
[2020-05-11] MEDS ORDERED: ATEN25TA PO (00:20)
[2020-05-11] MEDS ORDERED: NF-SODBICA PO (00:30)
[2020-05-11] MEDS ORDERED: HYDR-34 PO (00:30)
[2020-05-11] MEDS ORDERED: TORS20TA3 PO (00:30)
[2020-05-11] MEDS ORDERED: FURO-124 PO (00:30)
[2020-05-11] MEDS ORDERED: OXC5T PO (00:30)
[2020-05-11 04:00] VITALS: BP 113/53
[2020-05-11 04:59] LABS: BASOPHILS % (AUTO) 0 % (0-10); EOSINOPHILS # (AUTO) 0.2 10^3/uL (0.0-0.3); EOSINOPHILS % (AUTO) 3 % (0-10); HEMATOCRIT 24 % (40-54); HEMOGLOBIN 7.7 g/dL (13.3-17.7); LYMPHOCYTES # (AUTO) 1.1 10^3/uL (1.0-4.0); LYMPHOCYTES % (AUTO) 21 % (12-44); MEAN CORPUSCULAR HEMOGLOBIN 31 pg (25-34); MEAN CORPUSCULAR HGB CONC 32 g/dL (32-36); MEAN CORPUSCULAR VOLUME 98 fL (80-99); MEAN PLATELET VOLUME 9.5 fL (9.0-12.2); MONOCYTES # (AUTO) 0.5 10^3/uL (0.0-1.0); MONOCYTES % (AUTO) 10 % (0-12); NEUTROPHILS # (AUTO) 3.5 10^3/uL (1.8-7.8); NEUTROPHILS % (AUTO) 65 % (42-75); PLATELET COUNT 165 10^3/uL (130-400); WHITE BLOOD COUNT 5.3 10^3/uL (4.3-11.0)
[2020-05-11 05:10] LABS: POTASSIUM 4.9 MMOL/L (3.6-5.0)
[2020-05-11 05:12] LABS: TOTAL PROTEIN 5.1 GM/DL (6.4-8.2)
[2020-05-11 05:14] LABS: BILIRUBIN,TOTAL 0.4 MG/DL (0.1-1.0)
[2020-05-11 05:16] LABS: CREATININE SERUM 3.56 MG/DL (0.60-1.30)
[2020-05-11] MEDS: CATHETER FLUSH 10 ML SYR IV SCH ×3 (06:05→21:09)
[2020-05-11 08:00] VITALS: BP 98/50
[2020-05-11] MEDS ORDERED: fentaNYL INJECTION 100 MCG/2 ML AMP IVP PRN (10:45)
[2020-05-11] MEDS: fentaNYL INJECTION 100 MCG/2 ML AMP IVP PRN ×2 (11:52→21:12)
[2020-05-11 12:00] VITALS: BP 107/55
[2020-05-11] MEDS ORDERED: TMSL.4C PO (14:28)
[2020-05-11] MEDS ORDERED: HYDR-3817 PO (14:28)
[2020-05-11] MEDS ORDERED: PRAM0.754 PO (14:28)
[2020-05-11] MEDS ORDERED: OXYC10TA7 PO (14:28)
--- NOTE | 2020-05-11 14:29 | NUR ---
SPOKE WITH THE PT AND WENT THRU THE EXT MED HISTORY TO COMPLETE THE MED REC PT WAS ABLE TO NAME MOST HIS MEDICATIONS (I ALSO NAMED SOME USING THE EXT MED HISTORY) AND PT WAS ABLE TO TELL ME HOW/WHEN HE TAKES EACH MED OTC MEDS: ASPIRIN 81MG
--- NOTE | 2020-05-11 14:42 | Physical Therapy Evaluation ---
PT Evaluation-General Medical Diagnosis Admission Date May 10, 2020 at 17:54 Medical Diagnosis: BLE edema Onset Date: May 10, 2020 Therapy Diagnosis Therapy Diagnosis: impaired mobility, strength, endurance Height/Weight Height (Feet): 5 Height (Inches): 9.00 Weight (Pounds): 160 Precautions Precautions/Isolations: Fall Prevention, Standard Precautions Referral Physician: Atul Reason for Referral: Evaluation/Treatment Medical History Additional Medical History Past Medical History Abdominal Respiratory: No Cardiac: Yes Hypertension Neurological: Yes Stroke Genitourinary: No Gastrointestinal: Yes (hx colon cancer/colon resection) Musculoskeletal: No (restless leg) Endocrine: No Cancer: Yes Skin, Colon Reviewed History: Yes Social History Home: Single Level Patient states he is being discharged to a shelter. Prior Prior Level of Function SCALE: Activities may be completed with or without assistive devices. 5-Wbrvaurnlr-vvspfce completes the activity by him/herself with no assistance from a helper. 5-Set-up or Clean-up Assistance-helper sets up or cleans up; patient completes activity. [place] assists only prior to or following the activity. 4-Supervision or Touching Assistance-helper provides verbal cues and/or touching/steadying and/or contact guard assistance as patient completes activity. Assistance may be provided throughout the activity or intermittently. 3-Partial/Moderate Assistance-helper does LESS THAN HALF the effort. [place]send lifts, holds or supports trunk or limbs, but provides less than half the effort. 2-Substantial/Maximal Assistance-helper does MORE THAN HALF the effort. [place] lifts or holds trunk or limbs and provides more than half the effort. 2-Pcnqqpqiy-dvugpm does ALL the effort. Patient does none of the effort to complete the activity. Or, the assistance of 2 or more helpers is required for the patient to complete the activity. If activity was not attempted, code reason: 7-Patient Refused. 9-Not Applicable-not attempted and the patient did not perform the activity before the current illness, exacerbation or injury. 10-Not Attempted due to Environmental Limitations-(lack of equipment, weather restraints, etc.). 88-Not Attempted due to Medical Conditions or Safety Concerns. Bed Mobility: 4 Transfers (B,C,W/C): 4 Gait: 4 Indoor Mobility (Ambulation): Independent Prior Devices Use: Walker PT Evaluation-Current Subjective Patient in bed pre tx, agrees to PT, has no complaints of pain at rest but states his feet are tender. His feet have sores on them, he says his leg swelling has improved. Pt/Family Goals none stated Objective Patient Orientation: Person, Place, Situation Attachments: Oxygen ROM/Strength ROM Lower Extremities limited Strength Lower Extremities 3/5 BLE gross Sensory Hearing: Functional Sensation Right Lower Extremit: Intact Sensation Left Lower Extremity: Intact Transfers Roll Left to Right (QC): 3 Sit to Lying (QC): 2 Lying to Sitting/Side of Bed(Q: 3 Patient is able to perform supine to sit with mod assist, sit to supine with max assist. Patient is able to sit for about 15 min. His knees and hips are extended but he doesn't slide off the bed, with checking ROM his joints are stiff but doesn't appear to have increased muscle tone. Balance Sitting Static: Fair Sitting Dynamic: Fair Assessment/Needs Patient has impaired mobility, strength, endurance. 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 Rehab Potential: Guarded PT Licensed Nursing Assistant Goals Licensed Nursing Assistant Goals PT Licensed Nursing Assistant Goals Time Frame: May 18, 2020 Roll Left & Right (QC): 4 Sit to Lying (QC): 4 Lying-Sitting on Side/Bed(QC): 4 Sit to Stand (QC): 3 Chair/Opk-fx-Ucprh Xfer(QC): 3 PT Plan Problem List Problem List: Activity Tolerance, Functional Strength, Safety, Balance, Gait, Transfer, Bed Mobility, ROM Treatment/Plan Treatment Plan: Continue Plan of Care Treatment Plan: Bed Mobility, Education, Functional Activity Regulo, Functional Strength, Gait, Safety, Therapeutic Exercise, Transfers Treatment Duration: May 18, 2020 Frequency: 6 times per week Estimated Hrs Per Day: .25 hour per day Patient and/or Family Agrees t: Yes Safety Risks/Education Patient Education: Transfer Techniques, Correct Positioning, Safety Issues Teaching Recipient: Patient Teaching Methods: Demonstration, Discussion Response to Teaching: Reinforcement Needed Discharge Recommendations Plan Patient will perform bed mobility and transfer training, balance and endurance training, functional strengthening, gait training, and education, to improve functional mobility and independence at home. Therapy Discharge Recommendati: 24 Hour Supervision Time/GCodes Time In: 1333 Time Out: 1402 Total Billed Treatment Time: 29 Total Billed Treatment 1 visit EVM 15' FA 14' KRTEK,GEOVANY PT May 11, 2020 14:42
[2020-05-11 16:00] VITALS: BP 116/64
--- NOTE | 2020-05-11 16:54 | NUR ---
CM/SS: Visited with pt as per plan for discharge related to placement at [facility]. Pt has a number of questions. Plan: Pt will be discharged to [facility] on tomorrow for care home placement. Summary: Pt has several questions about going to [facility]. This worker calls Velma at [facility] - Pt is able to talk with [facility] staff and ask questions, pt talks about his medicaid approval and the process. This worker has previously talked with daughter about the medicaid application as well. Looks as if pt had a spend down, and once met would meet criteria. [facility], also sent two videos that pt was able to look at related to the size of the room, and the layout of the area. Pt seems reassured by that. Pt is aware that he will be able to go on tomorrow. Pt requested that the videos also be sent to his daughter as well. 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 Pt is appreciative of the information on the facility, and will talk to daughter later this evening. This worker will follow up.
[2020-05-11 19:52] VITALS: BP 109/56
[2020-05-11] MEDS: ENOXAPARIN 30 MG/0.3 ML (LOVENOX) SYR SC SCH (20:50)
--- NOTE | 2020-05-11 21:15 | NUR ---
MEDICATED WITH [facility] FOR LEFT FOOT PAIN. TALKING ABOUT GOING TO [facility] IN AM.
[2020-05-12 00:36] VITALS: BP 127/67
[2020-05-12 04:00] VITALS: BP 110/70
[2020-05-12] MEDS: CATHETER FLUSH 10 ML SYR IV SCH ×2 (05:20→14:09)
[2020-05-12 05:34] VITALS: BP 110/70
--- NOTE | 2020-05-12 06:30 | NUR ---
SLEPT FAIR. COMPLAIN IRRITATION IN OUTER ASPECT OF RIGHT EYE OFF AND ON TONIGHT. WARM COMPRESS TO EYE AND WILL LET KNOW THIS AM.
[2020-05-12 08:00] VITALS: BP 113/55
--- NOTE | 2020-05-12 08:35 | History & Physicial ---
History of Present Illness History of Present Illness Date of Admission May 10, 2020 at 17:54 Date Seen by a Provider: May 11, 2020 Time Seen by a Provider: 08:40 Attending Physician Paige Pollard MD Admitting Physician Paige Pollard MD Consult Allergies and Home Medications Allergies Coded Allergies: No Known Drug Allergies (Unverified , 11/12/12) Home Medications Aspirin 81 Mg Tab.chew, 81 MG PO DAILY, (Reported) Atenolol 25 Mg Tablet, 25 MG PO HS, (Reported) Hydrocodone/Acetaminophen 1 Each Tablet, 0.5-1 TAB PO TID PRN for PAIN-MODERATE (5-7), (Reported) Oxycodone HCl 10 Mg Tablet, 10 MG PO QID PRN for PAIN-SEVERE (8-10), (Reported) Pramipexole Di-HCl 0.75 Mg Tablet, 0.75 MG PO BID, (Reported) Tamsulosin HCl 0.4 Mg Cap, 0.4 MG PO HS, (Reported) Torsemide 20 Mg Tablet, 40 MG PO DAILY, (Reported) TAKES 2 (20MG) TABS Past Jxnpomm-Ksjamr-Tdssrl Hx Patient Social History Alcohol Use: Occasionally Uses Alcohol Beverage of Choice: Beer Recreational Drug Use: No Smoking Status: Current Someday Smoker Type Used: Pipe 2nd Hand Smoke Exposure: No Recent Foreign Travel: No Contact w/other who traveled: No Recent Hopitalizations: Yes (FISTULA PLACEMENT) Recent Infectious Disease Expo: No Immunizations Up To Date Tetanus Booster (TDap): Unknown Pediatric: Yes Date of Pneumonia Vaccine: Feb 03, 2018 Seasonal Allergies Seasonal Allergies: No Surgeries Abdominal Respiratory No Cardiovascular Yes Hypertension Neurological Yes Stroke Genitourinary No Gastrointestinal Yes (hx colon cancer/colon resection) Musculoskeletal No (restless leg) Endocrine History of Endocrine Disorders: No Cancer Yes Skin, Colon Psychosocial History of Psychiatric Problem: No Integumentary History of Skin or Integumenta: Yes Blood Transfusions History of Blood Disorders: No Physical Exam Vital Signs Vital Signs - First Documented 05/10/20 05/10/20 13:25 22:28 Temp 36.1 Pulse 72 Resp 18 B/P (MAP) 138/78 (98) Pulse Ox 97 O2 Delivery Room Air FiO2 21 Capillary Refill : Less Than 3 SecondsLess Than 3 Seconds Height, Weight, BMI Height: 5'9.00" Weight: 160lbs. oz. 72.940117np; 22.59 BMI Method:Stated Assessment/Plan Assessment and Plan WEAKNESS FALLING AT HOME CHRONIC RENAL FAILURE HYPERTENSION HX OF STROKE Clinical Quality Measures DVT/VTE Risk/Contraindication: Risk Factor Score Per Nursin RFS Level Per Nursing on Admit: 4+=Very High PAIGE POLLARD MD May 12, 2020 08:35
[2020-05-12] MEDS ORDERED: HYDROcodone/APAP 7.5 MG/325 MG (LORTAB, LORCET PLUS) TABLET PO PRN (08:45)
[2020-05-12] MEDS ORDERED: TORSEMIDE 20 MG (DEMADEX) TAB PO SCH (09:00)
[2020-05-12] MEDS ORDERED: ASPIRIN 81 MG CHEW (CHILDREN'S ASA) PO SCH (09:00)
--- NOTE | 2020-05-12 09:16 | Discharge Summary ---
Diagnosis/Chief Complaint Date of Admission May 10, 2020 at 17:54 Date of Discharge Discharge Summary Discharge Physical Examination Allergies: Coded Allergies: No Known Drug Allergies (Unverified , 11/12/12) Vitals & I&Os Vital Signs Date Time Temp Pulse Resp B/P (MAP) Pulse Ox O2 Delivery O2 Flow Rate FiO2 05/12/20 05:34 Room Air 05/10/20 22:28 21 Discharge Instructions to patient/family Please see electronic discharge instructions given to patient. Discharge Medications Reviewed and agree with Discharge Medication list on patient's Discharge Instruction sheet Clinical Quality Measures DVT/VTE Risk/Contraindication: Risk Factor Score Per Nursin RFS Level Per Nursing on Admit: 4+=Very High PAIGE PERRY MD May 12, 2020 09:16
[2020-05-12] MEDS ORDERED: GNT.3OO351 OP ×2 (09:19→09:20)
[2020-05-12] MEDS ORDERED: OXYC10TA7 PO (09:19)
--- NOTE | 2020-05-12 09:22 | Discharge Inst-Skilled Nursing ---
Discharge Inst-Skilled NF Reconcile Patient Problems Problems Reviewed?: Yes Patient Instructions Patient Problems: chronic end stage renal failure bph chronic pain leg pain chronic wounds on feet Consult/Follow Up/Orders Follow Up Appt.: [facility] wk [facility] [address] 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 Halfway Facility Order: Nursing Services, Curing Room Supervisor-Evaluate & Treat, Physical Therapy-Evaluate & Treat, Wound Care-Eval/Treat Oxygen Delivery Method: Room Air Daily Activity as Tolerated: Yes Resuscitation Status: Full Code New & Resume Previous Orders Paige Pollard May 12, 2020 09:20 PAIGE POLLARD MD May 12, 2020 09:22
--- NOTE | 2020-05-12 10:17 | Physical Therapy Daily Note ---
PT Daily Note-Current Subjective Patient agrees to PT. Mental Status Patient Orientation: Normal For Age Transfers SCALE: Activities may be completed with or without assistive devices. 1-Cauaqgzpwr-djyykit completes the activity by him/herself with no assistance from a helper. 5-Set-up or Clean-up Assistance-helper sets up or cleans up; patient completes activity. [place] assists only prior to or following the activity. 4-Supervision or Touching Assistance-helper provides verbal cues and/or touching/steadying and/or contact guard assistance as patient completes activity. Assistance may be provided throughout the activity or intermittently. 3-Partial/Moderate Assistance-helper does LESS THAN HALF the effort. [place] lifts, holds or supports trunk or limbs, but provides less than half the effort. 2-Substantial/Maximal Assistance-helper does MORE THAN HALF the effort. [place] lifts or holds trunk or limbs and provides more than half the effort. 1-Yjpmtlumc-evdfwx does ALL the effort. Patient does none of the effort to complete the activity. Or, the assistance of 2 or more helpers is required for the patient to complete the activity. If activity was not attempted, code reason: 7-Patient Refused. 9-Not Applicable-not attempted and the patient did not perform the activity befo re the current illness, exacerbation or injury. 10-Not Attempted due to Environmental Limitations-(lack of equipment, weather re straints, etc.). 88-Not Attempted due to Medical Conditions or Safety Concerns. Lying to Sitting/Side of Bed(Q: 2 Sit to Stand (QC): 2 Chair/Xdk-ws-Mdfzd Xfer(QC): 3 Gait Training Does the Patient Walk?: Yes Distance: 15' x 1 Walk 10 feet (QC): 3 Gait Assistive Device: FWW slight LOB with PT correct/shuffle gait sequence Exercises Supine Ex: Ankle pumps, Quad Set, Heel Slides, Straight leg raise Supine Reps: 12 (AAROM) Seated Therapy Exercises: Long arc quads Seated Reps: 15 Assessment Patient requires time to complete all functional tasks. Plan dismissal to [place] on this date per physician. PT Champagne Maker Goals Champagne Maker Goals PT Champagne Maker Goals Time Frame: May 18, 2020 Roll Left & Right (QC): 4 Sit to Lying (QC): 4 Lying-Sitting on Side/Bed(QC): 4 Sit to Stand (QC): 3 Chair/Ekn-co-Ojqkp Xfer(QC): 3 PT Plan Treatment/Plan Treatment Plan: Continue Plan of Care Treatment Plan: Bed Mobility, Education, Functional Activity Regulo, Functional Strength, Gait, Safety, Therapeutic Exercise, Transfers Treatment Duration: May 18, 2020 Frequency: 6 times per week Estimated Hrs Per Day: .25 hour per day Patient and/or Family Agrees t: Yes Time/GCodes Time In: 901 Time Out: 924 Total Billed Treatment Time: 23 Total Billed Treatment 1 visit EX 13 min FA 10 min BA MULLIGAN PT May 12, 2020 10:17
[2020-05-12 12:00] VITALS: BP 128/65
--- NOTE | 2020-05-12 13:58 | NUR ---
CM/SS: Visited with pt as to his finalized plan for discharge. Pt is aware he will be admitted to [facility] on today. They can picker feeder pt around 2pm. Plan: Pt will go to [facility] for skilled stay and will likely remain there retirement. Summary: Pt has his notebook out and writing things down. He has requested that his sister bring him some clothes. He is advised to have her bring them to the facility. He will need clothes from the clothes closet to discharge from here. Pt reports talking to his daughter and she is ok with the plan. Pt reports he will need to remain retirement at the facility. 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 Pt verbalizes understanding. Jogging pants and sweatshirt provided to pt. Pt is wished well as he transitions to the facility. Pt thanks this worker for her help.
--- NOTE | 2020-05-12 14:11 | NUR ---
CM/SS: Telephone call to daughter Melonie -[phone] - letting her know the finalize plan with pt going to [facility]. She is ok with that and knows that someone will be in contact with her as to the medicaid if pt would need to remain longer at the facility. Daughter is appreciative of the help and services. If she has questions she is encouraged to call or to reach out to the [facility] staff and they can assist her. She verbalizes understanding, thanks this worker for her help with her dad and she and pt are wished well.
--- NOTE | 2020-05-12 15:40 | NUR ---
REPORT PHONED TO WISAM ALLEN AT [facility], [place].
[2020-05-12] MEDS ORDERED: ATENOLOL 25 MG (TENORMIN) TAB PO SCH (21:00)
[2020-05-12] MEDS ORDERED: TAMSULOSIN 0.4 MG (FLOMAX) CAP PO SCH (21:00)
== END 2020-05-12 09:17 ==
LOC: EDUNIT# 13:25 → ER 13:26 → 4TH 17:38 → UNDOADMOB 17:54 → 4TH 17:54 → UNDODISOB 05-12 14:55
PROVIDERS: ADMIT Family Medicine; ATTEND Family Medicine
DX: R60.0 Localized edema (principal); I12.9 Hypertensive chronic kidney disease with stage 1 through stage 4 chronic kidney disease, or unspecified chronic kidney disease; N18.9 Chronic kidney disease, unspecified; F17.210 Nicotine dependence, cigarettes, uncomplicated; Z79.82 Long term (current) use of aspirin; Z79.899 Other long term (current) drug therapy; Z86.73 Personal history of transient ischemic attack (TIA), and cerebral infarction without residual deficits; Z85.038 Personal history of other malignant neoplasm of large intestine; Z85.828 Personal history of other malignant neoplasm of skin; Z91.81 History of falling
CPT/HCPCS: 80053 ×2; 83605; 83880; 84484; 85025 ×2; 87040; 93005; 94760; 97110; 97530; 99284; G0378; 36415

== ENCOUNTER → 2020-11-23 | Outpatient (CLI) | payer MEDICARE ==
[~2020-11-23] MED LIST changes: +ATEN25TA PO; +FURO-124 PO; +GNT.3OO351 OP; +HYDR-34 PO; +HYDR-3817 PO; +NF-SODBICA PO; +OXC5T PO; +OXYC10TA7 PO; +PRAM0.754 PO; +TMSL.4C PO; +TORS20TA3 PO; +TRAM50TA3 PO
--- NOTE | 2020-11-23 10:13 | Diagnostic Imaging Report ---
Indication: Renal disease. Compared: 06/29/2019 Findings: The right IJ catheter previously present has been removed. There is no pneumothorax. The lungs clear. No effusion or pneumothorax. The heart size and pulmonary vascularity normal. No failure pattern. Impression: Unremarkable 2 view chest. Dictated by: Dictated on workstation # [id number]
== END ==
LOC: RAD 09:04
PROVIDERS: ATTEND Nurse Practitioner
DX: N18.5 Chronic kidney disease, stage 5 (principal)
CPT/HCPCS: 71046

== ENCOUNTER 2020-12-15 10:23 | Emergency (ER) | payer MEDICARE ==
[~2020-12-15] VITALS: Ht 187 cm; Wt 72.0 kg
[2020-12-15 10:48] LABS: BASOPHILS % (AUTO) 0 % (0-10); EOSINOPHILS % (AUTO) 0 % (0-10); HEMATOCRIT 27 % (40-54); HEMOGLOBIN 8.8 g/dL (13.3-17.7); LYMPHOCYTES # (AUTO) 0.4 10^3/uL (1.0-4.0); LYMPHOCYTES % (AUTO) 3 % (12-44); MEAN CORPUSCULAR HEMOGLOBIN 31 pg (25-34); MEAN CORPUSCULAR HGB CONC 32 g/dL (32-36); MEAN CORPUSCULAR VOLUME 96 fL (80-99); MEAN PLATELET VOLUME 10.5 fL (9.0-12.2); MONOCYTES # (AUTO) 0.4 10^3/uL (0.0-1.0); MONOCYTES % (AUTO) 3 % (0-12); NEUTROPHILS # (AUTO) 12.3 10^3/uL (1.8-7.8); NEUTROPHILS % (AUTO) 91 % (42-75); PLATELET COUNT 139 10^3/uL (130-400); WHITE BLOOD COUNT 13.5 10^3/uL (4.3-11.0)
[2020-12-15 10:57] LABS: INR 1.3 (0.8-1.4); PROTHROMBIN TIME PATIENT 16.3 SEC (12.2-14.7)
[2020-12-15 10:58] LABS: ALBUMIN 3.4 GM/DL (3.2-4.5)
[2020-12-15 11:00] LABS: CALCIUM 8.4 MG/DL (8.5-10.1)
[2020-12-15 11:01] LABS: TOTAL PROTEIN 6.1 GM/DL (6.4-8.2)
[2020-12-15 11:03] LABS: BILIRUBIN,TOTAL 0.5 MG/DL (0.1-1.0)
[2020-12-15 11:05] LABS: CREATININE SERUM 5.28 MG/DL (0.60-1.30)
--- NOTE | 2020-12-15 11:06 | ED General ---
General Chief Complaint: Fever-Adult/Adol Stated Complaint: WEAKNESS,FEVER, L BP Nursing Triage Note: ARRIVED VIA EMS FROM [facility]. HAS NOT FELT WELL FOR A COUPLE OF DAYS. DID NOT GO TO DIALYSIS YESTERDAY. TODAY COMPLAINS OF A FEVER AND LOW BP. Source of Information: Patient Exam Limitations: No Limitations History of Present Illness Date Seen by Provider: Dec 15, 2020 Time Seen by Provider: 11:02 Initial Comments To ER from [facility]. Is not felt well for a couple of days. He is end-stage renal disease on hemodialysis but he does still produce urine. He missed dialysis yesterday. Complains of fever and low blood pressure. He is full code. Timing/Duration: 1-2 Days Severity: Moderate Associated Systoms: Fever/Chills Allergies and Home Medications Allergies Coded Allergies: No Known Drug Allergies (Unverified , 11/12/12) Home Medications Aspirin 81 Mg Tab.chew, 81 MG PO DAILY, (Reported) Atenolol 25 Mg Tablet, 25 MG PO HS, (Reported) Gentamicin Sulfate 3.5 Gm Oint...g., 3.5 GM OP QID apply to right eye Prescribed by: PAIGE PERRY on 05/12/20 0920 Oxycodone HCl 10 Mg Tablet, 10 MG PO QID PRN for PAIN-MODERATE (5-7) Prescribed by: PAIGE PERRY on 05/12/20 0919 Pramipexole Di-HCl 0.75 Mg Tablet, 0.75 MG PO BID, (Reported) Tamsulosin HCl 0.4 Mg Cap, 0.4 MG PO HS, (Reported) Torsemide 20 Mg Tablet, 40 MG PO DAILY, (Reported) TAKES 2 (20MG) TABS Patient Home Medication List Home Medication List Reviewed: Yes Review of Systems Review of Systems Constitutional: see HPI; No chills, No fever EENTM: see HPI Respiratory: no symptoms reported Cardiovascular: no symptoms reported Genitourinary: no symptoms reported Musculoskeletal: no symptoms reported Skin: no symptoms reported Psychiatric/Neurological: No Symptoms Reported Hematologic/Lymphatic: No Symptoms Reported Immunological/Allergic: no symptoms reported Past Fdqxsue-Fwwwfo-Klnhzb Hx Patient Social History Smoking Status: Never a Smoker Substance use?: No Alcohol Use?: No Immunizations Up To Date Tetanus Booster (TDap): Unknown PED Vaccines UTD: Yes Second COVID19 Vaccination Koffi: UNKNOWN Seasonal Allergies Seasonal Allergies: No Past Medical History Abdominal Respiratory: No Cardiac: Yes Hypertension Neurological: Yes Stroke Genitourinary: No Gastrointestinal: Yes (hx colon cancer/colon resection) Musculoskeletal: No (restless leg) Endocrine: No Cancer: Yes Skin, Colon Psychosocial: No Integumentary: Yes Blood Disorders: No Physical Exam Vital Signs Vital Signs - First Documented 12/15/20 12/15/20 10:23 14:00 Temp 37.9 Pulse 86 Resp 16 B/P (MAP) 102/57 (72) Pulse Ox 92 O2 Delivery Room Air O2 Flow Rate 2.00 Capillary Refill : Less Than 3 Seconds Height, Weight, BMI Height: 5'9.00" Weight: 160lbs. oz. 72.714177sv; 20.00 BMI Method:Stated General Appearance: No Apparent Distress, WD/WN Eyes: Bilateral Eye Normal Inspection, Bilateral Eye PERRL, Bilateral Eye EOMI Neck: Full Range of Motion, Normal Inspection Respiratory: No Accessory Muscle Use, No Respiratory Distress Extremity: Normal Capillary Refill, Normal Inspection, Other Neurologic/Psychiatric: Alert, Oriented x3 Focused Exam Lactate Level 12/15/20 10:30: Lactic Acid Level 1.91 Lactic Acid Level Laboratory Tests Test 12/15/20 10:30 Lactic Acid Level 1.91 MMOL/L (0.50-2.00) Procedures/Interventions Lumen: triple Central Line Procedure: betadine prep, sterile drapes applied, sterile dressing applied Position: femoral (R) Anesthesia: local Volume Anesthetic (ccs): 5 Post Position: sutured, good blood return Progress/Results/Core Measures Suspected Sepsis SIRS Temperature: Pulse: 86 Respiratory Rate: 16 Laboratory Tests 12/15/20 10:30: White Blood Count 13.5H Blood Pressure 102 /57 Mean: 72 12/15/20 10:30: Lactic Acid Level 1.91 Laboratory Tests 12/15/20 10:30: Creatinine 5.28H, INR Comment 1.3, Platelet Count 139, Total Bilirubin 0.5 Results/Orders Lab Results Laboratory Tests Test 12/15/20 10:30 12/15/20 12:49 Range/Units White Blood Count 13.5 H 4.3-11.0 10^3/uL Red Blood Count 2.84 L 4.30-5.52 10^6/uL Hemoglobin 8.8 L 13.3-17.7 g/dL Hematocrit 27 L 40-54 % Mean Corpuscular Volume 96 80-99 fL Mean Corpuscular Hemoglobin 31 25-34 pg Mean Corpuscular Hemoglobin Concent 32 32-36 g/dL Red Cell Distribution Width 14.3 10.0-14.5 % Platelet Count 139 130-400 10^3/uL Mean Platelet Volume 10.5 9.0-12.2 fL Immature Granulocyte % (Auto) 3 % Neutrophils (%) (Auto) 91 H 42-75 % Lymphocytes (%) (Auto) 3 L 12-44 % Monocytes (%) (Auto) 3 0-12 % Eosinophils (%) (Auto) 0 0-10 % Basophils (%) (Auto) 0 0-10 % Neutrophils # (Auto) 12.3 H 1.8-7.8 10^3/uL Lymphocytes # (Auto) 0.4 L 1.0-4.0 10^3/uL Monocytes # (Auto) 0.4 0.0-1.0 10^3/uL Eosinophils # (Auto) 0.0 0.0-0.3 10^3/uL Basophils # (Auto) 0.0 0.0-0.1 10^3/uL Immature Granulocyte # (Auto) 0.4 H 0.0-0.1 10^3/uL Neutrophils % (Manual) 88 % Lymphocytes % (Manual) 3 % Monocytes % (Manual) 1 % Band Neutrophils 8 % Polychromasia Poikilocytosis SLIGHT Elliptocytes SLIGHT Prothrombin Time 16.3 H 12.2-14.7 SEC INR Comment 1.3 0.8-1.4 Activated Partial Thromboplast Time 42 H 24-35 SEC Sodium Level 136 135-145 MMOL/L Potassium Level 4.0 3.6-5.0 MMOL/L Chloride Level 102 98-107 MMOL/L Carbon Dioxide Level 19 L 21-32 MMOL/L Anion Gap 15 H 5-14 MMOL/L Blood Urea Nitrogen 57 H 7-18 MG/DL Creatinine 5.28 H 0.60-1.30 MG/DL Estimat Glomerular Filtration Rate 10 BUN/Creatinine Ratio 11 Glucose Level 125 H 70-105 MG/DL Lactic Acid Level 1.91 0.50-2.00 MMOL/L Calcium Level 8.4 L 8.5-10.1 MG/DL Corrected Calcium 8.9 8.5-10.1 MG/DL Total Bilirubin 0.5 0.1-1.0 MG/DL Aspartate Amino Transf (AST/SGOT) 16 5-34 U/L Alanine Aminotransferase (ALT/SGPT) 9 0-55 U/L Alkaline Phosphatase 54 40-136 U/L Total Protein 6.1 L 6.4-8.2 GM/DL Albumin 3.4 3.2-4.5 GM/DL Procalcitonin 12.72 H <0.10 NG/ML SARS-CoV-2 RNA (RT-PCR) Not Detected Not Detecte Urine Color YELLOW Urine Clarity CLEAR Urine pH 5.0 5-9 Urine Specific [place] 1.020 1.016-1.022 Urine Protein TRACE H NEGATIVE Urine Glucose (UA) NEGATIVE NEGATIVE Urine Ketones NEGATIVE NEGATIVE Urine Nitrite NEGATIVE NEGATIVE Urine Bilirubin NEGATIVE NEGATIVE Urine Urobilinogen 0.2 < = 1.0 MG/DL Urine Leukocyte Esterase NEGATIVE NEGATIVE Urine RBC (Auto) 1+ H NEGATIVE Urine RBC 0-2 /HPF Urine WBC NONE /HPF Urine Squamous Epithelial Cells 5-10 /HPF Urine Crystals PRESENT H /LPF Urine Amorphous Sediment FEW LENO URATES H /LPF Urine Bacteria NEGATIVE /HPF Urine Casts NONE /LPF Urine Mucus NEGATIVE /LPF Urine Culture Indicated NO My Orders Orders - HASEEB SANTOS APRN Covid 19 Inhouse Test (12/15/20 10:40) Cbc With Automated Diff (12/15/20 10:40) Comprehensive Metabolic Panel (12/15/20 10:40) Chest 1 View, Ap/Pa Only (12/15/20 10:40) Ua Culture If Indicated (12/15/20 10:40) Blood Culture (12/15/20 10:40) Sputum Culture (12/15/20 10:40) Urine Culture (12/15/20 10:40) Protime With Inr (12/15/20 10:40) Partial Thromboplastin Time (12/15/20 10:40) Ed Iv/Invasive Line Start (12/15/20 10:40) Vital Signs Adult Sepsis Patie Q15M (12/15/20 10:40) O2 (12/15/20 10:40) Remove Rings In Anticipation O (12/15/20 10:40) Lactic Acid Analyzer (12/15/20 10:40) Manual Differential (12/15/20 10:30) Acetaminophen Tablet/Caplet (Tylenol T (12/15/20 12:00) Ibuprofen Tablet (Motrin Tablet) (12/15/20 12:00) Procalcitonin (Pct) (12/15/20 11:50) Ns Iv 1000 Ml (Sodium Chloride 0.9%) (12/15/20 13:15) Fentanyl Inj (Sublimaze Injection) (12/15/20 13:30) Piperacillin Sodium/Tazobactam (Zosyn Vi (12/15/20 13:30) Norepinephrine 8 Mg/250 Ml (Norepinephri (12/15/20 14:03) General/Regular (12/15/20 Dinner) Hydrocortisone Injection (Solu-Cortef In (12/15/20 18:15) Piperacillin/Tazobactam (Bulk) (Zosyn In (12/15/20 20:30) Hydrocortisone Injection (Solu-Cortef In (12/15/20 20:47) Piperacillin Sodium/Tazobactam (Zosyn Vi (12/15/20 20:50) Ns (Ivpb) (Sodium Chloride 0.9% Ivpb Bag (12/15/20 20:52) Medications Given in ED Current Medications Medications Dose Ordered Sig/Adrian Route Start Time Stop Time Status Last Admin Dose Admin Acetaminophen 650 mg ONCE ONCE PO 12/15/20 12:00 12/15/20 12:01 DC 12/15/20 11:54 650 MG Fentanyl Citrate 50 mcg ONCE ONCE IVP 12/15/20 13:30 12/15/20 13:31 DC 12/15/20 13:38 50 MCG Hydrocortisone Sodium Succinate 100 mg ONCE ONCE IV 12/15/20 18:15 12/15/20 18:16 DC 12/15/20 21:07 100 MG Ibuprofen 600 mg ONCE ONCE PO 12/15/20 12:00 12/15/20 12:01 DC 12/15/20 11:54 600 MG Piperacillin Sod/ Tazobactam Sod 4.5 gm/Sodium Chloride 100 ml @ 200 mls/hr ONCE ONCE IV 12/15/20 13:30 12/15/20 13:59 DC 12/15/20 13:41 200 MLS/HR Piperacillin Sod/ Tazobactam Sod 4.5 gm/Sodium Chloride 120 ml @ 240 mls/hr ONCE ONCE IV 12/15/20 20:30 12/15/20 20:59 DC 12/15/20 21:06 240 MLS/HR Vital Signs/I&O 12/15/20 12/15/20 12/15/20 12/15/20 10:23 11:50 13:13 14:00 Temp 37.9 38.2 37.9 Pulse 86 Resp 16 B/P (MAP) 102/57 (72) Pulse Ox 92 88 O2 Delivery Room Air Nasal Cannula O2 Flow Rate 2.00 12/15/20 12/15/20 12/15/20 12/15/20 14:19 14:30 14:35 14:38 Pulse 79 78 74 79 B/P (MAP) 74/39 80/44 89/45 81/42 12/15/20 12/15/20 12/15/20 12/15/20 14:41 14:44 14:46 14:49 Pulse 79 76 75 76 B/P (MAP) 81/38 88/42 83/44 90/45 12/15/20 12/15/20 12/15/20 12/15/20 14:51 17:11 17:40 17:43 Pulse 70 69 73 77 B/P (MAP) 90/55 74/45 88/48 86/48 12/15/20 12/15/20 12/15/20 12/15/20 17:46 17:50 17:53 17:55 Pulse 75 72 74 72 B/P (MAP) 77/51 79/46 84/48 86/50 12/15/20 12/15/20 17:59 18:35 Pulse 74 66 B/P (MAP) 85/48 97/56 Capillary Refill : Less Than 3 Seconds Blood Pressure Mean: 72 Departure Communication (Admissions) Family Conversation 1411-his blood pressure has fallen to 75/36 currently. This is consistent on several readings though he is mentating well. I did go ahead and start an ultrasound-guided right femoral vein triple-lumen central venous catheter. He has a tunneled hemodialysis catheter in the right anterior chest wall. Levophed started at 0.1 mics per kilo per minute. 1510-blood pressure up to 94/54 heart rate 72 mentation is still normal. I am using [facility] to help with transfer services. Nothing has been found yet. This [place] [facility] [place] [facility], [facility] [place] [facility]. I then personally called [facility] at [place], [facility] and [facility] in [place]. None of these hospitals are able to accept the transfer. 1801-Levophed at 0.19mcg/kg/min wi bp 93/48. Hydrocortisone 100mg IV ordered. Zosyn is in. 1 L fluid bolus is in--not giving more due to ESRD on hemodialysis. Still alert and oriented. 1900- has accepted. 2219-[facility] here to transport. BP 114/76. A&O x3 NAME: SHANNAN JEFFERSON [facility] REC#: [id number] PT STATUS: REG ER : 1937 PHYSICIAN: HASEEB SANTOS APRN ADMIT DATE: 12/15/20/ER Draft Date of Exam:12/15/20 CHEST 1 VIEW, AP/PA ONLY EXAMINATION: Chest 1 view HISTORY: Shortness of air COMPARISON: 06/29/2019 FINDINGS: Heart size and pulmonary vasculature are normal. Minimal interstitial opacities in the lung bases. Right-sided IJ central line is present with the tip projecting over the atriocaval junction. No pleural effusion or pneumothorax. The osseous structures are intact. IMPRESSION: 1. Minimal bibasilar interstitial opacities which could represent atypical infection, atelectasis, or edema. Dictated on workstation # [id number] Dict: 12/15/20 1130 Trans: 12/15/20 [facility] [id number] Interpreted by: AIMEE FREEMAN DO Electronically signed by: Impression Primary Impression: Septic shock Additional Impression: ESRD (end stage renal disease) on dialysis Disposition: XFER SHT-TRM HOSP Condition: Stable Transfer Transfer Reason: Exceeds level of care Time Spoke to Accepting Phy: 14:23 Departure-Patient Inst. Referrals: PAIGE PERRY MD (PCP/Family) Primary Care Physician HASEEB SANTOS APRN Dec 15, 2020 11:06
[2020-12-15 11:30] LABS: BAND NEUTROPHILS 8 %; ELLIPT/OVALOCYTES SLIGHT; LYMPHOCYTES % (MANUAL) 3 %; MONOCYTES % (MANUAL) 1 %; NEUTROPHILS % (MANUAL) 88 %; POIKILOCYTOSIS SLIGHT
--- NOTE | 2020-12-15 11:38 | Diagnostic Imaging Report ---
EXAMINATION: Chest 1 view HISTORY: Shortness of air COMPARISON: 06/29/2019 FINDINGS: Heart size and pulmonary vasculature are normal. Minimal interstitial opacities in the lung bases. Right-sided IJ central line is present with the tip projecting over the atriocaval junction. No pleural effusion or pneumothorax. The osseous structures are intact. IMPRESSION: 1. Minimal bibasilar interstitial opacities which could represent atypical infection, atelectasis, or edema. Dictated by: Dictated on workstation # [id number]
[2020-12-15] MEDS ORDERED: ACETAMINOPHEN 325 MG TABLET PO ONE (12:00)
[2020-12-15] MEDS ORDERED: IBUPROFEN 600 MG (MOTRIN) TAB PO ONE (12:00)
[2020-12-15 13:01] LABS: BILIRUBIN,URINE NEGATIVE (NEGATIVE); CLARITY,URINE CLEAR; COLOR,URINE YELLOW; GLUCOSE, URINE (UA) NEGATIVE (NEGATIVE); KETONES,URINE NEGATIVE (NEGATIVE); LEUKOCYTE ESTERASE ,URINE NEGATIVE (NEGATIVE); NITRITE,URINE NEGATIVE (NEGATIVE); PROTEIN,URINE TRACE (NEGATIVE)
[2020-12-15] MEDS ORDERED: NS IV 1000 ML 1,000 ML IV SCH (13:15)
[2020-12-15] MEDS ORDERED: fentaNYL INJ 100 MCG/2 ML AMP IVP ONE (13:30)
[2020-12-15] MEDS ORDERED: PIPERACILLIN SODIUM/TAZOBACTAM 4.5 GM in NS (IVPB) 100 ML IV ONE (13:30)
[2020-12-15 13:34] LABS: BACTERIA,URINE NEGATIVE /HPF; RBC,URINE 0-2 /HPF
[2020-12-15 13:35] LABS: AMORPHOUS SEDIMENT,UR FEW AMOR URATES /LPF
[2020-12-15] MEDS ORDERED: NOREPINEPHRINE 8 MG/250 ML 250 ML IV ONE (14:03)
[2020-12-15] MEDS ORDERED: NOREPINEPHRINE 8 MG/250 ML 250 ML IV SCH (14:15)
[2020-12-15] MEDS ORDERED: HYDROCORTISONE 100 MG/2 ML (Solu-CORTEF) VIAL IV ONE (18:15)
[2020-12-15] MEDS ORDERED: PIPERACILLIN/TAZOBACTAM (BULK) 4.5 GM in NS (IVPB) 100 ML IV ONE (20:30)
[2020-12-15] MEDS ORDERED: HYDROCORTISONE 100 MG/2 ML (Solu-CORTEF) VIAL ONE (20:47)
[2020-12-15] MEDS ORDERED: PIPERACILLIN/TAZO 4.5 GM VIAL (ZOSYN) IV ONE (20:50)
[2020-12-15] MEDS ORDERED: NS (IVPB) 100 ML ONE (20:52)
[2020-12-15 22:25] VITALS: BP 129/76
== END 2020-12-15 22:26 | disposition short-term general hospital (02) ==
LOC: EDUNIT# 10:23 → ER 10:24
DX: I12.0 Hypertensive chronic kidney disease with stage 5 chronic kidney disease or end stage renal disease (principal); R65.21 Severe sepsis with septic shock; N18.6 End stage renal disease; Z20.822 Contact with and (suspected) exposure to COVID-19; Z86.73 Personal history of transient ischemic attack (TIA), and cerebral infarction without residual deficits; Z79.82 Long term (current) use of aspirin
CPT/HCPCS: 36415; 51701; 71045; 80053; 81000; 83605; 84145; 85007; 85027; 85610; 85730; 87040; 87077; 87088; 87186; 87636; 96365; 96375

== ENCOUNTER → 2021-05-30 | Outpatient (CLI) | payer MEDICARE ==
--- NOTE | 2021-05-30 11:44 | Diagnostic Imaging Report ---
PROCEDURE: US Gallbladder. INDICATION: Abdominal pain TECHNIQUE: Multiple grayscale sonographic images were obtained of the right upper quadrant of the abdomen. CORRELATION STUDY: None FINDINGS: LIVER: There is uniform echotexture within the visualized portions of the liver. The main portal vein is patent and with normal direction of flow. Liver length 15.2 cm. GALLBLADDER: The gallbladder demonstrates no definitive shadowing gallstones. Borderline gallbladder wall thickening, 0.3 cm. COMMON BILE DUCT: Obscured not visualized. AORTA/IVC: Not well visualized. PANCREAS: Visualized portions appearing unremarkable. RIGHT KIDNEY: Right kidney is not well visualized and not able to be well differentiated from adjacent bowel. Kidney measures approximately 7.8 x 3.7 x 2.9 cm. Question of small cystic structure along the lateral right kidney measuring 1.6 x 1.5 x 1.2 cm likely a cyst. Diffuse echogenicity of the renal parenchyma. OTHER: None. IMPRESSION: 1. Negative for gallstones. Common bile duct not visualized but without overt bile duct dilatation. 2. Appears to be small, atrophic echogenic appearance about the right kidney. Probable right renal cyst. Dictated by: Dictated on workstation # [id number]
== END ==
LOC: RAD 08:30
PROVIDERS: ATTEND Nurse Practitioner Family
DX: R10.9 Unspecified abdominal pain (principal)
CPT/HCPCS: 76705

== ENCOUNTER 2021-06-03 08:20 | Emergency (ER) | payer MEDICARE ==
[~2021-06-03] VITALS: Ht 172 cm; Wt 74.8 kg
--- NOTE | 2021-06-03 08:59 | ED Abdominal Pain ---
General Chief Complaint: Abdominal/GI Problems Stated Complaint: ABD PAIN Nursing Triage Note: PT PRESENTS TO ED VIA EMS FROM HOME WITH COMPLAINTS OF BELLY PAIN X 1 WEEK, GETTING WORSE LAST NIGHT. PT REPORTS LAST BM WAS YESTERDAY AND NORMAL FOR HIM. PT DENIES N/V. Source of Information: Patient Exam Limitations: No Limitations History of Present Illness Date Seen by Provider: Jun 03, 2021 Time Seen by Provider: 08:35 Initial Comments Patient is an 86-year-old male who presents to the emergency room by ambulance from [facility] [place] with a chief complaint of abdominal pain x1 week. Patient states it got worse overnight. He states currently it feels a little bit better. He is not nauseous. He has not had breakfast yet this morning. He points to the mid abdomen all the way across. He states that the pain has been crampy in nature. His last bowel movement was yesterday, he did not note if it was black or bloody. No problems with urination. No fevers or chills. He has not been nauseous throughout the week. He does have a history of colon cancer last treated in the early . No reported fevers or chills. No cough. He is a little short of breath with exertion which is routine for him. All other review of systems reviewed and negative except as stated. Timing/Duration: 1 Week Severity/Quality: Cramping Location: Other (mid abdomen) Radiation: No Radiation Associated Symptoms: Denies Symptoms Allergies and Home Medications Allergies Coded Allergies: No Known Drug Allergies (Unverified , 11/12/12) Patient Home Medication List Home Medication List Reviewed: Yes Aspirin (Aspirin) 81 Mg Tab.chew, 81 MG PO DAILY, (Reported) Entered as Reported by: AMADO SOLORZANO on 02/09/15 0945 Atenolol (Atenolol) 25 Mg Tablet, 25 MG PO HS, (Reported) Entered as Reported by: POPEYE SALINAS on 05/11/20 0020 Gentamicin Sulfate (Gentak) 3.5 Gm Oint...g., 3.5 GM OP QID Prescribed by: PAIGE POLLARD on 05/12/20 0920 Oxycodone HCl (Oxycodone HCl) 10 Mg Tablet, 10 MG PO QID PRN for PAIN-MODERATE (5-7) Prescribed by: PAIGE POLLARD on 05/12/20 0919 Pramipexole Di-HCl (Pramipexole Dihydrochloride) 0.75 Mg Tablet, 0.75 MG PO BID, (Reported) Entered as Reported by: MINH ESQUIVEL on 05/11/20 1428 Tamsulosin HCl (Flomax) 0.4 Mg Cap, 0.4 MG PO HS, (Reported) Entered as Reported by: MINH ESQUIVEL on 05/11/20 142 Torsemide (Torsemide) 20 Mg Tablet, 40 MG PO DAILY, (Reported) Entered as Reported by: POPEYE SALINAS on 05/11/20 0030 Review of Systems Review of Systems Constitutional: see HPI EENTM: No Symptoms Reported Respiratory: SOA With Exertion (chronic) Cardiovascular: No Symptoms Reported Gastrointestinal: Abdominal Pain; Denies Diarrhea, Denies Nausea, Denies Vomiting Genitourinary: No Symptoms Reported Musculoskeletal: other (edema - chronic) Skin: no symptoms reported Psychiatric/Neurological: No Symptoms Reported All Other Systems Reviewed Negative Unless Noted: Yes Past Pukkhbr-Qekjyi-Lqgvya Hx Patient Social History Tobacco Use?: No Substance use?: No Alcohol Use?: No Pt feels they are or have been: No Immunizations Up To Date Tetanus Booster (TDap): Unknown PED Vaccines UTD: Yes First/Initial COVID19 Vaccinat: UNKNOWN Second COVID19 Vaccination Koffi: UNKNOWN Third COVID19 Vaccination Date: UNKNOWN Seasonal Allergies Seasonal Allergies: No Past Medical History Surgery/Hospitalization HX: PMH: END STAGE RENAL DISEASE, MUSCLE WEAKNESS, PRIMARY HTN, RLS, ATAXIC GAIT, TIA, BPH, Abdominal Respiratory: No Cardiac: Yes Hypertension Neurological: Yes Stroke Genitourinary: No Gastrointestinal: Yes (hx colon cancer/colon resection) Musculoskeletal: No (restless leg) Endocrine: No Cancer: Yes Skin, Colon Psychosocial: No Integumentary: Yes Blood Disorders: No Physical Exam Vital Signs Vital Signs - First Documented 06/03/21 08:29 Temp 35.7 Pulse 74 Resp 18 B/P (MAP) 113/70 (84) Pulse Ox 92 Capillary Refill : Less Than 3 Seconds Height/Weight/BMI Height: 5'9.00" Weight: 160lbs. oz. 72.501429kt; 25.00 BMI Method:Stated General Appearance: WD/WN, no apparent distress HEENT: PERRL/EOMI, other (appears adequately hydrated) Neck: full range of motion, normal inspection Respiratory: lungs clear, normal breath sounds, no respiratory distress, no accessory muscle use Cardiovascular: regular rate, rhythm Gastrointestinal: normal bowel sounds, non tender, soft, no organomegaly Extremities: normal range of motion, non-tender, normal inspection, pedal edema (1+ bilateral LE edema) Neurologic/Psychiatric: alert, normal mood/affect, oriented x 3 Skin: normal color, warm/dry Progress/Results/Core Measures Results/Orders Lab Results Laboratory Tests Test 06/03/21 08:43 Range/Units White Blood Count 7.6 4.3-11.0 10^3/uL Red Blood Count 3.17 L 4.30-5.52 10^6/uL Hemoglobin 10.0 L 13.3-17.7 g/dL Hematocrit 31 L 40-54 % Mean Corpuscular Volume 98 80-99 fL Mean Corpuscular Hemoglobin 32 25-34 pg Mean Corpuscular Hemoglobin Concent 32 32-36 g/dL Red Cell Distribution Width 16.2 H 10.0-14.5 % Platelet Count 187 130-400 10^3/uL Mean Platelet Volume 9.7 9.0-12.2 fL Immature Granulocyte % (Auto) 1 % Neutrophils (%) (Auto) 63 42-75 % Lymphocytes (%) (Auto) 20 12-44 % Monocytes (%) (Auto) 12 0-12 % Eosinophils (%) (Auto) 4 0-10 % Basophils (%) (Auto) 0 0-10 % Neutrophils # (Auto) 4.8 1.8-7.8 10^3/uL Lymphocytes # (Auto) 1.5 1.0-4.0 10^3/uL Monocytes # (Auto) 0.9 0.0-1.0 10^3/uL Eosinophils # (Auto) 0.3 0.0-0.3 10^3/uL Basophils # (Auto) 0.0 0.0-0.1 10^3/uL Immature Granulocyte # (Auto) 0.1 0.0-0.1 10^3/uL Sodium Level 139 135-145 MMOL/L Potassium Level 3.5 L 3.6-5.0 MMOL/L Chloride Level 97 L 98-107 MMOL/L Carbon Dioxide Level 26 21-32 MMOL/L Anion Gap 16 H 5-14 MMOL/L Blood Urea Nitrogen 48 H 7-18 MG/DL Creatinine 4.27 H 0.60-1.30 MG/DL Estimat Glomerular Filtration Rate 13 BUN/Creatinine Ratio 11 Glucose Level 94 70-105 MG/DL Calcium Level 8.7 8.5-10.1 MG/DL Corrected Calcium 9.1 8.5-10.1 MG/DL Total Bilirubin 0.5 0.1-1.0 MG/DL Aspartate Amino Transf (AST/SGOT) 16 5-34 U/L Alanine Aminotransferase (ALT/SGPT) 10 0-55 U/L Alkaline Phosphatase 85 40-136 U/L Total Protein 6.5 6.4-8.2 GM/DL Albumin 3.5 3.2-4.5 GM/DL My Orders Orders - MICHELLE DELEON MD Ed Iv/Invasive Line Start (06/03/21 08:56) Cbc With Automated Diff (06/03/21 08:56) Comprehensive Metabolic Panel (06/03/21 08:56) Abdomen/Kub 1view (06/03/21 10:51) Vital Signs/I&O 06/03/21 08:29 Temp 35.7 Pulse 74 Resp 18 B/P (MAP) 113/70 (84) Pulse Ox 92 Blood Pressure Mean: 84 Progress Progress Note #1: Time: 08:59 Progress Note Patient's abdominal exam is soft, currently nontender. Normoactive bowel sounds. Vital signs are stable. We will check some basic labs. We will hold off on imaging at the moment. He does not require anything for pain or discomfort. Progress Note #2: Time: 11:28 Progress Note Will send Mr Bedoya home, as labs look great and KUB (limited in lower visualization) looks like he may be a little constipated. He can have some tylenol for pain at the [place] and stool softeners vs dulcolax for abdominal discomfort. Return precautions - with fever, vomiting or worse pain return to [facility] for re-eval. F/U with Dr Pollard. No clinical or objective findings to warrant further labs or imaging at this time. All questions are sought and answered. Departure Impression Primary Impression: Abdominal pain Qualified Codes: R10.84 - Generalized abdominal pain Disposition: 01 HOME, SELF-CARE Condition: Stable Departure-Patient Inst. Decision time for Depature: 11:32 Referrals: PAIGE POLLARD MD (PCP/Family) Primary Care Physician Patient Instructions: Constipation, Adult (DC) Add. Discharge Instructions: Use Dulcolax suppository to help move more stools. Tylenol as needed for abdominal cramping every 6 hours. Return to the Emergency Department for any worsening pain, nausea with vomiting, fever over 100.4 or other emergent, concerning symptoms. Continue all your routine prescribed medication. Copy Copies To 1: PAIGE POLLARD MD, KATHRYN M MD Jun 03, 2021 08:59
[2021-06-03 09:03] LABS: BASOPHILS % (AUTO) 0 % (0-10); EOSINOPHILS # (AUTO) 0.3 10^3/uL (0.0-0.3); EOSINOPHILS % (AUTO) 4 % (0-10); HEMATOCRIT 31 % (40-54); LYMPHOCYTES # (AUTO) 1.5 10^3/uL (1.0-4.0); LYMPHOCYTES % (AUTO) 20 % (12-44); MEAN CORPUSCULAR HEMOGLOBIN 32 pg (25-34); MEAN CORPUSCULAR HGB CONC 32 g/dL (32-36); MEAN CORPUSCULAR VOLUME 98 fL (80-99); MEAN PLATELET VOLUME 9.7 fL (9.0-12.2); MONOCYTES # (AUTO) 0.9 10^3/uL (0.0-1.0); MONOCYTES % (AUTO) 12 % (0-12); NEUTROPHILS # (AUTO) 4.8 10^3/uL (1.8-7.8); NEUTROPHILS % (AUTO) 63 % (42-75); PLATELET COUNT 187 10^3/uL (130-400); WHITE BLOOD COUNT 7.6 10^3/uL (4.3-11.0)
[2021-06-03 09:16] LABS: ALBUMIN 3.5 GM/DL (3.2-4.5); BILIRUBIN,TOTAL 0.5 MG/DL (0.1-1.0); CALCIUM 8.7 MG/DL (8.5-10.1); CREATININE SERUM 4.27 MG/DL (0.60-1.30); POTASSIUM 3.5 MMOL/L (3.6-5.0); TOTAL PROTEIN 6.5 GM/DL (6.4-8.2)
--- NOTE | 2021-06-03 11:25 | Diagnostic Imaging Report ---
Single view of the lung bases and upper abdomen. INDICATION: Mid abdominal pain. FINDINGS: There are linear opacities in the right lung base likely reflecting atelectasis. There is no large effusion evident. The visualized loops of bowel are nonobstructed. No abnormal abdominal calcifications are evident. IMPRESSION: Unremarkable single view of the upper abdomen. Minimal right base atelectasis. Dictated by: Dictated on workstation # [id number]
[2021-06-03 12:14] VITALS: BP 94/50
== END 2021-06-03 12:14 | disposition home or self-care (01) ==
LOC: EDUNIT# 08:20 → ER 08:21
DX: R10.84 Generalized abdominal pain (principal); I12.0 Hypertensive chronic kidney disease with stage 5 chronic kidney disease or end stage renal disease; N18.6 End stage renal disease; Z85.038 Personal history of other malignant neoplasm of large intestine; Z86.73 Personal history of transient ischemic attack (TIA), and cerebral infarction without residual deficits; Z79.82 Long term (current) use of aspirin; Z79.899 Other long term (current) drug therapy
CPT/HCPCS: 36415; 74018; 80053; 85025

== ENCOUNTER → 2021-07-26 | Outpatient (CLI) | payer MEDICARE, MEDICAID ==
[~2021-07-26] VITALS: Ht 170 cm; Wt 75.0 kg
[~2021-07-26] MED LIST changes: +CATHETER FLUSH 10 ML SYR IVP PRN; +REGADENOSON 0.4 MG/5 ML SYR (LEXISCAN) IV ONE
[2021-07-26 13:57] VITALS: BP 100/55
--- NOTE | 2021-07-26 16:01 | Cardiology Stress Test Report ---
Stress Test Report Date of Procedure/Referring: Date of Procedure: Jul 26, 2021 PCP Suresh Bee MD Admitting Physician Sonal Pollard MD Indications: CAD Baseline Heart Rate: 70 Baseline Blood Pressure: Blood Pressure Systolic: 100 Blood Pressure Diastolic: 55 Baseline Vitals Vital Signs Date Time Temp Pulse Resp B/P (MAP) Pulse Ox O2 Delivery O2 Flow Rate FiO2 07/26/21 13:57 70 100/55 (70) 93 Baseline EKG: Baseline EKG: NSR Summary After explaining the procedure to the patient, he signed a consent and then brought to the stress nuclear laboratory. Patient received 0.4 mg Lexiscan for stress test, ECG, heart rate and blood pressure were monitored continuously. Resting and stress dose of radio tracer were injected, imaging was acquired and reviewed in short axis, horizontal long axis and vertical long axis views. TID: 0.95 SSS: 49 SDS: 7 EF: 38 1. Patient tolerated Lexiscan well 2. 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 Diffuse left ventricular hypokinesia more severe at the mid to apical anterior wall and true apex, EF 38% SURESH BEE MD Jul 26, 2021 16:01
== END ==
LOC: CARD 12:00
PROVIDERS: ATTEND Internal Medicine Cardiovascular Disease
DX: I11.9 Hypertensive heart disease without heart failure (principal); I34.0 Nonrheumatic mitral (valve) insufficiency; I25.10 Atherosclerotic heart disease of native coronary artery without angina pectoris
CPT/HCPCS: 78452; 93017; 93306; A9502

== ENCOUNTER 2021-07-28 05:36 | Emergency (ER) | payer MEDICARE, MEDICAID ==
[~2021-07-28] VITALS: Ht 172 cm; Wt 75.0 kg
[~2021-07-28 05:36] MED LIST changes: -CATHETER FLUSH 10 ML SYR IVP PRN; -REGADENOSON 0.4 MG/5 ML SYR (LEXISCAN) IV ONE
[2021-07-28 05:55] LABS: BASOPHILS % (AUTO) 1 % (0-10); EOSINOPHILS # (AUTO) 0.4 10^3/uL (0.0-0.3); EOSINOPHILS % (AUTO) 4 % (0-10); HEMATOCRIT 27 % (40-54); LYMPHOCYTES # (AUTO) 1.8 10^3/uL (1.0-4.0); LYMPHOCYTES % (AUTO) 21 % (12-44); MEAN CORPUSCULAR HEMOGLOBIN 33 pg (25-34); MEAN CORPUSCULAR HGB CONC 33 g/dL (32-36); MEAN CORPUSCULAR VOLUME 101 fL (80-99); MEAN PLATELET VOLUME 9.4 fL (9.0-12.2); MONOCYTES # (AUTO) 0.7 10^3/uL (0.0-1.0); MONOCYTES % (AUTO) 9 % (0-12); NEUTROPHILS # (AUTO) 5.6 10^3/uL (1.8-7.8); NEUTROPHILS % (AUTO) 65 % (42-75); PLATELET COUNT 169 10^3/uL (130-400); WHITE BLOOD COUNT 8.6 10^3/uL (4.3-11.0)
--- NOTE | 2021-07-28 05:56 | ED Fall/Injury ---
General Chief Complaint: Trauma-Non Activation Stated Complaint: FALL Nursing Triage Note: BROUGHT IN BY [facility] AFTER FALL FROM STANDING POSITION APPROX. 0100. PT C/O RIGHT UPPER ARM/SHOULDER, RIGHT CHEST, BILATERAL ANKLE PAIN. DENIES LOC. Source: patient (VERY POOR HISTORIAN AND GIVES INCONSISTENT INFORMATION), EMS, custodial records (DANYA ARENAS DO) History of Present Illness Date Seen by Provider: Jul 28, 2021 Time Seen by Provider: 05:39 Initial Comments PT ARRIVES VIA EMS FROM [facility] PT LIVES IN ASSISTED LIVING AT [facility] PT STATES AROUND 0100 HE WAS UP USING HIS WALKER AND SOMEHOW FELL BETWEEN THE LIVING ROOM AND THE BEDROOM-PT STATES HE "DOESN'T KNOW WHAT HAPPENED" PT DENIES HITTING HIS HEAD OR HAVING LOSS OF CONSCIOUSNES HAS PAIN IN MULTIPLE AREAS: RIGHT SHOULDER AND UPPER ARM BILATERAL ANKLES--LEFT > RIGHT MID AND UPPER BACK--RIGHT > LEFT RIGHT CHEST DENIES SHORTNESS OF BREATH --O2 SAT IS 86% ON ROOM AIR ON ARRIVAL--UP TO MID 90'S ON O2 AT 2L/NC--PT DOES NOT USE HOME O2 DENIES ABDOMINAL PAIN OR NAUSEA/VOMITING DENIES PARESTHESIAS OR MOTOR DEFICITS PT WITH HISTORY OF MULTIPLE /FREQUENT FALLS. PT HAS ESRD ON DIALYSIS--[id number]. HAS LEFT ARM AV-FISTULA. DENIES PAIN OR INJURY TO LEFT ARM. PT IS ON 81 MG ASPIRIN. Location Injury Occurred: ASSISSTED LIVING PCP: DR. PERRY (DANYA ARENAS DO) Allergies and Home Medications Allergies Coded Allergies: No Known Drug Allergies (Unverified , 11/12/12) Patient Home Medication List Home Medication List Reviewed: Yes (LU CASTANEDA MD) Aspirin (Aspirin) 81 Mg Tab.chew, 81 MG PO DAILY, (Reported) Entered as Reported by: AMADO SOLORZANO on 02/09/15 0945 Atenolol (Atenolol) 25 Mg Tablet, 25 MG PO HS, (Reported) Entered as Reported by: POPEYE SALINAS on 05/11/20 0020 Gentamicin Sulfate (Gentak) 3.5 Gm Oint...g., 3.5 GM OP QID Prescribed by: PAIGE PERRY on 05/12/20 0920 Oxycodone HCl (Oxycodone HCl) 10 Mg Tablet, 10 MG PO QID PRN for PAIN-MODERATE (5-7) Prescribed by: PAIGE PERRY on 05/12/20 0919 Pramipexole Di-HCl (Pramipexole Dihydrochloride) 0.75 Mg Tablet, 0.75 MG PO BID, (Reported) Entered as Reported by: MINH ESQUIVEL on 05/11/20 1428 Tamsulosin HCl (Flomax) 0.4 Mg Cap, 0.4 MG PO HS, (Reported) Entered as Reported by: MINH ESQUIVEL on 05/11/20 1428 Torsemide (Torsemide) 20 Mg Tablet, 40 MG PO DAILY, (Reported) Entered as Reported by: POPEYE SALINAS on 05/11/20 0030 Review of Systems Review of Systems Constitutional: no symptoms reported Eyes: No Symptoms Reported Ears, Nose, Mouth, Throat: no symptoms reported Respiratory: no symptoms reported Cardiovascular: see HPI Gastrointestinal: no symptoms reported Genitourinary: no symptoms reported Musculoskeletal: see HPI Skin: no symptoms reported Psychiatric/Neurological: No Symptoms Reported (DANYA ARENAS DO) Past Mccbhtr-Rvaojv-Kkidos Hx Patient Social History Tobacco Use?: No Substance use?: No Alcohol Use?: No Pt feels they are or have been: No (DANYA ARENAS DO) Immunizations Up To Date Tetanus Booster (TDap): Unknown PED Vaccines UTD: Yes First/Initial COVID19 Vaccinat: UNKNOWN Second COVID19 Vaccination Koffi: UNKNOWN Third COVID19 Vaccination Date: UNKNOWN (DANYA ARENAS DO) Seasonal Allergies Seasonal Allergies: No (DANYA ARENAS DO) Past Medical History Surgery/Hospitalization HX: PMH: END STAGE RENAL DISEASE, MUSCLE WEAKNESS, PRIMARY HTN, RLS, ATAXIC GAIT, TIA, BPH, Surgeries: Yes (COLON CANCER/BOWEL RESECTION) Abdominal, Bowel Surgery, Dialysis Respiratory: No Cardiac: Yes Hypertension Neurological: Yes (RESTLESS LEG; ATAXIC GAIT) Stroke, TIA Genitourinary: Yes (ESRD IN DIALYSIS) Benign Prostatic Hyperpl, Renal Failure, Dialysis Gastrointestinal: Yes (hx colon cancer/colon resection) Musculoskeletal: Yes (RESTLESS LEG; GAIT DISTURBANCE; FREQUENT FALLS) Endocrine: No Cancer: Yes Skin, Colon Did You Recieve Any Treatments: Yes What Type of Treatment Did You: Surgical Intervention Psychosocial: No Integumentary: No Blood Disorders: No (DANYA ARENAS DO) Family Medical History STRESS TEST 07/25/[address] MCDANIEL: 1. Patient tolerated Lexiscan well 2. 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 Diffuse left ventricular hypokinesia more severe at the mid to apical anterior wall and true apex, EF 38% (DANYA ARENAS DO) Physical Exam Vital Signs Vital Signs - First Documented (LU CASTANEDA MD) Vital Signs Capillary Refill : Less Than 3 Seconds (DANYA ARENAS DO) Height, Weight, BMI Height: 5'9.00" Weight: 160lbs. oz. 72.907821pb; 25.00 BMI Method:Stated General Appearance: WD/WN, no apparent distress HEENT: PERRL/EOMI Neck: non-tender, full range of motion, supple, normal inspection Cardiovascular: regular rate, rhythm, no murmur Respiratory: no respiratory distress, no accessory muscle use, other (MILD RIGHT ANTERIOR CHEST TENDERNESS.NO CREPITANCE, NO DEFORMITY, NO SUB Q AIR. ) Gastrointestinal: normal bowel sounds, soft, tenderness (EPIGASTRIC TENDERNESS WITH VENTRAL HERNIA) Back: other (MILD RIGHT UPPER BACK TENDERNESS. ) Extremities: normal capillary refill, other (RIGHT SHOULDER AND RIGHT UPPER ARM TENDERNESS. NO OBVIOUS DEFORMITY. DISTAL MOTOR/SENSORY/VASCULAR INTACT. LEFT UPPER ARM AV-FISTULA IS INTACT, NO BLEEDING OR TENDERNESS. NO TENDERNESS TO ANY PART OF OF LEFT ARM. BILATERAL ANKLE TENDERNESS--LEFT > RIGHT. NO EDEMA NOTED AT THIS TIME. ) Neurologic/Psychiatric: no motor/sensory deficits, alert, normal mood/affect, oriented x 3 (BUT POOR MEMORY) Skin: normal color, warm/dry, other (NO EXTERNAL EVIDENCE OF TRAUMA ANYWHERE NOTED AT THIS TIME. ) (DANYA ARENAS DO) Progress/Results/Core Measures Results/Orders Lab Results Laboratory Tests Test 07/28/21 05:46 Range/Units White Blood Count 8.6 4.3-11.0 10^3/uL Red Blood Count 2.71 L 4.30-5.52 10^6/uL Hemoglobin 9.0 L 13.3-17.7 g/dL Hematocrit 27 L 40-54 % Mean Corpuscular Volume 101 H 80-99 fL Mean Corpuscular Hemoglobin 33 25-34 pg Mean Corpuscular Hemoglobin Concent 33 32-36 g/dL Red Cell Distribution Width 14.0 10.0-14.5 % Platelet Count 169 130-400 10^3/uL Mean Platelet Volume 9.4 9.0-12.2 fL Immature Granulocyte % (Auto) 1 % Neutrophils (%) (Auto) 65 42-75 % Lymphocytes (%) (Auto) 21 12-44 % Monocytes (%) (Auto) 9 0-12 % Eosinophils (%) (Auto) 4 0-10 % Basophils (%) (Auto) 1 0-10 % Neutrophils # (Auto) 5.6 1.8-7.8 10^3/uL Lymphocytes # (Auto) 1.8 1.0-4.0 10^3/uL Monocytes # (Auto) 0.7 0.0-1.0 10^3/uL Eosinophils # (Auto) 0.4 H 0.0-0.3 10^3/uL Basophils # (Auto) 0.0 0.0-0.1 10^3/uL Immature Granulocyte # (Auto) 0.1 0.0-0.1 10^3/uL Sodium Level 136 135-145 MMOL/L Potassium Level 4.4 3.6-5.0 MMOL/L Chloride Level 97 L 98-107 MMOL/L Carbon Dioxide Level 23 21-32 MMOL/L Anion Gap 16 H 5-14 MMOL/L Blood Urea Nitrogen 52 H 7-18 MG/DL Creatinine 6.19 H 0.60-1.30 MG/DL Estimat Glomerular Filtration Rate 8 BUN/Creatinine Ratio 8 Glucose Level 90 70-105 MG/DL Calcium Level 8.8 8.5-10.1 MG/DL Corrected Calcium 9.2 8.5-10.1 MG/DL Total Bilirubin 0.5 0.1-1.0 MG/DL Aspartate Amino Transf (AST/SGOT) 15 5-34 U/L Alanine Aminotransferase (ALT/SGPT) 9 0-55 U/L Alkaline Phosphatase 73 40-136 U/L Total Protein 6.2 L 6.4-8.2 GM/DL Albumin 3.5 3.2-4.5 GM/DL (LU CASTANEDA MD) My Orders Orders - LU CASTANEDA MD Fentanyl Inj (Sublimaze Injection) (07/28/21 07:12) (LU CASTANEDA MD) Vital Signs/I&O 07/28/21 07/28/21 07/28/21 07/28/21 05:39 05:39 07:00 07:35 Temp 37.0 Pulse 78 73 94 Resp 16 18 18 B/P (MAP) 100/65 (77) 93/51 (65) 106/63 (77) Pulse Ox 96 93 95 O2 Delivery Room Air Nasal Cannula Nasal Cannula O2 Flow Rate 2.00 2.00 07/28/21 07/28/21 08:31 09:00 Temp 37.0 Pulse 76 76 Resp 18 18 B/P (MAP) 103/56 (72) 103/56 Pulse Ox 97 97 O2 Delivery Nasal Cannula Nasal Cannula O2 Flow Rate 2.00 2.00 (LU CASTANEDA MD) Blood Pressure Mean: 77 Progress Progress Note : Progress Note 0600--CARE TURNED OVER TO DR. CASTANEDA, ALL STUDIES PENDING. (DANYA ARENAS DO) Progress Note : Progress Note 0610: I have assumed care of the patient from Dr. Arenas pending labs and radiology. EKG reviewed. He did have recent cardiopulmonary stress test which does show hypokinesis areas of old infarct. EF was 38%. He is comfortable now except for right upper arm pain. We will evaluate with scans and x-ray as well as labs. No respiratory distress. Lungs are clear to auscultation bilateral. He is tender in the right upper arm. Answering questions appropriately and following commands. He is mentating well. Monitor patient. 0720: Radiology images and reports reviewed. Scapular fracture. Aspect of the body noted on CT shoulder x-ray. Lower anterior right rib fractures noted with hematoma. Patient is complaining of pain. Fentanyl 25 mcg IV ordered. I will discuss findings with trauma surgeon. Monitor patient. 0726: Given pain and fracture presentation, patient should be admitted although is due dialysis and we do not have that capability here. We will determine which center he typically goes to and call for possible transfer. Monitor patient. 0745: I have spoken with Dr. Rodgers, EM physician at [facility] in [facility] regarding transfer. He has accepted the patient in transfer ER to ER, for trauma concerns and dialysis. I did discuss transfer with the patient and he had requested [facility] and was appreciative of the transfer there. I have tried to make contact with his daughter but line is not in service currently. We will continue to try to notify family. They reside in [place]. Patient comfortable now with blood pressure 90s systolic after fentanyl. EMS notified and pending arrival for transfer. Patient agrees to plan. All films have been electronically sent to [facility] in [facility]. 0825: I was able to make contact with patient's daughter. half-way records had the wrong phone number for our records at the right phone number and we were able to talk with her. She appreciated the call. We did update custodial of long phone number. Pending ambulance transfer. Patient comfortable. (LU CASTANEDA MD) Initial ECG Impression Date: Jul 28, 2021 Initial ECG Impression Time: 05:54 Initial ECG Rate: 73 Initial ECG Rhythm: Normal Sinus Comment Sinus rhythm with borderline left axis deviation with no evidence of ST elevation IL. Right bundle branch block seen previously not noted now from 2020. Peaked T waves previously noted also not noted now. Interpreted by me. (LU CASTANEDA MD) Diagnostic Imaging Diagonstic Imaging: CT Plain Films/CT/US/NM/MRI: chest, abdomen, pelvis Comments [facility] [place] NAME: SHANNAN JEFFERSON [facility] REC#: [id number] PT STATUS: REG ER : 1935 PHYSICIAN: DANYA ARENAS DO ADMIT DATE: 07/28/21/ER Draft Date of Exam:07/28/21 CT CHEST/ABDOMEN/PELVIS WO PROCEDURE: CT chest, abdomen, and pelvis without contrast. TECHNIQUE: Multiple contiguous axial images were obtained through the chest, abdomen, and pelvis without the use of intravenous contrast. Auto Exposure Controls were utilized during the CT exam to meet ALARA standards for radiation dose reduction. INDICATION: Fall from standing. Right upper arm/shoulder pain and right chest pain with bilateral ankle pain. EXAMINATION: CT chest, abdomen and pelvis without contrast 07/28/2021. COMPARISON: 02/04/2020 FINDINGS: CHEST: Bibasilar dependent atelectasis versus mild infiltrates noted. Remaining lungs clear. There are very tiny bilateral pleural effusions. No pericardial effusion. There is no evidence for adenopathy. Atherosclerotic disease is seen along the aorta. There is questioned irregularity along the cranial border of the scapular body/spine. This is suspicious for fracture. Remaining visualized osseous structures within the chest intact. IMPRESSION: 1. Suspected right scapular fracture. 2. Bibasilar atelectasis versus mild infiltrate with tiny adjacent effusions. CT ABDOMEN AND PELVIS: The nonopacified abdominal viscera limited evaluation given the lack of contrast. Overlying the right lobe of the liver there is a focal soft tissue prominence which measures approximately 5.8 x 3.8 cm. This surrounds several of the right anterior inferior ribs. Irregularity along the anterior lower ribs is noted suggestive of fracture. The surrounding soft tissue density likely hematoma. Correlate clinically. This extends into the intraperitoneal aspect of the upper abdomen causing mild mass effect upon the adjacent right lobe of the liver. The liver itself grossly intact without contrast. No free fluid is seen adjacent to the liver. The gallbladder unremarkable. Spleen and pancreas unremarkable. Adrenal glands normal. Kidneys markedly atrophied consistent with chronic disease. Tiny nonobstructive stones noted. There are both left and right paracentral fat-containing anterior abdominal wall hernias. There is no ascites or free air. There are findings of constipation in the distal colon. Prostate gland slightly prominent. There is atherosclerotic disease. Osseous structures intact. IMPRESSION: 1. Large hypodensity overlying the right lobe of the liver predominantly centered along the anterior abdominal wall surrounding several right anterior rib fractures. This is most likely a large hematoma but clinical followup is recommended to assure resolution. This causes minimal mass effect upon the anterior aspect of the liver. 2. Abdominal viscera grossly intact on this noncontrast examination. Incidental findings otherwise noted as above. Dictated on workstation # [id number] Dict: 07/28/21 0631 Trans: 07/28/21 0649 [facility] [id number] Interpreted by: RACHEAL MARTIN MD Electronically signed by: Diagonstic Imaging: CT Plain Films/CT/US/NM/MRI: c-spine, head Comments [facility] [place], [place] NAME: SHANNAN JEFFERSON [facility] REC#: [id number] PT STATUS: REG ER : 1935 PHYSICIAN: DANYA ARENAS DO ADMIT DATE: 07/28/21/ER Draft Date of Exam:07/28/21 CT HEAD/CERVICAL SPINE WO PROCEDURE: CT head and CT cervical spine without contrast. TECHNIQUE: Multiple contiguous axial images were obtained through the brain and cervical spine without the use of intravenous contrast. Sagittal and coronal reformations through the cervical spine were then performed. Auto Exposure Controls were utilized during the CT exam to meet ALARA standards for radiation dose reduction. INDICATION: 86-year-old male injured in fall presents with headache and neck pain. Patient also has right upper arm shoulder pain, chest pain, bilateral ankle pain. COMPARISONS: None. CT head without contrast: FINDINGS: Midline structures are not displaced. There are senescent changes to the brain with involutional changes and generalized atrophy. There are background chronic areas of microvascular ischemic change. Domingo-white differentiation is maintained and there is no sulcal effacement. There are no abnormal extra-axial fluid collections or hemorrhage. Basilar cisterns appear normal. Sinuses, orbits and mastoid air cells are unremarkable. Bone windows show no calvarial changes. IMPRESSION: Senescent brain with involutional changes with some background chronic areas of microvascular ischemic change. Overall no acute findings identified by nonenhanced CT criteria. CT cervical spine with reconstructions: FINDINGS: Axial images in sagittal and coronal reconstructions of the cervical spine show moderate cervical spondylosis. There is multilevel hypertrophic facet changes. There is a grade 1 anterolisthesis of C2 on C3 which is felt to be degenerative in nature. Atlantoaxial degenerative joint disease with some loss of the predental space is seen. Degenerative joint disease is also seen more prominently at C5, C6 and C7. There is otherwise no evidence of acute fracture or acute subluxation seen. Visualized lung apices are clear. Superior mediastinum is unremarkable. Parapharyngeal and paraspinous soft tissues are also grossly unremarkable. There is some minimal calcific atherosclerosis in the right carotid bifurcation. IMPRESSION: Cervical spondylosis but no evidence of acute fracture or subluxation seen. Additional nonemergent findings as described above. Dictated on workstation # [id number] Dict: 07/28/21 0651 Trans: 07/28/21 0659 [id number] Interpreted by: CANDY CANALES MD Electronically signed by: Diagonstic Imaging: CT Plain Films/CT/US/NM/MRI: other Comments [facility] [place] [place] NAME: SHANNAN JEFFERSON [facility] REC#: [id number] PT STATUS: REG ER : 1935 PHYSICIAN: DANYA ARENAS DO ADMIT DATE: 07/28/21/ER Draft Date of Exam:07/28/21 CT THORACIC/LUMBAR SPINE WO PROCEDURE: CT thoracic and lumbar spine without contrast. TECHNIQUE: Multiple contiguous axial images were obtained through the thoracic and lumbar spine without the use of intravenous contrast. Sagittal and coronal reformations were then performed. All CT scans use one or more of the following dose optimizing techniques: automated exposure control, MA and/or KvP adjustment based on a patient size and exam type, or iterative reconstruction. INDICATION: Status post fall. Pain to the right shoulder and right aspect of the chest. EXAMINATION:: CT thoracic and lumbar spine 07/28/2021. FINDINGS: There is mild loss of height along the superior endplate at T12 with sclerosis and anterior spurring noted. This is age indeterminate. If there is focal pain, MRI recommended to evaluate for edema. Remaining vertebral body heights appear maintained. No subluxations. There is irregularity along the right scapular body towards the cranial aspect consistent with fracture. Intraabdominal and thoracic structures better evaluated on the separate CT chest, abdomen and pelvis. IMPRESSION: 1. Loss of height along the superior endplate at T2 which is age indeterminate. If there is focal pain, MRI recommended to evaluate for edema. 2. Right scapular fracture. CT LUMBAR SPINE: There is minimal loss of height along the superior endplate at L2 which could be chronic but if there is focal point tenderness MRI recommended to evaluate for edema. Remaining vertebral body heights appear maintained. There is degenerative change throughout the spine with bilateral facet hypertrophy throughout the spine. Intervertebral space narrowing and vacuum phenomenon noted at L4-L5 and L5-S1. There is mild irregularity along the left transverse process at L3. This is likely chronic. An old fracture of the left transverse process at L4 is also noted. IMPRESSION: 1. Minimal loss of height along the superior endplate at L2 which is likely old however if there is point tenderness MRI recommended to evaluate for edema. 2. Left transverse process fractures at L3 and L4 which appear chronic. Diffuse multilevel degenerative disease also noted. Dictated on workstation # [id number] Dict: 07/28/21 0641 Trans: 07/28/21 0654 [facility] [id number] Interpreted by: RACHEAL MARTIN MD Electronically signed by: Marcel Imaging: Xray Plain Films/CT/US/NM/MRI: chest Comments [facility] [place] NAME: SHANNAN JEFFERSON [facility] REC#: [id number] PT STATUS: REG ER : 1935 PHYSICIAN: DANYA ARENAS DO ADMIT DATE: 07/28/21/ER Draft Date of Exam:07/28/21 CHEST 1 VIEW, AP/PA ONLY INDICATION: Injured in fall presents with chest pain. COMPARISONS: 12/15/2020 FINDINGS: Single view chest shows normal heart, pulmonary vasculature, pleura and diaphragms with no focal opacities. Soft tissues and bony thorax are unremarkable. IMPRESSION: No acute cardiopulmonary changes. Dictated on workstation # [id number] Dict: 07/28/21 0705 Trans: 07/28/21 0708 [id number] Interpreted by: CANDY CANALES MD Electronically signed by: Marcel Imaging: Xray Plain Films/CT/US/NM/MRI: pelvis Comments [facility] [place] NAME: SHANNAN JE[facility]ERSON [facility] REC#: [id number] PT STATUS: REG ER : 1935 PHYSICIAN: DANYA ARENAS DO ADMIT DATE: 07/28/21/ER Draft Date of Exam:07/28/21 PELVIS INDICATION: Pelvic pain EXAMINATION: Pelvis 07/28/2021 Single view pelvis FINDINGS: There is no evidence for an acute fracture or dislocation. The joint spaces are well maintained. There is no significant soft tissue swelling. IMPRESSION: No acute process. Dictated on workstation # [id number] Dict: 07/28/21 0706 Trans: 07/28/21 0710 [facility] [id number] Interpreted by: RACHEAL MARTIN MD Electronically signed by: Diagonstic Imaging: Xray Plain Films/CT/US/NM/MRI: other Comments [facility]. [place] [place] NAME: SHANNAN JEFFERSON [facility] REC#: [id number] PT STATUS: REG ER : 1935 PHYSICIAN: DANYA ARENAS DO ADMIT DATE: 07/28/21/ER Draft Date of Exam:07/28/21 SHOULDER, RIGHT, 3 VIEWS INDICATION: Fall, shoulder pain. EXAMINATION: Right shoulder 07/28/2021 FINDINGS: 3 views of the shoulder. Correlation made to CT of the chest. The known scapular fracture is vaguely seen along the cranial border of the scapular body. The remaining osseous structures intact. No dislocations. Degenerative findings seen at the acromioclavicular joint. IMPRESSION: 1. Fracture of the cranial aspect of the scapula. Dictated on workstation # [id number] Dict: 07/28/21 0705 Trans: 07/28/21 07[facility] [id number] Interpreted by: RACHEAL MARTIN MD Electronically signed by: Diagonstic Imaging: Xray Plain Films/CT/US/NM/MRI: other Comments [facility] [place] NAME: SHANNAN JEFFERSON [facility] REC#: [id number] PT STATUS: REG ER : 1935 PHYSICIAN: DANYA ARENAS DO ADMIT DATE: 07/28/21/ER Draft Date of Exam:07/28/21 HUMERUS, RIGHT, 2 VIEWS INDICATION: Fall, pain. EXAMINATION: Right humerus 07/28/2021 FINDINGS: 2 views of the humerus. There are no fractures or dislocations within the humerus. A fracture of the scapular body is partially visualized. IMPRESSION: 1. Scapular fracture with the humerus intact. Dictated on workstation # [id number] Dict: 07/28/21 0706 Trans: 07/28/21 07[facility] [id number] Interpreted by: RACHEAL MARTIN MD Electronically signed by: Diagonstic Imaging: Xray Plain Films/CT/US/NM/MRI: ankle Comments [facility] [place] NAME: SHANNAN JEFFERSON [facility] REC#: [id number] PT STATUS: REG ER : 1935 PHYSICIAN: DANYA ARENAS DO ADMIT DATE: 07/28/21/ER Draft Date of Exam:07/28/21 ANKLE, BILATERAL, 3 VIEWS INDICATION: Fall, pain. EXAMINATION: Bilateral ankles 07/28/2021 FINDINGS: 3 views of each ankle. There are no acute fractures or dislocations on either side. There is spurring throughout the dorsum of the midfoot bilaterally. Ankle mortise and talar dome intact. Mild soft tissue swelling is seen bilaterally. IMPRESSION: 1. Chronic findings with minimal soft tissue swelling. No acute fractures. Dictated on workstation # [id number] Dict: 07/28/21 0707 Trans: 07/28/21 0709 [id number] Interpreted by: RACHEAL MARTIN MD Electronically signed by: (LU CASTANEDA MD) Departure Impression Primary Impression: Multiple fractures of ribs, right side, initial encounter for closed fracture Additional Impressions: Right scapula fracture Qualified Codes: S42.114A - Nondisplaced fracture of body of scapula, right shoulder, initial encounter for closed fracture End stage renal disease on dialysis Disposition: XF SHT-TRM HOSP Condition: Stable Transfer Transfer Reason: Exceeds level of care Time Spoke to Accepting Phy: 07:45 Transfer Facility: [facility], [place], Dr. Rodgers accepting. Method of Transfer: EMS (LU CASTANEDA MD) Departure-Patient Inst. Referrals: PAIGE PERRY MD (PCP/Family) Primary Care Physician DANYA ARENAS DO Jul 28, 2021 05:56 LU CASTANEDA MD Jul 28, 2021 06:42
[2021-07-28 06:08] LABS: ALBUMIN 3.5 GM/DL (3.2-4.5); POTASSIUM 4.4 MMOL/L (3.6-5.0)
[2021-07-28 06:10] LABS: CALCIUM 8.8 MG/DL (8.5-10.1)
[2021-07-28 06:11] LABS: TOTAL PROTEIN 6.2 GM/DL (6.4-8.2)
[2021-07-28 06:13] LABS: BILIRUBIN,TOTAL 0.5 MG/DL (0.1-1.0)
[2021-07-28 06:14] LABS: CREATININE SERUM 6.19 MG/DL (0.60-1.30)
--- NOTE | 2021-07-28 06:50 | Diagnostic Imaging Report ---
PROCEDURE: CT chest, abdomen, and pelvis without contrast. TECHNIQUE: Multiple contiguous axial images were obtained through the chest, abdomen, and pelvis without the use of intravenous contrast. Auto Exposure Controls were utilized during the CT exam to meet ALARA standards for radiation dose reduction. INDICATION: Fall from standing. Right upper arm/shoulder pain and right chest pain with bilateral ankle pain. EXAMINATION: CT chest, abdomen and pelvis without contrast 07/28/2021. COMPARISON: 02/04/2020 FINDINGS: CHEST: Bibasilar dependent atelectasis versus mild infiltrates noted. Remaining lungs clear. There are very tiny bilateral pleural effusions. No pericardial effusion. There is no evidence for adenopathy. Atherosclerotic disease is seen along the aorta. There is questioned irregularity along the cranial border of the scapular body/spine. This is suspicious for fracture. Remaining visualized osseous structures within the chest intact. IMPRESSION: 1. Suspected right scapular fracture. 2. Bibasilar atelectasis versus mild infiltrate with tiny adjacent effusions. CT ABDOMEN AND PELVIS: The nonopacified abdominal viscera limited evaluation given the lack of contrast. Overlying the right lobe of the liver there is a focal soft tissue prominence which measures approximately 5.8 x 3.8 cm. This surrounds several of the right anterior inferior ribs. Irregularity along the anterior lower ribs is noted suggestive of fracture. The surrounding soft tissue density likely hematoma. Correlate clinically. This extends into the intraperitoneal aspect of the upper abdomen causing mild mass effect upon the adjacent right lobe of the liver. The liver itself grossly intact without contrast. No free fluid is seen adjacent to the liver. The gallbladder unremarkable. Spleen and pancreas unremarkable. Adrenal glands normal. Kidneys markedly atrophied consistent with chronic disease. Tiny nonobstructive stones noted. There are both left and right paracentral fat-containing anterior abdominal wall hernias. There is no ascites or free air. There are findings of constipation in the distal colon. Prostate gland slightly prominent. There is atherosclerotic disease. Osseous structures intact. IMPRESSION: 1. Large hypodensity overlying the right lobe of the liver predominantly centered along the anterior abdominal wall surrounding several right anterior rib fractures. This is most likely a large hematoma but clinical followup is recommended to assure resolution. This causes minimal mass effect upon the anterior aspect of the liver. 2. Abdominal viscera grossly intact on this noncontrast examination. Incidental findings otherwise noted as above. Dictated by: Dictated on workstation # [id number]
--- NOTE | 2021-07-28 06:54 | Diagnostic Imaging Report ---
PROCEDURE: CT thoracic and lumbar spine without contrast. TECHNIQUE: Multiple contiguous axial images were obtained through the thoracic and lumbar spine without the use of intravenous contrast. Sagittal and coronal reformations were then performed. All CT scans use one or more of the following dose optimizing techniques: automated exposure control, MA and/or KvP adjustment based on a patient size and exam type, or iterative reconstruction. INDICATION: Status post fall. Pain to the right shoulder and right aspect of the chest. EXAMINATION:: CT thoracic and lumbar spine 07/28/2021. FINDINGS: There is mild loss of height along the superior endplate at T12 with sclerosis and anterior spurring noted. This is age indeterminate. If there is focal pain, MRI recommended to evaluate for edema. Remaining vertebral body heights appear maintained. No subluxations. There is irregularity along the right scapular body towards the cranial aspect consistent with fracture. Intraabdominal and thoracic structures better evaluated on the separate CT chest, abdomen and pelvis. IMPRESSION: 1. Loss of height along the superior endplate at T2 which is age indeterminate. If there is focal pain, MRI recommended to evaluate for edema. 2. Right scapular fracture. CT LUMBAR SPINE: There is minimal loss of height along the superior endplate at L2 which could be chronic but if there is focal point tenderness MRI recommended to evaluate for edema. Remaining vertebral body heights appear maintained. There is degenerative change throughout the spine with bilateral facet hypertrophy throughout the spine. Intervertebral space narrowing and vacuum phenomenon noted at L4-L5 and L5-S1. There is mild irregularity along the left transverse process at L3. This is likely chronic. An old fracture of the left transverse process at L4 is also noted. IMPRESSION: 1. Minimal loss of height along the superior endplate at L2 which is likely old however if there is point tenderness MRI recommended to evaluate for edema. 2. Left transverse process fractures at L3 and L4 which appear chronic. Diffuse multilevel degenerative disease also noted. Dictated by: Dictated on workstation # [id number]
--- NOTE | 2021-07-28 06:59 | Diagnostic Imaging Report ---
PROCEDURE: CT head and CT cervical spine without contrast. TECHNIQUE: Multiple contiguous axial images were obtained through the brain and cervical spine without the use of intravenous contrast. Sagittal and coronal reformations through the cervical spine were then performed. Auto Exposure Controls were utilized during the CT exam to meet ALARA standards for radiation dose reduction. INDICATION: 86-year-old male injured in fall presents with headache and neck pain. Patient also has right upper arm shoulder pain, chest pain, bilateral ankle pain. COMPARISONS: None. CT head without contrast: FINDINGS: Midline structures are not displaced. There are senescent changes to the brain with involutional changes and generalized atrophy. There are background chronic areas of microvascular ischemic change. Domingo-white differentiation is maintained and there is no sulcal effacement. There are no abnormal extra-axial fluid collections or hemorrhage. Basilar cisterns appear normal. Sinuses, orbits and mastoid air cells are unremarkable. Bone windows show no calvarial changes. IMPRESSION: Senescent brain with involutional changes with some background chronic areas of microvascular ischemic change. Overall no acute findings identified by nonenhanced CT criteria. CT cervical spine with reconstructions: FINDINGS: Axial images in sagittal and coronal reconstructions of the cervical spine show moderate cervical spondylosis. There is multilevel hypertrophic facet changes. There is a grade 1 anterolisthesis of C2 on C3 which is felt to be degenerative in nature. Atlantoaxial degenerative joint disease with some loss of the predental space is seen. Degenerative joint disease is also seen more prominently at C5, C6 and C7. There is otherwise no evidence of acute fracture or acute subluxation seen. Visualized lung apices are clear. Superior mediastinum is unremarkable. Parapharyngeal and paraspinous soft tissues are also grossly unremarkable. There is some minimal calcific atherosclerosis in the right carotid bifurcation. IMPRESSION: Cervical spondylosis but no evidence of acute fracture or subluxation seen. Additional nonemergent findings as described above. Dictated by: Dictated on workstation # [id number]
--- NOTE | 2021-07-28 07:09 | Diagnostic Imaging Report ---
INDICATION: Fall, pain. EXAMINATION: Bilateral ankles 07/28/2021 FINDINGS: 3 views of each ankle. There are no acute fractures or dislocations on either side. There is spurring throughout the dorsum of the midfoot bilaterally. Ankle mortise and talar dome intact. Mild soft tissue swelling is seen bilaterally. IMPRESSION: 1. Chronic findings with minimal soft tissue swelling. No acute fractures. Dictated by: Dictated on workstation # [id number]
--- NOTE | 2021-07-28 07:09 | Diagnostic Imaging Report ---
INDICATION: Injured in fall presents with chest pain. COMPARISONS: 12/15/2020 FINDINGS: Single view chest shows normal heart, pulmonary vasculature, pleura and diaphragms with no focal opacities. Soft tissues and bony thorax are unremarkable. IMPRESSION: No acute cardiopulmonary changes. Dictated by: Dictated on workstation # [id number]
--- NOTE | 2021-07-28 07:10 | Diagnostic Imaging Report ---
INDICATION: Fall, shoulder pain. EXAMINATION: Right shoulder 07/28/2021 FINDINGS: 3 views of the shoulder. Correlation made to CT of the chest. The known scapular fracture is vaguely seen along the cranial border of the scapular body. The remaining osseous structures intact. No dislocations. Degenerative findings seen at the acromioclavicular joint. IMPRESSION: 1. Fracture of the cranial aspect of the scapula. Dictated by: Dictated on workstation # [id number]
--- NOTE | 2021-07-28 07:10 | Diagnostic Imaging Report ---
INDICATION: Fall, pain. EXAMINATION: Right humerus 07/28/2021 FINDINGS: 2 views of the humerus. There are no fractures or dislocations within the humerus. A fracture of the scapular body is partially visualized. IMPRESSION: 1. Scapular fracture with the humerus intact. Dictated by: Dictated on workstation # [id number]
--- NOTE | 2021-07-28 07:10 | Diagnostic Imaging Report ---
INDICATION: Pelvic pain EXAMINATION: Pelvis 07/28/2021 Single view pelvis FINDINGS: There is no evidence for an acute fracture or dislocation. The joint spaces are well maintained. There is no significant soft tissue swelling. IMPRESSION: No acute process. Dictated by: Dictated on workstation # [id number]
[2021-07-28] MEDS ORDERED: fentaNYL INJ 100 MCG/2 ML AMP IVP STA (07:12)
[2021-07-28 09:00] VITALS: BP 103/56
== END 2021-07-28 09:02 | disposition short-term general hospital (02) ==
LOC: EDUNIT# 05:36 → ER 05:38
DX: S22.41XA Multiple fractures of ribs, right side, initial encounter for closed fracture (principal); S42.114A Nondisplaced fracture of body of scapula, right shoulder, initial encounter for closed fracture; I12.0 Hypertensive chronic kidney disease with stage 5 chronic kidney disease or end stage renal disease; N18.6 End stage renal disease; M25.561 Pain in right knee; M25.562 Pain in left knee; M25.571 Pain in right ankle and joints of right foot; M25.572 Pain in left ankle and joints of left foot; K43.9 Ventral hernia without obstruction or gangrene; M54.9 Dorsalgia, unspecified; Z99.2 Dependence on renal dialysis; Z79.82 Long term (current) use of aspirin; W19.XXXA Unspecified fall, initial encounter; Y92.129 Unspecified place in nursing home as the place of occurrence of the external cause
CPT/HCPCS: 36415; 70450; 71045; 71250; 72125; 72128; 72131; 72170; 73030; 73060; 74176; 80053; 85025; 93005; 93041

== ENCOUNTER 2021-09-07 14:00 | Day surgery (SDC) | payer MEDICARE, MEDICAID ==
[~2021-09-07] VITALS: Ht 175.3 cm; Wt 73.5 kg
[2021-09-07] MEDS ORDERED: NS IV 1000 ML 1,000 ML ONE (14:07)
[2021-09-07] MEDS ORDERED: HEParin (CATH LAB) 1,000 ML IV ONE (14:07)
[2021-09-07] MEDS ORDERED: LIDOCAINE 1% INJ 20 ML VIAL ONE (14:07)
[2021-09-07] MEDS ORDERED: NS IV 1000 ML 1,000 ML IV SCH ×2 (14:15→16:45)
[2021-09-07 14:34] VITALS: BP 113/70
--- NOTE | 2021-09-07 14:42 | Diagnostic Imaging Report ---
INDICATION: cp abn stress pvd abn anita left leg pain COMPARISON: 07/28/2021. FINDINGS: Single frontal view of the chest demonstrates normal heart size and pulmonary vascularity. The lungs are well aerated and clear. No large pleural effusion or pneumothorax is seen. The visualized osseous structures show no acute abnormalities. IMPRESSION: 1. No acute cardiopulmonary process. Dictated by: Dictated on workstation # [id number]
[2021-09-07 14:55] LABS: BILIRUBIN,URINE NEGATIVE (NEGATIVE); CLARITY,URINE CLEAR; COLOR,URINE YELLOW; GLUCOSE, URINE (UA) NEGATIVE (NEGATIVE); KETONES,URINE NEGATIVE (NEGATIVE); LEUKOCYTE ESTERASE ,URINE 3+ (NEGATIVE); NITRITE,URINE NEGATIVE (NEGATIVE); PROTEIN,URINE 2+ (NEGATIVE)
[2021-09-07 15:01] LABS: HEMATOCRIT 30 % (40-54); HEMOGLOBIN 9.6 g/dL (13.3-17.7); MEAN CORPUSCULAR HEMOGLOBIN 33 pg (25-34); MEAN CORPUSCULAR HGB CONC 32 g/dL (32-36); MEAN CORPUSCULAR VOLUME 101 fL (80-99); MEAN PLATELET VOLUME 9.7 fL (9.0-12.2); PLATELET COUNT 228 10^3/uL (130-400); WHITE BLOOD COUNT 6.5 10^3/uL (4.3-11.0)
[2021-09-07 15:07] LABS: BACTERIA,URINE LARGE /HPF; WBC,URINE TNTC /HPF
[2021-09-07] MEDS ORDERED: UBID100T7 PO (15:18)
[2021-09-07] MEDS ORDERED: FERR-65 PO (15:18)
[2021-09-07] MEDS ORDERED: GABA300C PO (15:18)
[2021-09-07] MEDS ORDERED: VITA100033 PO (15:18)
[2021-09-07] MEDS ORDERED: ACET-168 PO (15:18)
[2021-09-07] MEDS ORDERED: FLAX10004 PO (15:18)
[2021-09-07] MEDS ORDERED: CALC0.253 PO (15:18)
[2021-09-07] MEDS ORDERED: ASCO-262 PO (15:18)
[2021-09-07] MEDS ORDERED: ATOR20TA66 PO (15:18)
[2021-09-07] MEDS ORDERED: MIDO10TA PO (15:18)
[2021-09-07] MEDS ORDERED: CYAN100088 PO (15:18)
[2021-09-07 15:20] LABS: BILIRUBIN,TOTAL 0.6 MG/DL (0.1-1.0); CALCIUM 9.2 MG/DL (8.5-10.1); CREATININE SERUM 5.23 MG/DL (0.60-1.30); POTASSIUM 4.3 MMOL/L (3.6-5.0); TOTAL PROTEIN 6.7 GM/DL (6.4-8.2)
[2021-09-07 15:30] LABS: PROTHROMBIN TIME PATIENT 13.8 SEC (12.2-14.7)
[2021-09-07] MEDS ORDERED: fentaNYL INJ 100 MCG/2 ML AMP ONE (15:42)
[2021-09-07] MEDS ORDERED: MIDAZOLAM 5 MG/5 ML (VERSED) VIAL ONE (15:42)
--- NOTE | 2021-09-07 15:43 | Conscious Sedation/ASA ---
Conscious Sedation Pre-Proced Time 15:43 ASA Score 3 For ASA 3 and 4: Consider anesthesia and medical clearance. Also, for patients with a history of failed moderate sedation consider anesthesia. Airway Lungs Heart ASA score ASA 1: a normal healthy patient ASA 2: a patient with a mild systemic disease (mid diabetes, controlled hypertension, obesity ASA 3: a patient with a severe systemic disease that limits activity (angina, COPD, prior Myocardial infarction) ASA 4: a patient with an incapacitating disease that is a constant threat to life (CHF, renal failure) ASA 5: a moribund patient not expected to survive 24 hrs. (ruptured aneurysm) ASA 6: a declared brain- patient whose organs are being harvested. For emergent operations, add the letter E after the classification Mallampati Classification Grade 3 Sedation Plan Analgesia, Amnesia, Plan communicated to team members, Discussed options with patient/fam, Discussed risks with patient/fam The patient is an appropriate candidate to undergo the planned procedure, sedation, and anesthesia. The patient immediately re-assessed prior to indication. SURESH MCDANIEL MD September 07, 2021 15:43
--- NOTE | 2021-09-07 16:36 | Discharge Inst-Post CATH ---
Discharge Inst-CATH/EP Problems Reviewed?: Yes Post Cardiac Cath/EP D/C Inst Follow Up/Plan Appointment with Dr. Bee's office in 4 weeks <b>CARDIAC CATH/EP PROCEDURE DISCHARGE INSTRUCTIONS</b> ACTIVITY * Go Home directly and rest. * Limit activity of the leg (or wrist if it was used) for 7 days including aerobics, swimming, jogging, bicycling, etc. * Restrict stair-climbing for 7 days if possible, if not, climb up with your non-cath leg, then bring together on the same step. * Avoid lifting, pushing, pulling or excessive movement of the affected extremity for 7 days. * Customary sexual activity may be resumed after 2 days-use caution not to use a position that strains or causes pain to the affected extremity. * No driving for 24 hours. * NO SMOKING. * Avoid straining for bowel movements for 7 days. * Gentle walking on level ground is allowed. * Returning to work will depend on the type of procedure and the results. Your doctor will discuss this with you. CALL YOUR DOCTOR FOR ANY OF THE FOLLOWING: *If bleeding from the puncture site occurs- Apply gentle pressure to site with clean cloth and call your doctor or EMS. * If a knot or lump forms under the skin, increases in size, or causes pain. * If bruising appears to be worsening or moving further down your leg instead of disappearing. * Temperature above 101 F. CARE OF YOUR GROIN INCISION; * Bruising or purple discoloration of the skin near the puncture site is common. * You may shower only, no bathtub bathing for 5 days. Be careful to avoid slipping as your leg may feel stiff. * If a closure device was used on your femoral artery, please see the attached guide regarding care of the device and your leg. * Leave dressing on FOR 24 hours. CARE OF YOUR WRIST INCISION; * Bruising or purple discoloration of the skin near the puncture site is common. * You may shower. * DO NOT submerge wrist. * Leave dressing on FOR 24 hours. SURESH BEE MD September 07, 2021 16:36
--- NOTE | 2021-09-07 16:42 | Cardiac Cath Report ---
Cardiac Cath Report Physician (s)/Optician Apprentice Dispensing (s) Physician SURESH MCDANIEL MD Pre-Procedure Diagnosis Pre-Procedure Diagnosis: Coronary artery disease, peripheral arterial disease Post-Procedure Note Procedure Start Date: September 07, 2021 Name of Procedure: Left heart catheterization Bilateral lower extremities runoff Second order Additional imaging x2 Findings/Procedure Note PROCEDURE NOTE: 86 years old gentleman with history of coronary artery disease, patient is on dialysis for end-stage kidney disease, has been having weight loss, has history of colon cancer. Had an abnormal stress test and has been having increasing claudication pain in his lower extremities. Patient had an abnormal stress test and abnormal GAMALIEL and scheduled for peripheral angiogram and coronary angiogram. After explaining the procedure to the patient, all pros and cons were explained, all questions were answered. The patient signed the consent and then he was placed on the cardiac catheterization laboratory. Groin was prepped SL fashion local anesthesia was used. Sheath placed in the right femoral artery, [place] right and left catheter were advanced to the right and left coronary system, [place] right catheter prolapsed to the left ventricular cavity, pressure was measured, pullback LV to aorta was done. I was unable to cross over with the lower extremities with a [place] right or the rim catheter, I was able to use UF catheter and crossed over and advanced straight catheter to the common femoral artery. I did runoff to the leg after pulling the catheter back to the common iliac artery. Then I did the DSA imaging to the trifurcation of the left leg and the catheter was removed and I did runoff to the right leg through to its sheath and repeated DSA to the trifurcation. At the end of the procedure the sheath was removed. Closure device was deployed FINDINGS: Hemodynamics LV 89/11, end-diastolic pressure of 11 Aorta 84/42 mean of 61 ANATOMY: Left Main is free of obstructive disease Left Anterior Descending is totally occluded proximally Left Circumflex is moderate in size, no obstructive disease, the first obtuse marginal branch/ramus intermedius branch has severe proximal stenosis Right Coronary Artery is dominant artery with severe proximal stenosis LV Gram was not done, pressure was measured Left lower extremity runoff: Left common iliac artery and common femoral artery has mild disease, the left SFA has mild to moderate disease, left popliteal artery is totally occluded and reconstructed the tibioperoneal trunk by collater als. Anterior tibial artery is occluded proximally the posterior tibial artery is occluded and the peroneal artery is patent by collaterals. Right lower extremity: The right common femoral artery has mild disease, right SFA has mild disease, severe stenosis at the right tibioperoneal trunk, occluded anterior tibial artery, severe stenosis in the peroneal artery, mild disease in the posterior tibial artery CONCLUSION: 1. Total occlusion of the LAD that is not receiving any collateral with total infarction of the anterior wall. 2. Severe proximal stenosis in the high obtuse marginal/ramus intermedius branch 3. Severe proximal stenosis and a dominant right coronary artery 4. Total occlusion of the tibioperoneal trunk on the left reconstructed peroneal artery by collateral with total occlusion of the anterior tibial artery 5. Severe stenosis of the tibioperoneal trunk on the right with occluded anterior tibial artery and severe disease in the peroneal artery DISCUSSION AND RECOMMENDATION: Patient has complex coronary anatomy, would require stenting of the right coronary artery and obtuse marginal branch, complex intervention on his lower extremities. I would recommend referring him to a tertiary care center with acute dialysis for his complex procedure. Anesthesia Type: Conscious Sedation Estimated blood loss (mL): 10 ml Contrast Amount: 25 ml Total Radiation Dose: 398 mGy Post-Procedure Diagnosis Post-operative diagnosis: Coronary artery disease Peripheral arterial disease Hypertension Hyperlipidemia SURESH MCDANIEL MD September 07, 2021 16:42
[2021-09-07] MEDS ORDERED: PATIENT MAY USE OWN MEDS, ALL PO SCH (16:45)
[2021-09-07 20:47] VITALS: BP 116/72
== END 2021-09-07 21:04 ==
LOC: CATH 14:00 → CSD 17:36 → CATH 21:04
PROVIDERS: ATTEND Internal Medicine Cardiovascular Disease
DX: I25.10 Atherosclerotic heart disease of native coronary artery without angina pectoris (principal); I70.92 Chronic total occlusion of artery of the extremities; I95.9 Hypotension, unspecified; I65.23 Occlusion and stenosis of bilateral carotid arteries; G47.33 Obstructive sleep apnea (adult) (pediatric); E78.2 Mixed hyperlipidemia; N18.6 End stage renal disease; I50.22 Chronic systolic (congestive) heart failure; Z85.038 Personal history of other malignant neoplasm of large intestine; Z99.2 Dependence on renal dialysis; Z87.891 Personal history of nicotine dependence; Z79.899 Other long term (current) drug therapy
CPT/HCPCS: 36246; 36248; 71045; 75716; 80053; 80061; 81000; 85027; 85610; 85730; 87081; 87088; 93005; 93458; C1760; C1769; C1887; C1894; 36415

== ENCOUNTER → 2021-11-09 | Outpatient (CLI) | payer MEDICARE, MEDICAID ==
[~2021-11-09] MED LIST changes: +ACET-168 PO; +ASCO-262 PO; +ATOR20TA66 PO; +CALC0.253 PO; +CYAN100088 PO; +FERR-65 PO; +FLAX10004 PO; +GABA300C PO; +MIDO10TA PO; +UBID100T7 PO; +VITA100033 PO
--- NOTE | 2021-11-09 14:49 | Diagnostic Imaging Report ---
INDICATION: Chest wall pain. History of back fracture COMPARISON: 09/07/2021 FINDINGS: Frontal radiographic view of the chest shows normal cardiac silhouette and pulmonary vasculature. Lungs are clear. There is no focal consolidation, large effusion, no pneumothorax. Multiple radiographic views of the bilateral ribs were also obtained. No healing or displaced rib fractures are seen on either side. No other gross acute osseous abnormality is identified. IMPRESSION: 1. No healing or displaced rib fractures are seen on either side. 2. No other acute cardiopulmonary process. Dictated by: Dictated on workstation # [id number]
== END ==
LOC: RAD 14:19
PROVIDERS: ATTEND Nurse Practitioner Family
DX: R07.89 Other chest pain (principal); Z87.81 Personal history of (healed) traumatic fracture
CPT/HCPCS: 71110

== ENCOUNTER 2021-11-17 18:49 | Emergency (ER) | payer MEDICARE, MEDICAID ==
[~2021-11-17] VITALS: Ht 173 cm; Wt 74.0 kg
[2021-11-17 19:08] LABS: BASOPHILS % (AUTO) 1 % (0-10); EOSINOPHILS # (AUTO) 0.4 10^3/uL (0.0-0.3); EOSINOPHILS % (AUTO) 5 % (0-10); HEMATOCRIT 33 % (40-54); HEMOGLOBIN 10.4 g/dL (13.3-17.7); LYMPHOCYTES # (AUTO) 1.3 10^3/uL (1.0-4.0); LYMPHOCYTES % (AUTO) 17 % (12-44); MEAN CORPUSCULAR HEMOGLOBIN 32 pg (25-34); MEAN CORPUSCULAR HGB CONC 32 g/dL (32-36); MEAN CORPUSCULAR VOLUME 101 fL (80-99); MONOCYTES # (AUTO) 0.6 10^3/uL (0.0-1.0); MONOCYTES % (AUTO) 8 % (0-12); NEUTROPHILS # (AUTO) 5.2 10^3/uL (1.8-7.8); NEUTROPHILS % (AUTO) 69 % (42-75); PLATELET COUNT 256 10^3/uL (130-400); WHITE BLOOD COUNT 7.6 10^3/uL (4.3-11.0)
[2021-11-17 19:24] LABS: ALBUMIN 3.6 GM/DL (3.2-4.5)
[2021-11-17 19:25] LABS: POTASSIUM 3.9 MMOL/L (3.6-5.0)
[2021-11-17 19:27] LABS: TOTAL PROTEIN 6.3 GM/DL (6.4-8.2)
[2021-11-17 19:29] LABS: BILIRUBIN,TOTAL 0.4 MG/DL (0.1-1.0)
[2021-11-17 19:30] LABS: CREATININE SERUM 3.69 MG/DL (0.60-1.30)
--- NOTE | 2021-11-17 19:30 | ED General ---
General Chief Complaint: Chest Wall Stated Complaint: RIB PAIN Source of Information: Patient (LIMITED HISTORIAN), EMS, Penitentiary Records History of Present Illness Date Seen by Provider: Nov 17, 2021 Time Seen by Provider: 18:54 Initial Comments PT ARRIVES VIA EMS FROM [facility] C/O RIGHT RIB PAIN THIS IS ONGOING PAIN SINCE HE FELL AND BROKE RIGHT RIBS AND RIGHT SCAPULA IN [place] AND IS NO DIFFERENT TODAY WAS REPORTED TO EMS BY ALF STAFF THAT DR. PERRY SAW HIM AND PRESCRIBED PAIN MEDICATION 2 DAYS AGO, BUT ON REVIEW OF ALF MEDICATION LIST, AND PER MED RECONCILIATION, THERE ARE NO NEW MEDICATIONS LISTED. PT DOES HAVE OXYCODONE AND GABAPENTIN PRESCRIBED PT HAS NO IDEA WHEN OR IF HE HAS HAD PAIN MEDICATION PT HAD OUTPATIENT RIB XRAYS DONE ON 11/09/21 WHICH DID NOT REVEAL ANY HEALING OR DISPLACED RIB FRACTURES OR ANY ACUTE PROCESS. NO SHORTNESS OF BREATH NO COUGH NO REPORTED FEVER NO NAUSEA/VOMITING PCP: DR. PERRY Allergies and Home Medications Allergies Coded Allergies: No Known Drug Allergies (Unverified , 11/12/12) Patient Home Medication List Acetaminophen (Acetaminophen Extra Strength) 500 Mg Tablet, 500 MG PO QID, (Reported) Entered as Reported by: MILENA ASHBY on 09/07/211517 Ascorbate Calcium (Vitamin C) 500 Mg Tablet, 500 MG PO DAILY, (Reported) Entered as Reported by: MILENA ASHBY on 09/07/211517 Aspirin (Aspirin) 81 Mg Tab.chew, 81 MG PO DAILY, (Reported) Entered as Reported by: AMADO SOLORZANO on 02/09/15 0945 Atorvastatin Calcium (Atorvastatin Calcium) 20 Mg Tablet, 20 MG PO DAILY, (R eported) Entered as Reported by: MILENA ASHBY on 09/07/211517 Calcitriol (Calcitriol) 0.25 Mcg Capsule, 0.25 MCG PO DAILY, (Reported) Entered as Reported by: MILENA ASHBY on 09/07/211517 Cyanocobalamin (Vitamin B-12) (B-12) 1,000 Mcg Tablet, 1,000 MCG PO DAILY, (Reported) Entered as Reported by: MILENA ASHBY on 09/07/211517 Ferrous Sulfate (Feosol) 325 Mg (65 Mg Iron) Tablet, 325 MG PO DAILY, (Reported) Entered as Reported by: MILENA ASHBY on 09/07/21 151 Flaxseed Oil (Flaxseed Oil) 1,000 Mg Capsule, 1,000 MG PO DAILY, (Reported) Entered as Reported by: MILENA ASHBY on 09/07/211517 Gabapentin (Neurontin) 300 Mg Capsule, 300 MG PO DAILY, (Reported) Entered as Reported by: MILENA ASHBY on 09/07/211517 Midodrine HCl (Midodrine HCl) 10 Mg Tablet, 10 MG PO TID, (Reported) Entered as Reported by: MILENA ASHBY on 09/07/211517 Tamsulosin HCl (Flomax) 0.4 Mg Cap, 0.4 MG PO HS, (Reported) Entered as Reported by: MINH ESQUIVEL on 05/11/20 1428 Ubidecarenone (Coenzyme Q10) 100 Mg Tablet, 100 MG PO DAILY, (Reported) Entered as Reported by: MILENA ASHBY on 09/07/211517 Vitamin E Mixed (Vitamin E) 1,000 Unit Capsule, 1,000 UNIT PO DAILY, (Reported) Entered as Reported by: MILENA ASHBY on 09/07/211517 Review of Systems Review of Systems Constitutional: no symptoms reported Respiratory: no symptoms reported Cardiovascular: see HPI Gastrointestinal: no symptoms reported Genitourinary: no symptoms reported Musculoskeletal: see HPI Skin: no symptoms reported Psychiatric/Neurological: No Symptoms Reported Hematologic/Lymphatic: No Symptoms Reported Past [id number] Hx Patient Social History Tobacco Use?: No Use of E-Cig and/or Vaping dev: No Substance use?: No Alcohol Use?: No Pt feels they are or have been: No Immunizations Up To Date Tetanus Booster (TDap): Unknown PED Vaccines UTD: Yes First/Initial COVID19 Vaccinat: UNKNOWN Second COVID19 Vaccination Koffi: UNKNOWN Third COVID19 Vaccination Date: UNKNOWN Seasonal Allergies Seasonal Allergies: No Past Medical History Surgery/Hospitalization HX: PMH: END STAGE RENAL DISEASE, MUSCLE WEAKNESS, PRIMARY HTN, RLS, ATAXIC GAIT, TIA, BPH, Surgeries: Yes (COLON CANCER/BOWEL RESECTION) Abdominal, Bowel Surgery, Dialysis Respiratory: No Sleep Apnea Currently Using CPAP: No Cardiac: Yes Hypertension Neurological: Yes (RESTLESS LEG; ATAXIC GAIT) Stroke, TIA 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 MCDANIEL: 1. Patient tolerated Lexiscan well 2. 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 Diffuse left ventricular hypokinesia more severe at the mid to apical anterior wall and true apex, EF 38% Physical Exam Vital Signs Vital Signs - First Documented 11/17/21 18:52 Temp 37.0 Pulse 74 Resp 16 B/P (MAP) 127/77 (94) Capillary Refill : Height, Weight, BMI Height: 5'9.00" Weight: 160lbs. oz. 72.479654yt; 23.91 BMI Method:Stated General Appearance: No Apparent Distress, WD/WN, Other (LAYING OUTSTRETCHED. DOES NOT APPEAR TO BE IN ANY DISCOMFORT OR DISTRESS) Neck: Non Tender Respiratory: Normal Breath Sounds, No Accessory Muscle Use, No Respiratory Distress, Other (TENDERNESS TO RIGHT LOWER RIBS--ANTERIOR/POSTERIOR/LATERALLY. PT HAS AN OVER THE COUNTER TYPE LIDOCAINE PATCH IN PLACE IN THIS AREA. THERE IS NO RASH OR ANY SKIN ABNORMALITY NOTED. ) Cardiovascular: Regular Rate, Rhythm, No JVD, No Murmur Gastrointestinal: Non Tender, Soft Back: CVA Tenderness (R) Extremity: Pedal Edema (1+ EDEMA WITH CHRONIC VENOUS STASIS CHANGES/MILD ERYTHEMA TO BILATERAL LOWER LEGS) Neurologic/Psychiatric: Alert, Oriented x3, Normal Mood/Affect Skin: Normal Color, Warm/Dry Progress/Results/Core Measures Suspected Sepsis SIRS Temperature: Pulse: Respiratory Rate: Laboratory Tests 11/17/21 19:02: White Blood Count 7.6 Blood Pressure / Mean: Laboratory Tests 11/17/21 19:02: Creatinine 3.69H, Platelet Count 256, Total Bilirubin 0.4 Results/Orders Lab Results Laboratory Tests Test 11/17/21 19:02 Range/Units White Blood Count 7.6 4.3-11.0 10^3/uL Red Blood Count 3.27 L 4.30-5.52 10^6/uL Hemoglobin 10.4 L 13.3-17.7 g/dL Hematocrit 33 L 40-54 % Mean Corpuscular Volume 101 H 80-99 fL Mean Corpuscular Hemoglobin 32 25-34 pg Mean Corpuscular Hemoglobin Concent 32 32-36 g/dL Red Cell Distribution Width 14.6 H 10.0-14.5 % Platelet Count 256 130-400 10^3/uL Mean Platelet Volume 9.0 9.0-12.2 fL Immature Granulocyte % (Auto) 1 % Neutrophils (%) (Auto) 69 42-75 % Lymphocytes (%) (Auto) 17 12-44 % Monocytes (%) (Auto) 8 0-12 % Eosinophils (%) (Auto) 5 0-10 % Basophils (%) (Auto) 1 0-10 % Neutrophils # (Auto) 5.2 1.8-7.8 10^3/uL Lymphocytes # (Auto) 1.3 1.0-4.0 10^3/uL Monocytes # (Auto) 0.6 0.0-1.0 10^3/uL Eosinophils # (Auto) 0.4 H 0.0-0.3 10^3/uL Basophils # (Auto) 0.0 0.0-0.1 10^3/uL Immature Granulocyte # (Auto) 0.1 0.0-0.1 10^3/uL Sodium Level 141 135-145 MMOL/L Potassium Level 3.9 3.6-5.0 MMOL/L Chloride Level 101 98-107 MMOL/L Carbon Dioxide Level 24 21-32 MMOL/L Anion Gap 16 H 5-14 MMOL/L Blood Urea Nitrogen 16 7-18 MG/DL Creatinine 3.69 H 0.60-1.30 MG/DL Estimat Glomerular Filtration Rate 15 BUN/Creatinine Ratio 4 Glucose Level 143 H 70-105 MG/DL Calcium Level 9.0 8.5-10.1 MG/DL Corrected Calcium 9.3 8.5-10.1 MG/DL Total Bilirubin 0.4 0.1-1.0 MG/DL Aspartate Amino Transf (AST/SGOT) 13 5-34 U/L Alanine Aminotransferase (ALT/SGPT) 9 0-55 U/L Alkaline Phosphatase 69 40-136 U/L Total Protein 6.3 L 6.4-8.2 GM/DL Albumin 3.6 3.2-4.5 GM/DL My Orders Orders - DANYA DOMINGUEZ DO Ed Iv/Invasive Line Start (11/17/21 19:02) Monitor-Rhythm Ecg Trace Only (11/17/21 19:02) Cbc With Automated Diff (11/17/21 19:02) Comprehensive Metabolic Panel (11/17/21 19:02) Ct Chest/Abdomen/Pelvis Wo (11/17/21 19:02) Vital Signs/I&O 11/17/21 18:52 Temp 37.0 Pulse 74 Resp 16 B/P (MAP) 127/77 (94) Capillary Refill : Departure Impression Primary Impression: Right-sided chest wall pain Disposition: XFER SNF Condition: Stable Departure-Patient Inst. Decision time for Depature: 20:25 Referrals: PAIGE PERRY MD (PCP/Family) Primary Care Physician Patient Instructions: Chest Pain That Is Not Caused by the Heart (DC), Rib Fracture (DC), Shoulder Blade Fracture Add. Discharge Instructions: CONTINUE YOUR CURRENT MEDICATIONS PRESCRIBED YOU MAY TAKE OXYCODONE 1 PILL DAILY FOR PAIN FOR THE NEXT 3 DAYS, THEN FURTHER ORDERS BY DR. PERRY All discharge instructions reviewed with patient and/or family. Voiced understanding. DANYA DOMINGUEZ DO Nov 17, 2021 19:30
--- NOTE | 2021-11-17 20:21 | Diagnostic Imaging Report ---
PROCEDURE: CT chest, abdomen, and pelvis without contrast. TECHNIQUE: Multiple contiguous axial images were obtained through the chest, abdomen, and pelvis without the use of intravenous contrast. Auto Exposure Controls were utilized during the CT exam to meet ALARA standards for radiation dose reduction. INDICATION: Patient has history of rib fractures and has right chest pain. COMPARISON: CT chest, abdomen and pelvis 07/28/2021. CHEST: Fracture of the superomedial right scapular blade again noted. Sternum and manubrium are intact. Irregularity and contour deformity of the right 8th ribs distal cartilage and costochondral junction again noted. No new bony chest wall pathology. Soft tissue density chest wall structure ventral to this site is 6.6 x 3.2 cm today, previously 5.8 x 3.8 cm not substantially changed and given the history of injury and cartilaginous deformity this is presumed a residual hematoma. Its interval recurrence could not be excluded. No acute bony rib fracture deformity. There is some subsegmental partial atelectasis of the dependent right lung base. No hemothorax. No pneumothorax. No findings of pulmonary contusion or lung laceration. Atherosclerotic aorta nonaneurysmal. There is coronary artery stenting. The aorta nonaneurysmal. No acute spinal abnormality. ABDOMEN/PELVIS: There are supraumbilical ventral abdominal wall fatty hernias, bilaterally, unchanged and noninflamed. There is no bowel, biliary or urinary tract obstruction. No abdominal pelvic intraperitoneal or retroperitoneal hemorrhage. There is chronic renal atrophy and presumed acquired cyst. Aorta is atherosclerotic but nonaneurysmal. The liver, spleen, gallbladder, bile ducts, adrenals and pancreas are nonacute. The bony structures of the abdomen and pelvis are nonacute. There is no ascites. IMPRESSION: 1. Chest: Distal right 8th rib cartilage irregularity redemonstrated with an overlying chest wall soft tissue like mass effect, similar to the prior, favored to be hematoma. Its evaluation limited by the absence of contrast. No acute pulmonary parenchymal, pleural or mediastinal injury and the spine appears nonacute. There is redemonstration of patient's extra-articular right scapular fracture. 2. Abdomen/pelvis: No acute abdominopelvic abnormality identified. Dictated by: Dictated on workstation # [id number]
[2021-11-17 21:00] VITALS: BP 120/72
== END 2021-11-17 21:00 ==
LOC: EDUNIT# 18:49 → ER 18:49
DX: R07.81 Pleurodynia (principal); I87.2 Venous insufficiency (chronic) (peripheral); R60.9 Edema, unspecified; Z79.891 Long term (current) use of opiate analgesic; Z79.899 Other long term (current) drug therapy
CPT/HCPCS: 36415; 71250; 74176; 80053; 85025; 93041

== ENCOUNTER 2021-12-07 09:26 | Emergency (ER) | payer MEDICARE, MEDICAID ==
[~2021-12-07] VITALS: Ht 172.7 cm; Wt 74.0 kg
--- NOTE | 2021-12-07 09:32 | ED GI ---
General Stated Complaint: ABD PAIN History of Present Illness Date Seen by Provider: Dec 07, 2021 Time Seen by Provider: 09:32 Initial Comments 86-year-old male with PMH of ESRD on hemodialysis on Saturday/Saturday/Saturday, iron deficiency anemia, hypotension on midodrine 3 times daily, restless leg syndrome, colon cancer, BPH, is sent here from the assisted with complaints of a right upper quadrant mass which has grown 3 times the usual size since yesterday. Patient has associated abdominal pain in that area, and also looks tired. Patient states that his pain is about 6-9/10 depending on his activity, pain is exacerbated upon movement and bending down. Denies fever, diarrhea, constipation, dizziness, chest pain, palpitations, URI symptoms. Allergies and Home Medications Allergies Coded Allergies: No Known Drug Allergies (Unverified , 11/12/12) Patient Home Medication List Home Medication List Reviewed: Yes Acetaminophen (Acetaminophen Extra Strength) 500 Mg Tablet, 500 MG PO QID, (Reported) Entered as Reported by: MILENA ASHBY on 09/07/211517 Ascorbate Calcium (Vitamin C) 500 Mg Tablet, 500 MG PO DAILY, (Reported) Entered as Reported by: MILENA ASHBY on 09/07/211517 Aspirin (Aspirin) 81 Mg Tab.chew, 81 MG PO DAILY, (Reported) Entered as Reported by: AMADO SOLORZANO on 02/09/15 0945 Atorvastatin Calcium (Atorvastatin Calcium) 20 Mg Tablet, 20 MG PO DAILY, (Reported) Entered as Reported by: MILENA ASHBY on 09/07/211517 Calcitriol (Calcitriol) 0.25 Mcg Capsule, 0.25 MCG PO DAILY, (Reported) Entered as Reported by: MILENA ASHBY on 09/07/211517 Cyanocobalamin (Vitamin B-12) (B-12) 1,000 Mcg Tablet, 1,000 MCG PO DAILY, (Reported) Entered as Reported by: MILENA ASHBY on 09/07/211517 Ferrous Sulfate (Feosol) 325 Mg (65 Mg Iron) Tablet, 325 MG PO DAILY, (Reported) Entered as Reported by: MILENA ASHBY on 09/07/211517 Flaxseed Oil (Flaxseed Oil) 1,000 Mg Capsule, 1,000 MG PO DAILY, (Reported) Entered as Reported by: MILENA ASHBY on 09/07/211517 Gabapentin (Neurontin) 300 Mg Capsule, 300 MG PO DAILY, (Reported) Entered as Reported by: MILENA ASHBY on 09/07/211517 Midodrine HCl (Midodrine HCl) 10 Mg Tablet, 10 MG PO TID, (Reported) Entered as Reported by: MILENA ASHBY on 09/07/211517 Tamsulosin HCl (Flomax) 0.4 Mg Cap, 0.4 MG PO HS, (Reported) Entered as Reported by: MINH ESQUIVEL on 05/11/20 1428 Ubidecarenone (Coenzyme Q10) 100 Mg Tablet, 100 MG PO DAILY, (Reported) Entered as Reported by: MILENA ASHBY on 09/07/211517 Vitamin E Mixed (Vitamin E) 1,000 Unit Capsule, 1,000 UNIT PO DAILY, (Reported) Entered as Reported by: MILENA ASHBY on 09/07/211517 Review of Systems Review of Systems Constitutional: no symptoms reported EENTM: No Symptoms Reported Respiratory: No Symptoms Reported Cardiovascular: No Symptoms Reported Gastrointestinal: Abdomen Distended, Abdominal Pain Genitourinary: No Symptoms Reported Musculoskeletal: no symptoms reported Skin: no symptoms reported Psychiatric/Neurological: No Symptoms Reported Endocrine: No Symptoms Reported Hematologic/Lymphatic: No Symptoms Reported Past [facility] Hx Immunizations Up To Date Tetanus Booster (TDap): Unknown PED Vaccines UTD: Yes First/Initial COVID19 Vaccinat: UNKNOWN Second COVID19 Vaccination Koffi: UNKNOWN Third COVID19 Vaccination Date: UNKNOWN Seasonal Allergies Seasonal Allergies: No Past Medical History Surgery/Hospitalization HX: PMH: END STAGE RENAL DISEASE, MUSCLE WEAKNESS, PRIMARY HTN, RLS, ATAXIC GAIT, TIA, BPH, Surgeries: Yes (COLON CANCER/BOWEL RESECTION) Abdominal, Bowel Surgery, Dialysis Respiratory: Yes Sleep Apnea Currently Using CPAP: No Cardiac: Yes Hypertension Neurological: Yes (RESTLESS LEG; ATAXIC GAIT) Stroke, TIA Genitourinary: Yes (ESRD IN DIALYSIS) Benign Prostatic Hyperpl, Renal Failure, Dialysis Gastrointestinal: Yes (hx colon cancer/colon resection) Musculoskeletal: Yes (RESTLESS LEG; GAIT DISTURBANCE; FREQUENT FALLS) Endocrine: No HEENT: No Cancer: Yes Skin, Colon Did You Recieve Any Treatments: Yes What Type of Treatment Did You: Surgical Intervention Psychosocial: No Integumentary: No Blood Disorders: No Family Medical History STRESS TEST 07/25/[address] MCDANIEL: 1. Patient tolerated Lexiscan well 2. 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 Diffuse left ventricular hypokinesia more severe at the mid to apical anterior wall and true apex, EF 38% Physical Exam Vital Signs Vital Signs - First Documented 12/07/21 09:29 Temp 36.7 Pulse 99 Resp 20 B/P (MAP) 89/47 (61) Pulse Ox 93 O2 Delivery Nasal Cannula Capillary Refill : Height/Weight/BMI Height: 5'9.00" Weight: 160lbs. oz. 72.878161uh; 24.00 BMI Method:Stated General Appearance: mild distress HEENT: PERRL/EOMI Neck: non-tender, full range of motion Respiratory: chest non-tender, lungs clear, normal breath sounds Cardiovascular: normal peripheral pulses, regular rate, rhythm, other (bilateral pedal edema) Gastrointestinal: normal bowel sounds, soft, distended, mass, other (RUQ mass the size of a tennis ball, that gets bigger when pt moves, tender to touch, and is reddish purple in color. Pt has 2 other soft non-tender masses in the midline of the abdomen near the umbilicus) Extremities: normal range of motion, pedal edema Back: normal inspection, no CVA tenderness, no vertebral tenderness Skin: pallor Lymphatic: no adenopathy Focused Exam Lactate Level 12/07/21 09:36: Lactic Acid Level 1.34 Lactic Acid Level Laboratory Tests Test 12/07/21 09:36 Lactic Acid Level 1.34 MMOL/L (0.50-2.00) Progress/Results/Core Measures Results/Orders Lab Results Laboratory Tests Test 12/07/21 09:36 Range/Units White Blood Count 12.0 H 4.3-11.0 10^3/uL Red Blood Count 3.72 L 4.30-5.52 10^6/uL Hemoglobin 11.3 L 13.3-17.7 g/dL Hematocrit 36 L 40-54 % Mean Corpuscular Volume 98 80-99 fL Mean Corpuscular Hemoglobin 30 25-34 pg Mean Corpuscular Hemoglobin Concent 31 L 32-36 g/dL Red Cell Distribution Width 15.7 H 10.0-14.5 % Platelet Count 285 130-400 10^3/uL Mean Platelet Volume 9.7 9.0-12.2 fL Immature Granulocyte % (Auto) 1 % Neutrophils (%) (Auto) 81 H 42-75 % Lymphocytes (%) (Auto) 9 L 12-44 % Monocytes (%) (Auto) 8 0-12 % Eosinophils (%) (Auto) 1 0-10 % Basophils (%) (Auto) 0 0-10 % Neutrophils # (Auto) 9.7 H 1.8-7.8 10^3/uL Lymphocytes # (Auto) 1.1 1.0-4.0 10^3/uL Monocytes # (Auto) 1.0 0.0-1.0 10^3/uL Eosinophils # (Auto) 0.1 0.0-0.3 10^3/uL Basophils # (Auto) 0.1 0.0-0.1 10^3/uL Immature Granulocyte # (Auto) 0.1 0.0-0.1 10^3/uL Prothrombin Time 14.4 12.2-14.7 SEC INR Comment 1.1 0.8-1.4 Activated Partial Thromboplast Time 39 H 24-35 SEC D-Dimer 3.88 H 0.00-0.49 UG/ML Sodium Level 139 135-145 MMOL/L Potassium Level 4.2 3.6-5.0 MMOL/L Chloride Level 94 L 98-107 MMOL/L Carbon Dioxide Level 29 21-32 MMOL/L Anion Gap 16 H 5-14 MMOL/L Blood Urea Nitrogen 37 H 7-18 MG/DL Creatinine 5.59 H 0.60-1.30 MG/DL Estimat Glomerular Filtration Rate 9 BUN/Creatinine Ratio 7 Glucose Level 134 H 70-105 MG/DL Lactic Acid Level 1.34 0.50-2.00 MMOL/L Calcium Level 9.4 8.5-10.1 MG/DL Corrected Calcium 9.6 8.5-10.1 MG/DL Magnesium Level 2.0 1.6-2.4 MG/DL Total Bilirubin 0.4 0.1-1.0 MG/DL Aspartate Amino Transf (AST/SGOT) 13 5-34 U/L Alanine Aminotransferase (ALT/SGPT) 13 0-55 U/L Alkaline Phosphatase 87 40-136 U/L Total Protein 7.0 6.4-8.2 GM/DL Albumin 3.7 3.2-4.5 GM/DL Lipase 10 8-78 U/L My Orders Orders - YVONNE MORALES MD Cbc With Automated Diff (12/07/21 09:33) Comprehensive Metabolic Panel (12/07/21 09:33) Lactic Acid Analyzer (12/07/21 09:33) Lipase (12/07/21 09:33) Magnesium (12/07/21 09:33) Ua Culture If Indicated (12/07/21 09:33) Chest 1 View, Ap/Pa Only (12/07/21 09:33) Us Abdomen Complete 89902 (12/07/21 09:40) Midodrine Tablet (Proamatine) (12/07/21 09:59) Blood Culture (12/07/21 10:00) Ct Abdomen/Pelvis Wo (12/07/21 11:24) Acetaminophen Tablet/Caplet (Tylenol T (12/07/21 12:45) Fibrin Degradation Products (12/07/21 13:45) Protime With Inr (12/07/21 13:45) Partial Thromboplastin Time (12/07/21 13:45) Lung Scan Perfusion (12/07/21 14:16) Tamsulosin Capsule (Flomax Capsule) (12/07/21 15:28) Ceftriaxone 1 Gm Pre-Mix (Rocephin 1 Gm (12/07/21 15:30) Metronidazole 500mg/100ml Ivpb (Flagyl 5 (12/07/21 15:30) Us Venous Lower Ext Balta (12/07/21 15:53) Medications Given in ED Current Medications Medications Dose Ordered Sig/Adrian Route Start Time Stop Time Status Last Admin Dose Admin Acetaminophen 650 mg ONCE ONCE PO 12/07/21 12:45 12/07/21 12:46 DC 12/07/21 13:04 650 MG Ceftriaxone Sodium/Dextrose 50 ml @ 100 mls/hr ONCE ONCE IV 12/07/21 15:30 12/07/21 15:59 DC 12/07/21 16:12 100 MLS/HR Metronidazole 100 ml @ 100 mls/hr ONCE ONCE IV 12/07/21 15:30 12/07/21 16:29 DC 12/07/21 16:52 100 MLS/HR Vital Signs/I&O 12/07/21 09:29 Temp 36.7 Pulse 99 Resp 20 B/P (MAP) 89/47 (61) Pulse Ox 93 O2 Delivery Nasal Cannula Progress Progress Note : Progress Note 1. 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 No free fluid or air. No abdominal or pelvic lymphadenopathy. Aorta is normal in caliber without aneurysm. There is a focal area of destruction of the right ninth chondral cartilage (series 2, image 65). There is an overlying soft tissue mass extending into the subcutaneous tissues measuring 8.8 x 5.3 cm. The mass has increased from prior exam when it measured 3.7 x 4.0 cm. Right upper abdominal wall mass has increased in size, and there is an area of destruction of the right ninth chondral cartilage. No mineralization is seen within the lesion, but this finding is concerning for a chondrosarcoma. Chest wall MRI with and without contrast recommended as well as evaluation by Orthopedic Oncology. - Labs: mild WBC elevation of 12, source unidentified - UA: pt has not given urine - Lactic acid is 3.22. Holding fluids since pt is on HD and appears to be fluid overloaded - Ceftriaxone & Flagyl iv in ER - Will transfer patient to [facility]. Patient was accepted by Dr. Thompson's nurse practitioner, Coby. 2. HYPOTENSION: - Pt's baseline BP is 90/60 - In ER, BP range is 92/61 ranging down to 86/53. - Midodrine 10mg STAT in ER with BP back to baseline. 3. ELEVATED D-DIMER: - D-dimer is 3.88 - VQ scan ordered , but will not be done until 6 or 7 pm. May have to be done at transferring facility if not done by the time he gets a bed. 4. ESRD on HD WITH HYPOKALEMIA: - s. Creatinine is 5.59 and BUN is 37 - Pt has HD on //, and he had HD yesterday. - s. K is 2.9 Diagnostic Imaging Diagonstic Imaging: Xray, CT, Ultrasound Plain Films/CT/US/NM/MRI: chest, abdomen Comments [facility] [place], [place] NAME: SHANNAN JEFFERSON [facility] REC#: [id number] PT STATUS: REG ER : 1935 PHYSICIAN: YVONNE MORALES MD ADMIT DATE: 12/07/21/ER Draft Date of Exam:12/07/21 CT ABDOMEN/PELVIS WO EXAMINATION: CT abdomen and pelvis without contrast. TECHNIQUE: Multiple contiguous axial images were obtained through the abdomen and pelvis without the use of intravenous contrast. All CT scans use one or more of the following dose optimizing techniques: Automated exposure control, MA and/or KvP adjustment based on patient size and exam type or iterative reconstruction. HISTORY: Abdominal pain and mass. COMPARISON: 11/17/2021. FINDINGS: Limited views of the lower thorax show mild bibasilar atelectasis. Coronary arteries are calcified. The liver is normal without focal lesion. There is no biliary ductal dilation. Gallbladder is normal. Pancreas is normal. Spleen is normal. Adrenal glands are normal. Kidneys are atrophic. There are small cysts in the kidneys. No suspicious renal lesions. There is no hydronephrosis. Urinary bladder is normal. Bowel is normal in caliber without obstruction or inflammation. There are two fat-containing ventral abdominal hernias. No free fluid or air. No abdominal or pelvic lymphadenopathy. Aorta is normal in caliber without aneurysm. There is a focal area of destruction of the right ninth chondral cartilage (series 2, image 65). There is an overlying soft tissue mass extending into the subcutaneous tissues measuring 8.8 x 5.3 cm. The mass has increased from prior exam when it measured 3.7 x 4.0 cm. No mineralization is seen within the mass. IMPRESSION: 1. Right upper abdominal wall mass has increased in size, and there is an area of destruction of the right ninth chondral cartilage. No mineralization is seen within the lesion, but this finding is concerning for a chondrosarcoma. Chest wall MRI with and without contrast recommended as well as evaluation by Orthopedic Oncology. Dictated on workstation # [id number] Dict: 12/07/21 1142 Trans: 12/07/21 1151 [id number] Interpreted by: RAJIV WEINER MD Electronically signed by: [facility]. [place], [place] NAME: SHANNAN JEFFERSON [facility] REC#: [id number] PT STATUS: REG ER : 1935 PHYSICIAN: YVONNE MORALES MD ADMIT DATE: 12/07/21/ER Signed Date of Exam:12/07/21 CHEST 1 VIEW, AP/PA ONLY HISTORY: Chest/abdominal mass. TECHNIQUE: Frontal view of the chest COMPARISON: CT from 11/17/2021 FINDINGS: There is mild elevation of the right hemidiaphragm. No consolidation is seen. There is no pleural effusion or pneumothorax. The cardiac silhouette is normal in size. No acute osseous abnormality is seen. IMPRESSION: 1. No acute pulmonary abnormality. Dictated by: Dictated on workstation # [id number] Dict: 12/07/21 1028 Trans: 12/07/21 1147 [id number] Interpreted by: BRUCE JIMENEZ MD Electronically signed by: BRUCE JIMENEZ MD 12/07/21 1147 [facility], [place] NAME: SHANNAN JEFFERSON [facility] REC#: [id number] PT STATUS: REG ER : 1935 PHYSICIAN: YVONNE MORALES MD ADMIT DATE: 12/07/21/ER Signed Date of Exam:12/07/21 US ABDOMEN COMPLETE [id number] INDICATION: Soft tissue mass in the right upper quadrant. Abdominal mass. COMPARISON: CT from 11/17/2021 PROCEDURE: Ultrasound abdomen complete. TECHNIQUE: Multiple real-time grayscale images were obtained of the abdomen in various projections. FINDINGS: In the soft tissues of the right upper quadrant of the abdomen there is a heterogeneous mass which measures up to 6.5 x 3.6 cm in size. This does appear to have internal blood flow on these images. The pancreas appears normal. The tail is obscured by bowel gas. Imaged portions of the aorta and IVC are unremarkable. The liver has normal echogenicity and no focal lesions are identified. The main portal vein is hepatopetal. There is no intrahepatic biliary dilatation. The common bile duct measures 4 mm. The gallbladder wall is not thickened. No stones are seen. There is no pericholecystic fluid. Sonographic Cortes sign is negative. The right kidney is not well seen and appears markedly atrophic. This is measured at about 4.6 cm in length. There is a small 1.5 cm cyst associated with the right kidney. The left kidney is also markedly atrophic measuring 4.8 cm in length. No hydronephrosis is seen bilaterally. The spleen is normal in size. No focal splenic lesions are seen. There is no free fluid. IMPRESSION: 1. Large vascular soft tissue mass in the right upper abdomen. This is concerning for neoplasm given the internal blood flow, consider tissue sampling. Hematoma is thought less likely. 2. Severe atrophy of the bilateral kidneys. Dictated by: Dictated on workstation # [id number] Dict: 12/07/21 1138 Trans: 12/07/21 1154 [id number] [id number] Interpreted by: BRUCE JIMENEZ MD Electronically signed by: BRUCE JIMENEZ MD 12/07/21 1154 Departure Impression Primary Impression: Chondrosarcoma of rib Additional Impressions: Elevated d-dimer Hypotension Qualified Codes: I95.9 - Hypotension, unspecified ESRD (end stage renal disease) on dialysis Disposition: 02 XFER SHT-TRM HOSP Condition: Stable Transfer Transfer Reason: Exceeds level of care Time Spoke to Accepting Phy: 14:45 Transfer Progress Notes See plan Transfer Facility: [facility] Method of Transfer: EMS Departure-Patient Inst. Referrals: PAIGE PRERY MD (PCP/Family) Primary Care Physician YVONNE MORALES MD Dec 07, 2021 09:32
[2021-12-07 09:43] LABS: BASOPHILS # (AUTO) 0.1 10^3/uL (0.0-0.1); BASOPHILS % (AUTO) 0 % (0-10); EOSINOPHILS # (AUTO) 0.1 10^3/uL (0.0-0.3); EOSINOPHILS % (AUTO) 1 % (0-10); HEMATOCRIT 36 % (40-54); HEMOGLOBIN 11.3 g/dL (13.3-17.7); LYMPHOCYTES # (AUTO) 1.1 10^3/uL (1.0-4.0); LYMPHOCYTES % (AUTO) 9 % (12-44); MEAN CORPUSCULAR HEMOGLOBIN 30 pg (25-34); MEAN CORPUSCULAR HGB CONC 31 g/dL (32-36); MEAN CORPUSCULAR VOLUME 98 fL (80-99); MEAN PLATELET VOLUME 9.7 fL (9.0-12.2); MONOCYTES % (AUTO) 8 % (0-12); NEUTROPHILS # (AUTO) 9.7 10^3/uL (1.8-7.8); NEUTROPHILS % (AUTO) 81 % (42-75); PLATELET COUNT 285 10^3/uL (130-400)
[2021-12-07 09:52] LABS: ALBUMIN 3.7 GM/DL (3.2-4.5); POTASSIUM 4.2 MMOL/L (3.6-5.0)
[2021-12-07 09:53] LABS: CALCIUM 9.4 MG/DL (8.5-10.1)
[2021-12-07 09:56] LABS: BILIRUBIN,TOTAL 0.4 MG/DL (0.1-1.0)
[2021-12-07 09:58] LABS: CREATININE SERUM 5.59 MG/DL (0.60-1.30)
[2021-12-07] MEDS ORDERED: MIDODRINE 10 MG (PROAMATINE) TAB PO STA (09:59)
--- NOTE | 2021-12-07 10:32 | Diagnostic Imaging Report ---
HISTORY: Chest/abdominal mass. TECHNIQUE: Frontal view of the chest COMPARISON: CT from 11/17/2021 FINDINGS: There is mild elevation of the right hemidiaphragm. No consolidation is seen. There is no pleural effusion or pneumothorax. The cardiac silhouette is normal in size. No acute osseous abnormality is seen. IMPRESSION: 1. No acute pulmonary abnormality. Dictated by: Dictated on workstation # [id number]
--- NOTE | 2021-12-07 11:50 | Diagnostic Imaging Report ---
INDICATION: Soft tissue mass in the right upper quadrant. Abdominal mass. COMPARISON: CT from 11/17/2021 PROCEDURE: Ultrasound abdomen complete. TECHNIQUE: Multiple real-time grayscale images were obtained of the abdomen in various projections. FINDINGS: In the soft tissues of the right upper quadrant of the abdomen there is a heterogeneous mass which measures up to 6.5 x 3.6 cm in size. This does appear to have internal blood flow on these images. The pancreas appears normal. The tail is obscured by bowel gas. Imaged portions of the aorta and IVC are unremarkable. The liver has normal echogenicity and no focal lesions are identified. The main portal vein is hepatopetal. There is no intrahepatic biliary dilatation. The common bile duct measures 4 mm. The gallbladder wall is not thickened. No stones are seen. There is no pericholecystic fluid. Sonographic Cortes sign is negative. The right kidney is not well seen and appears markedly atrophic. This is measured at about 4.6 cm in length. There is a small 1.5 cm cyst associated with the right kidney. The left kidney is also markedly atrophic measuring 4.8 cm in length. No hydronephrosis is seen bilaterally. The spleen is normal in size. No focal splenic lesions are seen. There is no free fluid. IMPRESSION: 1. Large vascular soft tissue mass in the right upper abdomen. This is concerning for neoplasm given the internal blood flow, consider tissue sampling. Hematoma is thought less likely. 2. Severe atrophy of the bilateral kidneys. Dictated by: Dictated on workstation # [id number]
--- NOTE | 2021-12-07 11:51 | Diagnostic Imaging Report ---
EXAMINATION: CT abdomen and pelvis without contrast. TECHNIQUE: Multiple contiguous axial images were obtained through the abdomen and pelvis without the use of intravenous contrast. All CT scans use one or more of the following dose optimizing techniques: Automated exposure control, MA and/or KvP adjustment based on patient size and exam type or iterative reconstruction. HISTORY: Abdominal pain and mass. COMPARISON: 11/17/2021. FINDINGS: Limited views of the lower thorax show mild bibasilar atelectasis. Coronary arteries are calcified. The liver is normal without focal lesion. There is no biliary ductal dilation. Gallbladder is normal. Pancreas is normal. Spleen is normal. Adrenal glands are normal. Kidneys are atrophic. There are small cysts in the kidneys. No suspicious renal lesions. There is no hydronephrosis. Urinary bladder is normal. Bowel is normal in caliber without obstruction or inflammation. There are two fat-containing ventral abdominal hernias. No free fluid or air. No abdominal or pelvic lymphadenopathy. Aorta is normal in caliber without aneurysm. There is a focal area of destruction of the right ninth chondral cartilage (series 2, image 65). There is an overlying soft tissue mass extending into the subcutaneous tissues measuring 8.8 x 5.3 cm. The mass has increased from prior exam when it measured 3.7 x 4.0 cm. No mineralization is seen within the mass. IMPRESSION: 1. Right upper abdominal wall mass has increased in size, and there is an area of destruction of the right ninth chondral cartilage. No mineralization is seen within the lesion, but this finding is concerning for a chondrosarcoma. Chest wall MRI with and without contrast recommended as well as evaluation by Orthopedic Oncology. Dictated by: Dictated on workstation # [id number]
[2021-12-07] MEDS ORDERED: ACETAMINOPHEN 325 MG TABLET PO ONE (12:45)
[2021-12-07 13:59] LABS: FIBRIN DEGRADATION PRODUCTS 3.88 UG/ML (0.00-0.49); INR 1.1 (0.8-1.4); PROTHROMBIN TIME PATIENT 14.4 SEC (12.2-14.7)
[2021-12-07] MEDS ORDERED: TAMSULOSIN 0.4 MG (FLOMAX) CAP PO STA (15:28)
[2021-12-07] MEDS ORDERED: cefTRIAXone 1 GM PRE-MIX 50 ML IV ONE (15:30)
[2021-12-07] MEDS ORDERED: metroNIDAZOLE 500MG/100ML IVPB 100 ML IV ONE (15:30)
--- NOTE | 2021-12-07 17:39 | Diagnostic Imaging Report ---
INDICATION: Elevated D-dimer. COMPARISON: None. TECHNIQUE: Duplex, grayscale and color-flow imaging of the bilateral lower extremity venous system was performed. FINDINGS: The common femoral vein, superficial femoral vein, profunda femoris and popliteal veins are normal. These vessels show normal compressibility, color flow and Doppler augmentation. The deep calf veins, although not very well seen, demonstrate no distinct intraluminal thrombus. IMPRESSION: Negative venous Doppler of the bilateral lower extremities. Dictated by: Dictated on workstation # [id number]
--- NOTE | 2021-12-07 17:46 | Diagnostic Imaging Report ---
INDICATION: Elevated d-dimer. Evaluate for pulmonary embolism. TECHNIQUE: Multiplanar perfusion imaging of the lungs was performed after intravenous administration of 5.4 mCi of technetium 99m MAA. COMPARISON: Chest radiograph 12/07/2021. FINDINGS: The perfusion images demonstrate no finding of segmental perfusion defects within the lungs. Ventilation portion of the examination was not performed. IMPRESSION: No segmental perfusion defects are demonstrated within the lungs. The examination is a low probability for pulmonary embolism. Dictated by: Dictated on workstation # [id number]
[2021-12-07 18:45] VITALS: BP 93/56
== END 2021-12-07 19:54 | disposition short-term general hospital (02) ==
LOC: EDUNIT# 09:26 → ER 09:29
DX: C41.3 Malignant neoplasm of ribs, sternum and clavicle (principal); I95.9 Hypotension, unspecified; R79.1 Abnormal coagulation profile; I12.0 Hypertensive chronic kidney disease with stage 5 chronic kidney disease or end stage renal disease; N18.6 End stage renal disease; D63.1 Anemia in chronic kidney disease; Z99.2 Dependence on renal dialysis; Z79.899 Other long term (current) drug therapy
CPT/HCPCS: 71045; 74176; 76700; 78580; 80053; 83605; 83690; 83735; 85025; 85379; 85610; 85730; 87040; 93970; 99284; A9540; 36415

== ENCOUNTER → 2022-01-07 | Outpatient (CLI) | payer MEDICARE, MEDICAID ==
[2022-01-07 11:33] LABS: INR 2.8 (0.8-1.4); PROTHROMBIN TIME PATIENT 29.7 SEC (12.2-14.7)
== END ==
LOC: LABNPT 09:44
PROVIDERS: ATTEND Family Medicine
DX: Z01.89 Encounter for other specified special examinations (principal)
CPT/HCPCS: 85610

== ENCOUNTER 2022-01-14 05:10 | Emergency (ER) | payer MEDICARE, MEDICAID ==
[~2022-01-14] VITALS: Ht 175 cm; Wt 74.0 kg
[2022-01-14] MEDS ORDERED: LIDOCAINE 1% INJ 20 ML VIAL IJ STA (05:17)
[2022-01-14] MEDS ORDERED: LIDOCAINE 1% INJ 10 ML VIAL ONE (05:22)
--- NOTE | 2022-01-14 05:23 | ED Lower Extremity ---
General Chief Complaint: Laceration Stated Complaint: LACERATION Source: patient Exam Limitations: no limitations History of Present Illness Date Seen by Provider: Jan 14, 2022 Time Seen by Provider: 05:13 Initial Comments Here with report of large laceration to the lateral aspect of the right lower extremity along the calf. States he was transferring and apparently got it caught on something. He does not know what. Denies other injury. Wound bandage at [facility]. Bleeding is controlled. Tetanus status is unknown per the patient. Onset: just prior to arrival Severity: moderate Pain/Injury Location: right leg Method of Injury: incised Modifying Factors: Improves With Rest, Improves With Other (Dressing) Allergies and Home Medications Allergies Coded Allergies: No Known Drug Allergies (Unverified , 11/12/12) Patient Home Medication List Home Medication List Reviewed: Yes Acetaminophen (Acetaminophen Extra Strength) 500 Mg Tablet, 500 MG PO QID, (Reported) Entered as Reported by: MILENA ASHBY on 09/07/211517 Ascorbate Calcium (Vitamin C) 500 Mg Tablet, 500 MG PO DAILY, (Reported) Entered as Reported by: MILENA ASHBY on 09/07/211517 Aspirin (Aspirin) 81 Mg Tab.chew, 81 MG PO DAILY, (Reported) Entered as Reported by: AMADO SOLORZANO on 02/09/15 0945 Atorvastatin Calcium (Atorvastatin Calcium) 20 Mg Tablet, 20 MG PO DAILY, (Reported) Entered as Reported by: MILENA ASHBY on 09/07/211517 Calcitriol (Calcitriol) 0.25 Mcg Capsule, 0.25 MCG PO DAILY, (Reported) Entered as Reported by: MILENA ASHBY on 09/07/211517 Cyanocobalamin (Vitamin B-12) (B-12) 1,000 Mcg Tablet, 1,000 MCG PO DAILY, (Reported) Entered as Reported by: MILENA ASHBY on 09/07/211517 Ferrous Sulfate (Feosol) 325 Mg (65 Mg Iron) Tablet, 325 MG PO DAILY, (Reported) Entered as Reported by: MILENA ASHBY on 09/07/211517 Flaxseed Oil (Flaxseed Oil) 1,000 Mg Capsule, 1,000 MG PO DAILY, (Reported) Entered as Reported by: MILENA ASHBY on 09/07/211517 Gabapentin (Neurontin) 300 Mg Capsule, 300 MG PO DAILY, (Reported) Entered as Reported by: MILENA ASHBY on 09/07/21 151 Midodrine HCl (Midodrine HCl) 10 Mg Tablet, 10 MG PO TID, (Reported) Entered as Reported by: MILENA ASHBY on 09/07/211517 Tamsulosin HCl (Flomax) 0.4 Mg Cap, 0.4 MG PO HS, (Reported) Entered as Reported by: MINH ESQUIVEL on 05/11/20 1428 Ubidecarenone (Coenzyme Q10) 100 Mg Tablet, 100 MG PO DAILY, (Reported) Entered as Reported by: MILENA ASHBY on 09/07/211517 Vitamin E Mixed (Vitamin E) 1,000 Unit Capsule, 1,000 UNIT PO DAILY, (Reported) Entered as Reported by: MILENA ASHBY on 09/07/211517 Review of Systems Constitutional: No chills, No fever Respiratory: no symptoms reported Cardiovascular: no symptoms reported Skin: lesions (16 to 18 cm laceration right lower extremity) Past Fupzmsu-Pdauvk-Capujf Hx Patient Social History Tobacco Use?: No Immunizations Up To Date Tetanus Booster (TDap): Unknown PED Vaccines UTD: Yes First/Initial COVID19 Vaccinat: UNKNOWN Second COVID19 Vaccination Koffi: UNKNOWN Third COVID19 Vaccination Date: UNKNOWN Seasonal Allergies Seasonal Allergies: No Past Medical History Surgery/Hospitalization HX: PMH: END STAGE RENAL DISEASE, MUSCLE WEAKNESS, PRIMARY HYPOTENSION, RLS, ATAXIC GAIT, TIA, BPH, Surgeries: Yes (COLON CANCER/BOWEL RESECTION) Abdominal, Bowel Surgery, Dialysis Respiratory: Yes Sleep Apnea Currently Using CPAP: No Cardiac: Yes Hypertension Neurological: Yes (RESTLESS LEG; ATAXIC GAIT) Stroke, TIA Genitourinary: Yes (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 MCDANIEL: 1. Patient tolerated Lexiscan well 2. 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 Diffuse left ventricular hypokinesia more severe at the mid to apical anterior wall and true apex, EF 38% Physical Exam Vital Signs Vital Signs - First Documented 01/14/22 05:11 Temp 37.0 Pulse 87 Resp 16 B/P (MAP) 120/74 (89) Pulse Ox 97 O2 Delivery Room Air Capillary Refill : Height, Weight, BMI Height: 5'9.00" Weight: 160lbs. oz. [id number]; 24.00 BMI Method:Stated General Appearance: WD/WN, no apparent distress Cardiovascular: regular rate, rhythm, no murmur Respiratory: lungs clear, normal breath sounds Legs: right leg other (16 to 18 cm laceration lateral aspect of right mid calf area that is vertically oriented with bleeding controlled.) Neurologic/Psychiatric: alert, oriented x 3 Skin: warm/dry, other (Laceration as listed above) Procedures/Interventions Wound Location: Lower Extremities Other Wound Location Right lateral mid calf Wound Length (cm): 14 Wound's Depth, Shape: flap Wound Explored: contaminated Irrigated w/ Saline (ccs): 250 Betadine Prep?: Yes Anesthesia: 1% Lidocaine Volume Anesthetic (ccs): 12 Wound Debrided: minimal Suture: Prolene Suture Size: 4-0 Number of Sutures: 16 Layer Closure?: 1 Number Deep Layer Sutures: 0 Sterile Dressing Applied?: Yes Progress Cleaned with Betadine and flushed with copious amounts of saline and scrubbed with sponge. This was after local anesthesia around the wound with 1% lid ocaine. Closed with simple interrupted sutures and covered with antibiotic ointment and sterile dressing. Tolerated procedure well with no complications. Progress/Results/Core Measures Results/Orders My Orders Orders - LU CASTANEDA MD Dipht,Pertuss(Acell),Tet Adult (Boostrix (01/14/22 05:30) Lidocaine 1% Inj 20 Ml (Xylocaine 1% Inj (01/14/22 05:17) Lidocaine 1% Inj 10 Ml (Xylocaine 1% Inj (01/14/22 05:22) Medications Given in ED Current Medications Medications Dose Ordered Sig/Adrian Route Start Time Stop Time Status Last Admin Dose Admin Diphtheria/ Tetanus/Acell Pertussis 0.5 ml ONCE ONCE IM 01/14/22 05:30 01/14/22 05:31 DC 01/14/22 05:24 0.5 ML Lidocaine HCl 10 ml STK-MED ONCE .ROUTE 01/14/22 05:22 01/14/22 05:27 DC 01/14/22 05:28 20 ML Vital Signs/I&O 01/14/22 05:11 Temp 37.0 Pulse 87 Resp 16 B/P (MAP) 120/74 (89) Pulse Ox 97 O2 Delivery Room Air Progress Progress Note : Progress Note Seen and evaluated. Tetanus ordered. We will proceed with wound anesthetizing and cleaning and then suture closure. 611: Wound closure complete. Discharged back to [facility] with return precautions. Verbalized understanding of instructions and agreement with plan. Report given to [facility] staff by nursing team. Departure Impression Primary Impression: Laceration of right lower leg Qualified Codes: S81.811A - Laceration without foreign body, right lower leg, initial encounter Disposition: HOME, SELF-CARE Condition: Stable Departure-Patient Inst. Decision time for Depature: 06:13 Referrals: PAIGE PERRY MD (PCP/Family) Primary Care Physician Patient Instructions: Laceration Repair With Stitches (DC) Add. Discharge Instructions: All discharge instructions reviewed with patient and/or family. Voiced und erstanding. Stitches out in 10 to 14 days. Use antibiotic ointment and dressing over wound changing daily. It is okay to shower but do not soak in bathtub or other body of water until healed. Return for worse pain, swelling, red streaks up the leg, foul-smelling drainage, fever or other concerns as needed. LU CASTANEDA MD Jan 14, 2022 05:23
[2022-01-14] MEDS ORDERED: TETANUS,DIPTH,PERTUSS P/F (BOOSTRIX) 0.5 ML VIAL IM ONE (05:30)
[2022-01-14 07:28] VITALS: BP 92/58
== END 2022-01-14 07:25 | disposition home or self-care (01) ==
LOC: EDUNIT# 05:10 → ER 05:14
DX: S81.811A Laceration without foreign body, right lower leg, initial encounter (principal); Z23 Encounter for immunization; W26.8XXA Contact with other sharp object(s), not elsewhere classified, initial encounter
CPT/HCPCS: 12005; 90715

== ENCOUNTER → 2022-08-07 | Outpatient (CLI) | payer MEDICARE, MEDICAID ==
[~2022-08-07] MED LIST changes: +CLOP-31 PO; -CLOP75TA69 PO
== END ==
LOC: CARD 09:17
PROVIDERS: ATTEND Physician Assistant
DX: I11.9 Hypertensive heart disease without heart failure (principal); I34.0 Nonrheumatic mitral (valve) insufficiency
CPT/HCPCS: 93306

== ENCOUNTER 2022-08-21 09:51 | Outpatient (RCR) | payer MEDICARE, MEDICAID ==
[2022-08-09 14:17] LABS: BASOPHILS % (AUTO) 1 % (0-10); EOSINOPHILS # (AUTO) 0.7 10^3/uL (0.0-0.3); EOSINOPHILS % (AUTO) 11 % (0-10); HEMATOCRIT 28 % (40-54); HEMOGLOBIN 9.3 g/dL (13.3-17.7); LYMPHOCYTES # (AUTO) 1.7 10^3/uL (1.0-4.0); LYMPHOCYTES % (AUTO) 27 % (12-44); MEAN CORPUSCULAR HEMOGLOBIN 32 pg (25-34); MEAN CORPUSCULAR HGB CONC 33 g/dL (32-36); MEAN CORPUSCULAR VOLUME 99 fL (80-99); MEAN PLATELET VOLUME 10.2 fL (9.0-12.2); MONOCYTES # (AUTO) 0.9 10^3/uL (0.0-1.0); MONOCYTES % (AUTO) 14 % (0-12); NEUTROPHILS % (AUTO) 47 % (42-75); PLATELET COUNT 182 10^3/uL (130-400); WHITE BLOOD COUNT 6.4 10^3/uL (4.3-11.0)
[~2022-08-21 09:51] MED LIST changes: +[UNRECOGNIZED DRUG - REMARK] INJ SCH
== END 2022-09-02 | disposition home or self-care (01) ==
LOC: ONC 09:51
PROVIDERS: ATTEND Internal Medicine Hematology & Oncology
DX: I12.9 Hypertensive chronic kidney disease with stage 1 through stage 4 chronic kidney disease, or unspecified chronic kidney disease (principal); N18.30 Chronic kidney disease, stage 3 unspecified; D63.1 Anemia in chronic kidney disease; E03.9 Hypothyroidism, unspecified; E78.2 Mixed hyperlipidemia; Z85.038 Personal history of other malignant neoplasm of large intestine
CPT/HCPCS: 82378; 82728; 83540; 83550; 85025; 96372

== ENCOUNTER → 2022-09-06 | Outpatient (CLI) | payer MEDICARE, MEDICAID ==
[~2022-09-06] MED LIST changes: +CATHETER FLUSH 10 ML SYR IVP PRN; +REGADENOSON 0.4 MG/5 ML SYR (LEXISCAN) IV ONE; -[UNRECOGNIZED DRUG - REMARK] INJ SCH
[2022-09-06 08:19] VITALS: BP 121/70
--- NOTE | 2022-09-06 12:02 | Cardiology Stress Test Report ---
Stress Test Report Date of Procedure/Referring: Date of Procedure: September 06, 2022 PCP Paige Pollard MD Admitting Physician Admitting Physician: Attending Physician: Carol Higginbotham Baseline Heart Rate: 76 Baseline Blood Pressure: Blood Pressure Systolic: 121 Blood Pressure Diastolic: 70 Baseline Vitals Vital Signs Date Time Temp Pulse Resp B/P (MAP) Pulse Ox O2 Delivery O2 Flow Rate FiO2 09/06/22 08:19 76 121/70 (87) Baseline EKG: Baseline EKG: NSR Summary After explaining the procedure to the patient, he signed a consent and then brought to the stress nuclear laboratory. Patient received 0.4 mg Lexiscan for stress test, ECG, heart rate and blood pressure were monitored continuously. Resting and stress dose of radio tracer were injected, imaging was acquired and reviewed in short axis, horizontal long axis and vertical long axis views. TID: 1.13 SSS: 34 SDS: 2 EF: 40 Patient tolerated Lexiscan well Total infarction of the apex, mid to apical anterior wall and apical inferior wall, no significant reversibility noted Prominent left ventricle, akinesia of the apex, hypokinesia of the anterior wall and inferior wall, ejection fraction 40% Copy Copies To 1: PAIGE POLLARD MD, BASHAR J MD September 06, 2022 12:02
== END ==
LOC: CARD 06:36
PROVIDERS: ATTEND Physician Assistant
DX: I10 Essential (primary) hypertension (principal)
CPT/HCPCS: 78452; 93017; A9502

== ENCOUNTER 2022-09-13 10:02 | Outpatient (RCR) | payer MEDICARE, MEDICAID ==
[~2022-09-13 10:02] MED LIST changes: -CATHETER FLUSH 10 ML SYR IVP PRN; -REGADENOSON 0.4 MG/5 ML SYR (LEXISCAN) IV ONE; +[UNRECOGNIZED DRUG - REMARK] INJ SCH
[2022-09-13 10:35] LABS: BASOPHILS # (AUTO) 0.1 10^3/uL (0.0-0.1); BASOPHILS % (AUTO) 1 % (0-10); EOSINOPHILS # (AUTO) 0.4 10^3/uL (0.0-0.3); EOSINOPHILS % (AUTO) 7 % (0-10); HEMATOCRIT 38 % (40-54); HEMOGLOBIN 11.7 g/dL (13.3-17.7); LYMPHOCYTES # (AUTO) 1.2 10^3/uL (1.0-4.0); LYMPHOCYTES % (AUTO) 20 % (12-44); MEAN CORPUSCULAR HEMOGLOBIN 31 pg (25-34); MEAN CORPUSCULAR HGB CONC 31 g/dL (32-36); MEAN CORPUSCULAR VOLUME 100 fL (80-99); MEAN PLATELET VOLUME 9.8 fL (9.0-12.2); MONOCYTES # (AUTO) 0.6 10^3/uL (0.0-1.0); MONOCYTES % (AUTO) 10 % (0-12); NEUTROPHILS % (AUTO) 63 % (42-75); PLATELET COUNT 233 10^3/uL (130-400); WHITE BLOOD COUNT 6.3 10^3/uL (4.3-11.0)
[2022-09-13 11:02] LABS: BILIRUBIN,TOTAL 0.4 MG/DL (0.1-1.0); CALCIUM 8.4 MG/DL (8.5-10.1); CREATININE SERUM 6.38 MG/DL (0.60-1.30); POTASSIUM 4.6 MMOL/L (3.6-5.0); TOTAL PROTEIN 6.6 GM/DL (6.4-8.2)
== END 2022-10-03 | disposition home or self-care (01) ==
LOC: ONC 10:02
PROVIDERS: ATTEND Internal Medicine Hematology & Oncology
DX: I12.9 Hypertensive chronic kidney disease with stage 1 through stage 4 chronic kidney disease, or unspecified chronic kidney disease (principal); N18.30 Chronic kidney disease, stage 3 unspecified; D63.1 Anemia in chronic kidney disease; E03.9 Hypothyroidism, unspecified; E78.2 Mixed hyperlipidemia; I10 Essential (primary) hypertension; Z85.038 Personal history of other malignant neoplasm of large intestine
CPT/HCPCS: 80053; 82378; 82728; 83540; 83550; 85025; 96372

== ENCOUNTER 2022-12-13 13:34 | Outpatient (RCR) | payer MEDICARE, MEDICAID ==
[~2022-12-13 13:34] MED LIST changes: -[UNRECOGNIZED DRUG - REMARK] INJ SCH
[2022-12-13 14:08] LABS: BASOPHILS # (AUTO) 0.1 10^3/uL (0.0-0.1); BASOPHILS % (AUTO) 1 % (0-10); EOSINOPHILS # (AUTO) 0.5 10^3/uL (0.0-0.3); EOSINOPHILS % (AUTO) 7 % (0-10); HEMATOCRIT 32 % (40-54); HEMOGLOBIN 9.9 g/dL (13.3-17.7); LYMPHOCYTES % (AUTO) 25 % (12-44); MEAN CORPUSCULAR HEMOGLOBIN 32 pg (25-34); MEAN CORPUSCULAR HGB CONC 31 g/dL (32-36); MEAN CORPUSCULAR VOLUME 101 fL (80-99); MEAN PLATELET VOLUME 10.6 fL (9.0-12.2); MONOCYTES # (AUTO) 0.7 10^3/uL (0.0-1.0); MONOCYTES % (AUTO) 9 % (0-12); NEUTROPHILS # (AUTO) 4.5 10^3/uL (1.8-7.8); NEUTROPHILS % (AUTO) 58 % (42-75); PLATELET COUNT 186 10^3/uL (130-400); WHITE BLOOD COUNT 7.8 10^3/uL (4.3-11.0)
[2022-12-13 14:23] LABS: POTASSIUM 4.2 MMOL/L (3.6-5.0)
[2022-12-13 14:25] LABS: CALCIUM 9.1 MG/DL (8.5-10.1)
[2022-12-13 14:26] LABS: TOTAL PROTEIN 6.9 GM/DL (6.4-8.2)
[2022-12-13 14:28] LABS: BILIRUBIN,TOTAL 0.5 MG/DL (0.1-1.0)
[2022-12-13 14:29] LABS: CREATININE SERUM 9.29 MG/DL (0.60-1.30)
== END 2023-01-03 | disposition home or self-care (01) ==
LOC: ONC 13:34
PROVIDERS: ATTEND Internal Medicine Hematology & Oncology
DX: C18.7 Malignant neoplasm of sigmoid colon (principal); I12.9 Hypertensive chronic kidney disease with stage 1 through stage 4 chronic kidney disease, or unspecified chronic kidney disease; N18.30 Chronic kidney disease, stage 3 unspecified; D63.1 Anemia in chronic kidney disease; E03.9 Hypothyroidism, unspecified; E78.2 Mixed hyperlipidemia; I10 Essential (primary) hypertension
CPT/HCPCS: 80053; 82378; 82728; 83540; 83550; 85025; G0463; 36415; 99214